=== PATIENT | male | born 1950 | race Caucasian/White ===

== ENCOUNTER 2017-06-18 15:59 | Emergency (ER) | payer OTHER ==
[~2017-06-18] VITALS: Ht 182.9 cm; Wt 80.0 kg
[2017-06-18 16:01] VITALS: BP 137/83; PULSE 81; RESP 16; TEMP 99.1; O2SAT 98
--- NOTE | 2017-06-18 18:09 | PD ---
HPI Chief Complaint: Edema Time Seen by Provider: 17:46 Travel History International Travel<30 days: No Contact w/Intl Traveler<30days: No Traveled to known affect area: No History of Present Illness HPI 66-year-old male presents to the emergency department for evaluation of right leg edema that started approximately one week ago. He saw a primary care physician approximately 3-4 days ago and had ultrasound completed. He was told the ultrasound was negative for DVT. He does state that he thinks he may have been told he a Vazquez cyst. However, since the ultrasound, swelling has worsened with pain with ambulation. The patient went to an urgent care Center was referred to the emergency department for another ultrasound to rule out DVT. Patient denies any fevers or chills. No chest pain or shortness of breath. Patient reports history of varicose veins. Severity moderate. Exacerbating factor is ambulation. Alleviating factor: rest. Pain is aching, sharp in calf. PFSH Social History Alcohol Use: No Tobacco Use: No Substance Use: No Allergies-Medications (Allergen,Severity, Reaction): Coded Allergies: No Known Allergies (Verified Allergy, Mild, 06/18/17) Reported Meds & Prescriptions Reported Meds & Active Scripts Active Reported Aspirin 81 Mg Chew 81 Mg CHEW DAILY Zantac (Ranitidine HCl) 150 Mg Tab 150 Mg PO BID Review of Systems Except as stated in HPI: all other systems reviewed are Neg Physical Exam Narrative GENERAL: Well-nourished, well-developed male patient, afebrile. SKIN: Focused skin assessment warm/dry. No erythema or warmth of her right leg. HEAD: Normocephalic. Atraumatic. EYES: No scleral icterus. No injection or drainage. NECK: Supple, trachea midline. No JVD or lymphadenopathy. CARDIOVASCULAR: Regular rate and rhythm without murmurs, gallops, or rubs. Right pedal pulses 1+, able to easily found with Doppler. RESPIRATORY: Breath sounds equal bilaterally. No accessory muscle use. Lungs sounds are clear to auscultation. GASTROINTESTINAL: Abdomen soft, non-tender, nondistended. MUSCULOSKELETAL: No cyanosis, or edema. Patient's tenderness and swelling over right calf. No erythema or warmth. Calf is soft, no evidence of compartment syndrome. BACK: Nontender without obvious deformity. No CVA tenderness. Data Data Last Documented VS Vital Signs Date Time Temp Pulse Resp B/P (MAP) Pulse Ox O2 Delivery O2 Flow Rate FiO2 06/18/17 18:22 70 17 141/86 (104) 100 Room Air 06/18/17 16:01 99.1 Orders Orders Us Leg Venous Doppler (06/18/17 ) MDM Medical Decision Making Medical Screen Exam Complete: Yes Emergency Medical Condition: Yes Medical Record Reviewed: Yes Interpretation(s) US leg venous doppler right - normal examination; Complex Vazquez's Cyst Differential Diagnosis DVT versus Vazquez cyst versus edema Narrative Course 66-year-old male presents to the emergency department for evaluation of right leg pain and swelling that started 1 week ago. Venous Doppler ultrasound of right lower extremity is ordered and pending. US shows normal examination, complex Vazquez cyst. Patient is instructed to elevate, warm compresses, follow up with his primary care physician. Patient return here for any acute worsening of symptoms. He verbalizes agreement and understanding. The patient was discharged in stable condition with instructions, including return instructions and follow up instructions. Diagnosis Primary Impression: Vazquez cyst Qualified Codes: M71.21 - Synovial cyst of popliteal space [Vazquez], right knee Referrals: Primary Care Physician call for appointment Patient Instructions: Bakers Cyst (ED), General Instructions Additional Instructions: Elevate your right leg. Wear knee immobilizer as needed for support. Ice/heat. [id number] Tylenol or ibuprofen as needed for pain. Follow-up with your primary care physician. Return to the emergency department for any acute worsening of symptoms. Med/Other Pt SpecificInfo: No Change to Meds Disposition: 01 DISCHARGE HOME Condition: Stable Adela Chadwick Jun 18, 2017 18:09
[2017-06-18] MEDS ORDERED: ZANT150T2 PO (18:13)
[2017-06-18] MEDS ORDERED: ASPI-516 CHEW (18:13)
[2017-06-18 18:22] VITALS: BP 141/86; PULSE 70; RESP 17; O2SAT 100
--- NOTE | 2017-06-18 19:17 | RADRPT ---
EXAM DATE/TIME: 06/18/2017 18:47 [place] COMPARISON: No previous studies available for comparison. INDICATIONS : Right leg swelling. MEDICAL HISTORY : Gastroesophageal reflux disease. Varicocele. SURGICAL HISTORY : None. ENCOUNTER: Subsequent ACUITY: 4 - 6 days PAIN SCORE: 9/10 LOCATION: Right leg. TECHNIQUE: Venous ultrasound of the leg was performed from the inguinal ligament to the proximal calf. Real-isael e, color Doppler and spectral tracing, compression and augmentation techniques were used. FINDINGS: There is normal compressibility of the deep venous system from the inguinal region to the proximal ca lf. No echogenic clot is seen in the lumen of the common femoral, femoral, popliteal, and posterior tibial veins. There is a normal response of the venous system to proximal and distal augmentation an d respiration. CONCLUSION: Normal examination. Complex Vazquez's cyst. Humberto Thomas MD on June 18, 2017 at 19:14 Board Certified Radiologist. This report was verified electronically.
[2017-06-18 19:19] VITALS: BP 134/75; PULSE 72; RESP 18; O2SAT 100
== END 2017-06-18 20:17 | disposition home or self-care (01) ==
LOC: NEPC 15:59
DX: M71.21 Synovial cyst of popliteal space [Baker], right knee (principal); Z79.82 Long term (current) use of aspirin; Z79.899 Other long term (current) drug therapy
CPT/HCPCS: 93971; 99284; L1830

== ENCOUNTER 2018-01-31 23:25 | Emergency (ER) | payer OTHER ==
[~2018-01-31] VITALS: Ht 182.9 cm; Wt 70.0 kg
[~2018-01-31 23:25] MED LIST: ASPI-516 CHEW; ZANT150T2 PO
[2018-01-31 23:28] VITALS: BP 151/79; PULSE 77; RESP 16; TEMP 97.5; O2SAT 98
[2018-02-01 00:10] VITALS: BP 151/75; PULSE 71; RESP 16; O2SAT 98
[2018-02-01] MEDS ORDERED: SODIUM CHLORID 0.9% 500 ML INJ 500 ML IV ONE (00:30)
[2018-02-01 01:00] LABS: BASOPHIL % 0.6 % (0.0-2.0); EOSINOPHIL # 0.1 TH/MM3 (0-0.4); EOSINOPHIL % 0.7 % (0.0-4.0); HEMATOCRIT 42.3 % (39.0-51.0); HEMOGLOBIN 14.8 GM/DL (13.0-17.0); LYMPH % 16.9 % (9.0-44.0); LYMPHOCYTE # 1.2 TH/MM3 (1.0-4.8); MEAN CELL VOLUME 94.8 FL (80.0-100.0); MEAN CORPUSCULAR HEMOGLOBIN 33.2 PG (27.0-34.0); MEAN PLATELET VOLUME 11.3 FL (7.0-11.0); MONO % 12.1 % (0.0-8.0); MONOCYTE # 0.9 TH/MM3 (0-0.9); NEUT % 69.7 % (16.0-70.0); PLATELET COUNT 194 TH/MM3 (150-450); RED BLOOD COUNT 4.46 MIL/MM3 (4.50-5.90); RED CELL DISTRIBUTION WIDTH 13.7 % (11.6-17.2); WHITE BLOOD COUNT 7.2 TH/MM3 (4.0-11.0)
[2018-02-01 01:12] LABS: PROTHROMBIN TIME - PATIENT 10.6 SEC (9.8-11.6)
[2018-02-01 01:23] LABS: ALBUMIN 4.1 GM/DL (3.4-5.0); ALT (GPT) 29 U/L (12-78); AST (GOT) 27 U/L (15-37); BICARBONATE 28.8 MEQ/L (21.0-32.0); BLOOD UREA NITROGEN 13 MG/DL (7-18); CALCIUM 8.5 MG/DL (8.5-10.1); CHLORIDE 102 MEQ/L (98-107); CREATININE 1.22 MG/DL (0.60-1.30); GLOMERULAR FILTRATION RATE 59 ML/MIN (>89); GLUCOSE,RANDOM 103 MG/DL (74-106); SODIUM (NA) 138 MEQ/L (136-145)
[2018-02-01 01:27] LABS: ALKALINE PHOSPHATASE 52 U/L (45-117); TOTAL BILIRUBIN ADULT 1.8 MG/DL (0.2-1.0); TOTAL PROTEIN 6.9 GM/DL (6.4-8.2); TROPONIN I LESS THAN 0.02 NG/ML (0.02-0.05)
[2018-02-01 02:09] LABS: BACTERIA, URINE RARE /hpf; BILIRUBIN, URINE NEG (NEG); BLOOD, URINE NEG (NEG); GLUCOSE,URINE NEG (NEG); HYALINE CAST, URINE 1 /lpf (RARE); KETONE, URINE NEG (NEG); MUCUS URINE FEW /lpf (OCC); NITRITE,URINE NEG (NEG); URINE COLOR YELLOW (YELLW/STRAW); URINE LEUKOCYTE ESTERASE NEG (NEG)
--- NOTE | 2018-02-01 04:30 | PD ---
HPI Chief Complaint: Medical Clearance Time Seen by Provider: 00:11 Travel History International Travel<30 days: No Contact w/Intl Traveler<30days: No Traveled to known affect area: No History of Present Illness HPI Patient is a 67 year old male who is brought in by his friends due to concerns he is not acting right. Per the women with him, he is a good friend of their mothers who suddenly today. They say he is not acting like himself. He says he has lost a considerable amount of weight over the past few months. He says he does not have much of an appetite. He also complains of ringing in his ears. He says this has all been going on for several months. He denies headache, chest pain, fever, chills. He has seen his primary doctor and was given medication for depression and told he had hypothyroidism. He has also seen ENT for the ringing in his ears, but did not want to have the testing done that was recommended. He says he does not really know why he was brought to the ED. [facility] Past Medical History GERD: Yes Social History Alcohol Use: No Tobacco Use: No Substance Use: No Allergies-Medications (Allergen,Severity, Reaction): Coded Allergies: No Known Allergies (Verified Allergy, Mild, 01/31/18) Reported Meds & Prescriptions Reported Meds & Active Scripts Active Reported Aspirin 81 Mg Chew 81 Mg CHEW DAILY Zantac (Ranitidine HCl) 150 Mg Tab 150 Mg PO BID Review of Systems Except as stated in HPI: all other systems reviewed are Neg General / Constitutional: No: Fever, Chills Eyes: No: Blurred Vision HENT: No: Headaches Cardiovascular: No: Chest Pain or Discomfort Respiratory: No: Shortness of Breath Gastrointestinal: No: Nausea, Vomiting Musculoskeletal: No: Myalgias Skin: No Rash, No Change in Pigmentation Neurologic: No: Weakness, Dizziness, Syncope Psychiatric: Positive: Depression Physical Exam Narrative GENERAL: Awake and alert, in no acute distress. SKIN: Focused skin assessment warm/dry. No wounds or signs of infection. HEAD: Atraumatic. Normocephalic. EYES: Pupils equal and round. No scleral icterus. EOMI. ENT: Mucous membranes pink and moist. NECK: Trachea midline. No JVD. CARDIOVASCULAR: Regular rate and rhythm. No murmur appreciated. RESPIRATORY: No accessory muscle use. Clear to auscultation. Breath sounds equal bilaterally. GASTROINTESTINAL: Abdomen soft, nondistended. Mild tenderness along the left side of the abdomen. MUSCULOSKELETAL: No obvious deformities. No clubbing. No cyanosis. No edema. NEUROLOGICAL: Awake and alert, oriented x 4. No obvious cranial nerve deficits. Motor grossly within normal limits. Normal speech. PSYCHIATRIC: Appropriate mood and affect; insight and judgment normal. Data Data Last Documented VS Vital Signs Date Time Temp Pulse Resp B/P (MAP) Pulse Ox O2 Delivery O2 Flow Rate FiO2 02/01/18 00:10 71 16 151/75 (100) 98 Room Air 01/31/18 23:28 97.5 Orders Orders Iv Access Insert/Monitor (02/01/18 00:30) Complete Blood Count With Diff (02/01/18 00:30) Comprehensive Metabolic Panel (02/01/18 00:30) Act Partial Throm Time (Ptt) (02/01/18 00:30) Prothrombin Time / Inr (Pt) (02/01/18 00:30) Troponin I (02/01/18 00:30) Creatine Kinase (Cpk) (02/01/18 00:30) Urinalysis - C+S If Indicated (02/01/18 00:30) Alcohol (Ethanol) (02/01/18 00:30) Thyroid Stimulating Hormone (02/01/18 00:30) Sodium Chlorid 0.9% 500 Ml Inj (Ns 500 M (02/01/18 00:30) Labs Laboratory Tests Test 02/01/18 00:35 02/01/18 01:55 White Blood Count 7.2 TH/MM3 Red Blood Count 4.46 MIL/MM3 Hemoglobin 14.8 GM/DL Hematocrit 42.3 % Mean Corpuscular Volume 94.8 FL Mean Corpuscular Hemoglobin 33.2 PG Mean Corpuscular Hemoglobin Concent 35.0 % Red Cell Distribution Width 13.7 % Platelet Count 194 TH/MM3 Mean Platelet Volume 11.3 FL Neutrophils (%) (Auto) 69.7 % Lymphocytes (%) (Auto) 16.9 % Monocytes (%) (Auto) 12.1 % Eosinophils (%) (Auto) 0.7 % Basophils (%) (Auto) 0.6 % Neutrophils # (Auto) 5.0 TH/MM3 Lymphocytes # (Auto) 1.2 TH/MM3 Monocytes # (Auto) 0.9 TH/MM3 Eosinophils # (Auto) 0.1 TH/MM3 Basophils # (Auto) 0.0 TH/MM3 CBC Comment DIFF FINAL Differential Comment Prothrombin Time 10.6 SEC Prothromb Time International Ratio 1.0 RATIO Activated Partial Thromboplast Time 22.8 SEC Blood Urea Nitrogen 13 MG/DL Creatinine 1.22 MG/DL Random Glucose 103 MG/DL Total Protein 6.9 GM/DL Albumin 4.1 GM/DL Calcium Level 8.5 MG/DL Alkaline Phosphatase 52 U/L Aspartate Amino Transf (AST/SGOT) 27 U/L Alanine Aminotransferase (ALT/SGPT) 29 U/L Total Bilirubin 1.8 MG/DL Sodium Level 138 MEQ/L Potassium Level 4.3 MEQ/L Chloride Level 102 MEQ/L Carbon Dioxide Level 28.8 MEQ/L Anion Gap 7 MEQ/L Estimat Glomerular Filtration Rate 59 ML/MIN Total Creatine Kinase 119 U/L Troponin I LESS THAN 0.02 NG/ML Thyroid Stimulating Hormone 3rd Gen 8.820 uIU/ML Ethyl Alcohol Level LESS THAN 3 MG/DL Urine Color YELLOW Urine Turbidity CLEAR Urine pH 6.0 Urine Specific [place] 1.010 Urine Protein NEG mg/dL Urine Glucose (UA) NEG mg/dL Urine Ketones NEG mg/dL Urine Occult Blood NEG Urine Nitrite NEG Urine Bilirubin NEG Urine Urobilinogen LESS THAN 2 mg/dL Urine Leukocyte Esterase NEG Urine RBC 1 /hpf Urine WBC LESS THAN 1 /hpf Urine Bacteria RARE /hpf Urine Hyaline Casts 1 /lpf Urine Mucus FEW /lpf Microscopic Urinalysis Comment CULT NOT INDICATED MDM Medical Decision Making Medical Screen Exam Complete: Yes Emergency Medical Condition: Yes Medical Record Reviewed: Yes Differential Diagnosis electrolyte abnormalities vs dehydration vs depression vs intraabdominal pathology Narrative Course Patient is a 67 year old male brought in by friends due to concerns he is not acting like himself. They do not see him on a regular basis, they live in [place]. History is vague as to why he is not acting like himself. Patient is alert, oriented x 4. Labs drawn show elevated TSH, no other abnormalities. Patient is refusing CT scans. We had a very long discussion as to why I believed he needed the scans. I explained that he has had pain and weight loss and we needed to check for masses or something else that could be causing his symptoms. He adamantly refuses the scans. He understands the consequences of not having further testing. Patient would like to go home. Patient is not altered and understands what is going on. I do not feel there is any reason to keep him here against his will. He is not a danger to himself or others. Patient advised that he needs to follow up with his doctor and start thyroid medicine. Advised he should go back to ENT to help with the ringing in his ears. Advised he may return at any time for any concerns. Diagnosis Primary Impression: Hypothyroid Qualified Codes: E03.9 - Hypothyroidism, unspecified Additional Impression: Tinnitus Qualified Codes: H93.13 - Tinnitus, bilateral Patient Instructions: General Instructions, Hypothyroidism (ED), Tinnitus (ED) Additional Instructions: You have hypothyroidism. Follow up with your doctor for treatment. Return to the ENT for help with the ringing in your ears. Return to the ED any time for any worsening symptoms. Disposition: 01 DISCHARGE HOME Condition: Stable Courtney Christianson MD Feb 01, 2018 04:30
[2018-02-01 09:00] VITALS: BP 138/72
== END 2018-02-01 09:03 | disposition home or self-care (01) ==
LOC: NEPC 23:25
DX: E03.9 Hypothyroidism, unspecified (principal); H93.13 Tinnitus, bilateral; R10.819 Abdominal tenderness, unspecified site; R63.4 Abnormal weight loss; K21.9 Gastro-esophageal reflux disease without esophagitis; Z79.899 Other long term (current) drug therapy
CPT/HCPCS: 80053; 80307; 81001; 82550; 84443; 84484; 85025; 85610; 85730; 99284; J7040

== ENCOUNTER 2018-02-15 07:17 | Observation (INO) ==
[2018-02-16 16:02] VITALS: BP 110/58; PULSE 78; RESP 18; TEMP 98.3; O2SAT 95
== END 2018-02-16 18:24 ==
LOC: NEDA 07:17 → NEPC 07:17 → NEPGCP 07:17
PROVIDERS: ADMIT Hospitalist; ATTEND Hospitalist

== ENCOUNTER 2018-02-16 18:03 | Inpatient (IN) ==
[2018-02-16] MEDS ORDERED: Acetaminophen 325 MG Tablet PO PRN (20:36)
[2018-02-17] MEDS ORDERED: Aluminum/Magnesium/Simethacone Susp 30 ML UDC PO PRN (07:53)
--- NOTE | 2018-02-17 16:41 | P.HPPSY ---
Provisional Diagnosis Admission Date: February 16, 2018 18:28 [place] I.: Major depressive disorder Competence Certification of Person's Competence To Provide Express and Informed Consent I have personally examined Lv High, a person being served at [facility] on, February 17, 2018 1632. Express and informed consent means consent voluntarily given in writing, by a competent person, after sufficient explanation and disclosure of the subject matter involved to enable the person to make a knowing and willful decision without any element of force, fraud, deceit, duress, or other form of constraint or coercion. This person is 18 years of age or older, is not now known to be incompetent to consent to treatment with a guardian advocate, and does not have a health care surrogate or proxy currently making medical treatment decisions. I have found this person to be one of the following: [] Competent to provide express and informed consent, as defined above, for voluntary admission to this facility and is competent to provide express and informed consent for treatment. He/she has the consistent capacity to make well reasoned, willful, and knowing decisions concerning his or her medical or mental health treatment. The person fully and consistently understands the purpose of the admission for examination/placement and is fully capable of personally exercising all rights assured under [place]xxx] Incompetent to provide express and informed consent to voluntary admission , and this is incompetent to provide express and informed consent to treatment. The person must be transferred to involuntary status and a petition for a guardian advocate filed with the Circuit Court. [] Refusing to provide express and informed consent to voluntary admission but is competent to provide express and informed consent for treatment. The person must be discharged or transferred to involuntary status. Form shall be completed within 24 hours of a person's arrival at the receiving facility and filed in the clinical record of each person: 1. Admitted on a voluntary basis 2. Permitted to provide express and informed consent to his/her own treatment 3. Allowed to transfer from involuntary to voluntary status 4. Prior to permitting a person to consent to his or her own treatment after having been previously found incompetent to consent to treatment. History of Present Illness Capacity: Has capacity History of Present Illness: Patient is a 67-year-old man, single, domiciled in [place], also security income, with a past psychiatric history of depression one previous psychiatric admission, no previous suicide attempts, no history of self- injurious behavior, with a past medical history significant for GERD, HTN, hypothyroidism, who was brought in by EMS after suicide attempt via overdose in the context of recently having loss a loved one as well as his pets which patient was transferred to the inpatient psychiatry unit after medical stabilization on the medical floor for further psychiatric evaluation and management. Patient was found sitting in hospital chair in day room of the unit noted with dysphoria, psychomotor retardation, neurovegetative symptoms of depression with limited cooperation due to current symptomatology. Patient states he is feeling "not so good" stating that he had taken Zoloft about 25 tablets as he was feeling depressed. He reports having had personal problems of a friend who recently , having been losing weight recently as well as having lost his pets as well. Patient states he has been feeling very lonely, isolated of which led to his overdose which after taking to have tablets of Zoloft expected to . Patient states that he had been previously on his medications but had stopped due to worsening of tinnitus. He reports having had decreased appetite, energy and concentration along with disturbance of sleep and having had suicide ideations for weeks. Patient this time continues report feeling depressed along with suicide ideations but denying any perceptual disturbances or delusions. Family psychiatric history: Unable to assess due to patient limited cooperation interview. Past psychiatric history: Previous psychiatric diagnoses depression, one previous psychiatric admission in 1995, no previous suicide attempts, denies self-injurious behavior. Patient reports previously on medication for depression, Zoloft but discontinued due to adverse drug reactions. Substance use history: Denies Past medical history: GERD, HTN, hypothyroidism Allergies: NKDA Social history: Single, domiciled in [place], also security benefits. - Inpatient Certification I certify that the inpatient services were ordered in accordance with Medicare regulations governing the order. This includes certification that hospital inpatient services are reasonable and necessary and in the case of services not specified as inpatient-only under 42 CFR 419.22(n), that they are appropriately provided as inpatient services in accordance to with the 2-midnight benchmark under 43 CFR 412.3(e) I certify that inpatient psychiatric hospital services are medically necessary. Evaluation and treatment and/or diagnostic testing are expected to improve the patient's condition. The patient needs on a daily basis, active treatment furnished directly by or requiring the supervision of inpatient psychiatric facility personnel. Estimated Total Length of Stay (Days): 5 Plans for Post Hospital Care: Not yet determined Review of Systems All other systems reviewed negative except as stated in HPI [facility] - History History Provided By: Patient - Family History Family History: Family History (Last Updated 02/15/18 @ 11:45 by John Vang MD) Other Anxiety and depression CAD (coronary artery disease) Heart disease - Tobacco History Second Hand Smoke Exposure: Yes Smoking Status: Refused to answer - Alcohol History How Often Do You Have a Drink Containing Alcohol: 2 to 4 times a month - Substance Use History Substance History: Unable to Obtain Quality Measures - Substance Abuse History Drug or alcohol use in the past 12 months: Denies - Patient Strengths Patient's strengths (minimum of 2): Verbal and communicative Medications and Allergies Active Medications: Active Medications Acetaminophen (Tylenol) 650 mg PO Q4H PRN PRN Reason: PAIN SCALE 1 TO 10 Al Hydrox/Mg Hydrox/Simethicone (Mag-Al Plus Susp Liq) 30 ml PO Q6H PRN PRN Reason: DYSPEPSIA Al Hydroxide/Mg Hydroxide (Milk Of Magnesia Liq) 30 ml PO Q12H PRN PRN Reason: Mild Constipation Diphenhydramine HCl (Benadryl) 50 mg PO HS DRAKE Hydroxyzine HCl (Atarax) 50 mg PO Q6H PRN PRN Reason: ANXIETY Venlafaxine HCl (Effexor Xr) 37.5 mg PO DAILY DRAKE Allergies Allergy/AdvReac Type Severity Reaction Status Date / Time No Known Allergies Allergy Verified 02/15/18 11:06 Home Medications Medication Instructions Recorded Confirmed Type sertraline [Zoloft] 50 mg PO DAILY 02/15/18 02/15/18 History Exam Vital signs: Vital Signs 02/16/18 22:27 Respiratory Rate 16 Intake & Output 02/16/18 02/17/18 02/17/18 18:59 06:59 18:59 Other: # Voids 1 Narrative: Patient not noted to be acute distress, no signs of gross motor abnormalities, no signs of tremor or EPS, is noted to have some psychomotor retardation. Mental Status Examination Appearance: Other (In [facility]) Consciousness: Alert Orientation: Person, Place, Date/Time Speech: Slow Fund of Knowledge: Inadequate Attention and Concentration: Inadequate Memory: Unremarkable Mood: Sad Affect: Sad Thought Process & Associations: Intact, Linear Thought Content: Appropriate Hallucination Type: None Delusion Type: None Suicidal Ideation: Yes Suicidal Plan: No Suicidal Intention: No Homicidal Ideation: No Homicidal Plan: No Homicidal Intention: No Insight: Poor Judgment: Poor Assessment and Plan - Assessment (1) Major depressive disorder Code(s): F32.9 - Major depressive disorder, single episode, unspecified Status : Acute - Plan Plan: Estimated LOS: [] days Patient is a 67-year-old man who carries a diagnosis of depression, one previous psychiatric admission, no previous suicide attempts who was admitted to the [place] psychiatry unit due to recent overdose in a suicide attempt in the context of worsening depressive symptoms and recent loss of a loved one which patient requires inpatient psychiatric stabilization and safety. Petition for involuntary hospitalization started, patient has capacity to consent for treatment We will start patient on Effexor XR 37.5 mg p.o. daily for depression, continue patient on rest of medications for chronic medical illnesses. Continue to monitor mood and behavior. Social work intervention for psychosocial assessment. Discharge planning a progress. Justification for Continued Inpatient Stay: At risk of further decompensation a lower level of care. Request Healthcare Surrogate/Guardian Advocate?: No (1) Major depressive disorder Qualifiers: Major depression recurrence: recurrent Active/Remission status: currently active Major depression episode severity: severe Psychotic features: without psychotic features Qualified Code(s): F33.2 - Major depressive disorder, recurrent severe without psychotic features
--- NOTE | 2018-02-17 17:52 | P.CON ---
History of Present Illness Service: Hospitalist Consult date: 02/17/18 Requesting Physician: John Zee Reason for Consult: Medical management Primary Care Provider: UNKNOWN Chief Complaint: "I do not feel well" History of Present Illness: Patient is a 67-year-old male with a past medical history of hypertension, GERD, hypothyroidism and tinnitus. Psychiatric history includes depression with no previous suicide attempt. He was admitted February 16, 2018 by Taylor pradhan due to suicide attempt. He told the officer responding to the call that he took "25 Zoloft". He has recently lost his girlfriend after an unexpected and has struggled with grief since then. He was previously seen in the emergency room January 2018 when family friends brought him saying that he was not acting like himself. They also report that he has lost a lot of weight over the past few months. At the time of that visit patient refused CT scan. He did have a complaint of ringing in the ears and was recommended to follow-up with ENT. He was found to be hypothyroid instructed to follow-up with his primary. Patient is seen in the rec room seated in a chair. He is unable to communicate much of his history or how he is currently feeling. He keeps referring to hearing voices in his room. He also becomes very teary when discussing his current life. He says he is very sad and still grieving his girlfriend. He has not followed up with primary concerning his hypothyroidism nor the ENT regarding the tinnitus. Reports that he still has the tinnitus however now it is sometimes "singsong". He denies any chest pain or shortness of breath. Denies fever, nausea or vomiting. Says that his appetite has improved some but he is unable to tell me how much he eats each day. He would like to know why he is so tired and feels so bad. Review of Systems unobtainable due to mental condition PMFSH - History History Provided By: Patient, Medical Record - Medical / Surgical Hx Neg / Unobtainable Surgical History: Unable to Obtain (Patient is unreliable historian) - Medical History Medical History: Medical History (Last Updated 02/17/18 @ 17:33 by CORWIN Clay) Grief (Acute) Hypothyroid (Acute) HTN (hypertension) (Acute) GERD (gastroesophageal reflux disease) (Acute) - Family History Family History: Family History (Last Reviewed 02/17/18 @ 17:33 by CORWIN Clay) Other Anxiety and depression CAD (coronary artery disease) Heart disease - Tobacco History Second Hand Smoke Exposure: Yes Smoking Status: Refused to answer - Alcohol History How Often Do You Have a Drink Containing Alcohol: Unable to Obtain - Substance Use History Substance History: Unable to Obtain Medications and Allergies Active Medications: Active Medications Acetaminophen (Tylenol) 650 mg PO Q4H PRN PRN Reason: PAIN SCALE 1 TO 10 Al Hydrox/Mg Hydrox/Simethicone (Mag-Al Plus Susp Liq) 30 ml PO Q6H PRN PRN Reason: DYSPEPSIA Al Hydroxide/Mg Hydroxide (Milk Of Magnesia Liq) 30 ml PO Q12H PRN PRN Reason: Mild Constipation Diphenhydramine HCl (Benadryl) 50 mg PO HS [facility] Hydroxyzine HCl (Atarax) 50 mg PO Q6H PRN PRN Reason: ANXIETY Venlafaxine HCl (Effexor Xr) 37.5 mg PO DAILY [facility] Allergies Allergy/AdvReac Type Severity Reaction Status Date / Time No Known Allergies Allergy Verified 02/15/18 11:06 Home Medications Medication Instructions Recorded Confirmed Type sertraline [Zoloft] 50 mg PO DAILY 02/15/18 02/15/18 History Physical Exam Vital signs: Vital Signs 02/16/18 22:27 Respiratory Rate 16 Intake & Output 02/16/18 02/17/18 02/17/18 18:59 06:59 18:59 Other: # Voids 1 Narrative: GENERAL: Thin appearing well-developed male. SKIN: Warm and dry. HEAD: Atraumatic. Normocephalic. EYES: Pupils equal and round. No scleral icterus. No injection or drainage. ENT: No nasal bleeding or discharge. Mucous membranes pink and moist. NECK: Trachea midline. No JVD. CARDIOVASCULAR: Regular rate and rhythm. RESPIRATORY: No accessory muscle use. Clear to auscultation. Breath sounds equal bilaterally. GASTROINTESTINAL: Abdomen soft, non-tender, nondistended. Hepatic and splenic margins not palpable. MUSCULOSKELETAL: Extremities without clubbing, cyanosis, or edema. No obvious deformities. NEUROLOGICAL: Awake and alert. No obvious cranial nerve deficits. Motor grossly within normal limits. Normal speech. PSYCHIATRIC: Easily upset; hallucinating ; insight and judgment poor. Assessment and Plan - Plan Summary of illness: Patient is a 67-year-old male with a past medical history of hypertension, GERD, hypothyroidism and tinnitus. Psychiatric history includes depression with no previous suicide attempt. He was admitted February 16, 2018 by Taylor pradhan due to suicide attempt. He told the officer responding to the call that he took "25 Zoloft". He has recently lost his girlfriend after an unexpected and has struggled with grief since then. He was previously seen in the emergency room January 2018 when family friends brought him saying that he was not acting like himself. They also report that he has lost a lot of weight over the past few months. At the time of that visit patient refused CT scan. He was found to be hypothyroid instructed to follow-up with his primary which he did not do. A&P: Grief and depression: -Being managed by psychiatry Hypothyroidism -Not currently taking any medication -TSH 8.8 on 01/31. Will repeat thyroid panel and consider starting levothyroxine if indicated. Will order labs and vital signs; no current results available. DVT prophylaxis; patient is currently ambulatory Discussed with: Patient and nurse. Thank you for this consult.
[2018-02-17 19:09] LABS: Baso # (Auto) 0.1 th/mm3 (0.0-0.2); Baso % (Auto) 0.5 % (0.0-2.0); Eos # (Auto) 0.1 th/mm3 (0.0-0.4); Eos % (Auto) 0.5 % (0.0-4.0); Hemoglobin 13.3 gm/dL (13.0-17.0); Lymph # (Auto) 1.5 th/mm3 (1.0-4.8); Lymph % (Auto) 11.8 % (9.0-44.0); Mean Corpuscular HGB Conc 34.2 % (32.0-36.0); Mean Corpuscular Hemoglobin 32.2 pg (27.0-34.0); Mean Corpuscular Volume 94.1 fL (80.0-100.0); Mean Platelet Volume 11.4 fL (7.0-11.0); Mono # (Auto) 1.3 th/mm3 (0.0-0.9); Mono % (Auto) 10.7 % (0.0-8.0); Neut # (Auto) 9.6 th/mm3 (1.8-7.7); Neut % (Auto) 76.5 % (16.0-70.0); Platelet Count 191 th/mm3 (150-450); Red Blood Count 4.14 mil/mm3 (4.50-5.90); Red Cell Distribution Width 14.2 % (11.6-17.2); White Blood Count 12.5 th/mm3 (4.0-11.0)
[2018-02-17 19:34] LABS: Albumin 3.5 g/dL (3.4-5.0); Anion Gap 9 meq/L (5-15); Aspartate Aminotransferase 20 U/L (15-37); Blood Urea Nitrogen 21 mg/dL (7-18); Calcium 8.6 mg/dL (8.5-10.1); Carbon Dioxide 29.8 meq/L (21.0-32.0); Chloride 103 meq/L (98-107); Glomerular Filtration Rate 55 mL/min (>89); Glucose,Random 124 mg/dL (74-106); Potassium 3.8 meq/L (3.5-5.1); Sodium 142 meq/L (136-145)
[2018-02-17 19:35] LABS: Alanine Aminotransferase 29 U/L (12-78)
[2018-02-17 19:45] LABS: Alkaline Phosphatase 48 U/L (45-117); Free T4 (Free Thyroxine) 0.83 ng/dL (0.76-1.46); Total Protein 6.6 g/dL (6.4-8.2)
--- NOTE | 2018-02-18 07:43 | ECG ---
Date Performed: 02/18/2018 Time Performed: 07:02:20 PTAGE: 67 years EKG: Sinus rhythm NORMAL ECG NO PREVIOUS TRACING DOCTOR: Ishmael Han Interpretating Date/Time 02/18/2018 07:42:45
[2018-02-18] MEDS: Venlafaxine XR 37.5 MG Capsule PO SCH (09:34)
--- NOTE | 2018-02-18 12:45 | P.PN ---
Subjective Interval history: Patient seen sitting up in bed. Reports that he is still hearing voices and seeing things in the pattern on the bathroom door. Asks "why is this happening to me". Does not appear to be in distress but does get teary. Denies any chest pain or shortness of breath. Denies any nausea or vomiting. Reports chills. Patient refuses HIV testing and CT despite encouragement and education. Nursing tells me that he has not been eating or drinking. Physical Exam Vital signs: Vital Signs 02/17/18 19:12 02/18/18 06:16 Temperature 97.1 F L 98.2 F Pulse Rate 67 80 Respiratory Rate 16 16 Blood Pressure 144/81 H 130/70 Pulse Oximetry 97 95 Intake & Output 02/17/18 02/18/18 02/18/18 18:59 06:59 18:59 Intake Total 820 / 820 0 / 0 0 / 0 Balance 820 / 820 0 / 0 0 / 0 Intake: Oral 820 / 820 0 / 0 0 / 0 Other: # Voids 2 1 Narrative: GENERAL: Thin appearing well-developed male. SKIN: Warm and dry. HEAD: Atraumatic. Normocephalic. EYES: Pupils equal and round. No scleral icterus. No injection or drainage. ENT: No nasal bleeding or discharge. Mucous membranes pink and moist. NECK: Trachea midline. No JVD. CARDIOVASCULAR: Regular rate and rhythm. RESPIRATORY: No accessory muscle use. Clear to auscultation. Breath sounds equal bilaterally. GASTROINTESTINAL: Abdomen soft, non-tender, nondistended. MUSCULOSKELETAL: Extremities without clubbing, cyanosis, or edema. No obvious deformities. NEUROLOGICAL: Awake and alert. No obvious cranial nerve deficits. Motor grossly within normal limits. Normal speech. PSYCHIATRIC: Easily upset; hallucinating ; insight and judgment poor. Results - Labs CBC & Chem 7: 02/17/18 18:38 02/17/18 18:38 Laboratory Results - last 24 hr 02/17/18 02/17/18 02/17/18 18:38 18:38 18:38 WBC 12.5 H RBC 4.14 L Hgb 13.3 Hct 39.0 MCV 94.1 MCH 32.2 MCHC 34.2 RDW 14.2 Plt Count 191 MPV 11.4 H Neut % (Auto) 76.5 H Lymph % (Auto) 11.8 [place] % (Auto) 10.7 H Eos % (Auto) 0.5 Baso % (Auto) 0.5 Neut # (Auto) 9.6 H Lymph # (Auto) 1.5 [place] # (Auto) 1.3 H Eos # (Auto) 0.1 Baso # (Auto) 0.1 WBC Differential . Differential Comment Auto diff final Sodium 142 Potassium 3.8 Chloride 103 Carbon Dioxide 29.8 Anion Gap 9 BUN 21 H Creatinine 1.29 Estimated GFR 55 L Random Glucose 124 H Calcium 8.6 Total Bilirubin 1.3 H AST 20 ALT 29 Alkaline Phosphatase 48 Total Protein 6.6 D Albumin 3.5 TSH 3.760 H Free T4 0.83 Total T3 71 Assessment and Plan - Plan Summary of illness: Patient is a 67-year-old male with a past medical history of hypertension, GERD, hypothyroidism and tinnitus. Psychiatric history includes depression with no previous suicide attempt. He was admitted February 16, 2018 by Taylor pradhan due to suicide attempt. He told the officer responding to the call that he took "25 Zoloft". He has recently lost his girlfriend after an unexpected and has struggled with grief since then. He was previously seen in the emergency room January 2018 when family friends brought him saying that he was not acting like himself. They also report that he has lost a lot of weight over the past few months. At the time of that visit patient refused CT scan. He was found to be hypothyroid instructed to follow-up with his primary which he did not do. A&P: Grief and depression: -Being managed by psychiatry Hypothyroidism -Not currently taking any medication -TSH 8.8 on 01/31. Repeat panel 02/17/18: TSH -3.76L ; T4 & T3 normal. Very mild. Levothyroxine not indicated at this time. Recheck in 4-6 weeks. Weight loss -Poor intake/appetite -Depression versus? -Patient refusing additional evaluation. -Consult dietary to start Calorie count. Neutrophilia -Mild WBCs 12.5 on 02/17/18 -Afebrile -Likely reactive due to stress; monitor DVT prophylaxis; patient is currently ambulatory Discussed with: Patient and nurse.
--- NOTE | 2018-02-18 14:59 | P.CONPSY ---
Provisional Diagnosis Admission Date: February 16, 2018 18:28 [place] I.: Major depressive disorder History of Present Illness Primary Care Provider: UNKNOWN Chief Complaint: "I do not feel well" History of Present Illness: The patient is a 67-year-old man, single, domiciled alone in [place], supported by Social Security, with psychiatric history of depression, 1 previous psychiatric hospitalization in 1995, no previous suicide attempts, he denies the use of illegal drugs or alcohol, with a past medical history of GERD , hypothyroidism, hypertension, was brought to the ED by EMS after a suicidal attempt patient states, he wanted to end his life as he was coming to the end of the rope, he ingested 25 pills of Zoloft 50 mg each. He reported that his girlfriend of many years recently and in the near distant past he has lost his beloved pets. On admission, patient has acetaminophen level of less than 2 and a salicylate level of less than 1.7. His vitals remained stable. He denied during my exam of chest pain, shortness of breath or heart palpitation. He is currently [place] act. EMR was reviewed. The case was discussed with ER team. Patient was consulted to me for psychiatric second opinion. Patient is calm, cooperative, he says that he feels better. Committed to continue psychiatric recommendations and medications. He denies SI , HI, visual and auditory hallucinations at the moment. [facility] - History History Provided By: Patient, Medical Record - Medical History Medical History: Medical History (Last Updated 02/17/18 @ 17:33 by CORWIN Clay) Grief (Acute) Hypothyroid (Acute) HTN (hypertension) (Acute) GERD (gastroesophageal reflux disease) (Acute) - Family History Family History: Family History (Last Reviewed 02/17/18 @ 17:33 by CORWIN Clay) Other Anxiety and depression CAD (coronary artery disease) Heart disease - Tobacco History Second Hand Smoke Exposure: Yes Smoking Status: Refused to answer - Alcohol History How Often Do You Have a Drink Containing Alcohol: Unable to Obtain - Substance Use History Substance History: Unable to Obtain Medications and Allergies Active Medications: Active Medications Acetaminophen (Tylenol) 650 mg PO Q4H PRN PRN Reason: PAIN SCALE 1 TO 10 Al Hydrox/Mg Hydrox/Simethicone (Mag-Al Plus Susp Liq) 30 ml PO Q6H PRN PRN Reason: DYSPEPSIA Al Hydroxide/Mg Hydroxide (Milk Of Mónica Bone) 30 ml PO Q12H PRN PRN Reason: Mild Constipation Diphenhydramine HCl (Benadryl) 50 mg PO HS [facility] Last Admin: 02/18/18 06:04 Dose: Not Given Hydroxyzine HCl (Atarax) 50 mg PO Q6H PRN PRN Reason: ANXIETY Venlafaxine HCl (Effexor Xr) 37.5 mg PO DAILY [facility] Last Admin: 02/18/18 09:34 Dose: 37.5 mg Allergies Allergy/AdvReac Type Severity Reaction Status Date / Time No Known Allergies Allergy Verified 02/15/18 11:06 Home Medications Medication Instructions Recorded Confirmed Type sertraline [Zoloft] 50 mg PO DAILY 02/15/18 02/15/18 History Exam Vital signs: Vital Signs 02/17/18 19:12 02/18/18 06:16 Temperature 97.1 F L 98.2 F Pulse Rate 67 80 Respiratory Rate 16 16 Blood Pressure 144/81 H 130/70 Pulse Oximetry 97 95 Intake & Output 02/17/18 02/18/18 02/18/18 18:59 06:59 18:59 Intake Total 820 / 820 0 / 0 240 / 240 Balance 820 / 820 0 / 0 240 / 240 Intake: Oral 820 / 820 0 / 0 240 / 240 Other: # Voids 2 1 Mental Status Examination Appearance: Other (In [facility]) Consciousness: Alert Orientation: Person, Place, Date/Time Speech: Slow Fund of Knowledge: Inadequate Attention and Concentration: Inadequate Memory: Unremarkable Mood: Sad Affect: Sad Thought Process & Associations: Intact, Linear Thought Content: Appropriate Hallucination Type: None Delusion Type: None Suicidal Ideation: Yes Suicidal Plan: No Suicidal Intention: No Homicidal Ideation: No Homicidal Plan: No Homicidal Intention: No Insight: Poor Judgment: Poor Assessment and Plan - Assessment (1) Major depressive disorder Code(s): F32.9 - Major depressive disorder, single episode, unspecified Status : Acute - Plan Plan: Estimated LOS: [] days Patient is a 67-year-old man who carries a diagnosis of depression, one previous psychiatric admission, no previous suicide attempts who was admitted to the [place] unit due to recent overdose in a suicide attempt in the context of worsening depressive symptoms and recent loss of a loved one which patient requires inpatient psychiatric stabilization and safety. Petition for involuntary hospitalization started, patient has capacity to consent for treatment We will start patient on Effexor XR 37.5 mg p.o. daily for depression, continue patient on rest of medications for chronic medical illnesses. Continue to monitor mood and behavior. Social work intervention for psychosocial assessment. Discharge planning a progress. I have Seen and examined this patient, reviewed documentation, I agree and concur with Dr. Zee assessment and plan. Consult appreciated. Justification for Continued Inpatient Stay: Continue psychiatric admission for stabilization Request Healthcare Surrogate/Guardian Advocate?: No (1) Major depressive disorder Qualifiers: Major depression recurrence: recurrent Active/Remission status: currently active Major depression episode severity: severe Psychotic features: without psychotic features Qualified Code(s): F33.2 - Major depressive disorder, recurrent severe without psychotic features
--- NOTE | 2018-02-18 17:01 | P.PNPSY ---
Subjective Remarks: Patient seen for follow-up, chart reviewed. Discussion with nursing staff reported that the patient noted to be somewhat paranoid, refusing to eat or drink, mostly laying in bed. Patient was found lying hospital bed noted be superficially cooperative with poor eye contact noted with continued psychomotor retardation, with dysphoria. Patient states that he is feeling " not good" continues to report poor motivation, continues with depressed mood continues with thoughts of not wanting to be alive. Patient encouraged to maintain adequate nutritional intake. Patient complaining of not having had a bowel movement for some time. Patient agrees to start antidepressant therapy. Review of Systems All other systems reviewed negative except as stated in HPI Mental Status Examination Appearance: Other (In [facility]) Consciousness: Alert Orientation: Person, Place, Date/Time Speech: Slow Fund of Knowledge: Inadequate Attention and Concentration: Inadequate Memory: Unremarkable Mood: Sad Affect: Sad Thought Process & Associations: Intact, Linear Thought Content: Appropriate Hallucination Type: None Delusion Type: None Suicidal Ideation: Yes Suicidal Plan: No Suicidal Intention: No Homicidal Ideation: No Homicidal Plan: No Homicidal Intention: No Insight: Poor Judgment: Poor Assessment and Plan - Assessment (1) Major depressive disorder Code(s): F32.9 - Major depressive disorder, single episode, unspecified Status : Acute - Plan Plan: Patient this time continues with depressed mood, continue with thoughts of not wanting to be alive. Patient agreed to start medications today and has signed consent for starting treatment. We will continue current treatment. We will continue recommendations as per prior medical team. Consult dietitian ordered due to poor p.o. intake. Abdominal x-ray ordered to assess for constipation. We will continue to monitor mood and behavior. We will continue the patient encouraged to be displayed groups and activities and to increase adequate nutritional intake. Discharge planning in progress. Justification for Continued Inpatient Stay: At risk for further decompensation if at lower level of care Request Healthcare Surrogate/Guardian Advocate?: No (1) Major depressive disorder Qualifiers: Major depression recurrence: recurrent Active/Remission status: currently active Major depression episode severity: severe Psychotic features: without psychotic features Qualified Code(s): F33.2 - Major depressive disorder, recurrent severe without psychotic features
--- NOTE | 2018-02-18 17:20 | XR ---
EXAM DATE: 02/18/2018 5:13 PM EDT AGE/SEX: 67 years / Male INDICATIONS: Constipation. CLINICAL DATA: This is the patient's initial encounter. Patient reports that signs and symptoms have been present for 3 days and indicates a pain score of 7/10. MEDICAL/SURGICAL HISTORY: Gastroesophageal reflux disease. None. COMPARISON: No prior exams available for comparison. FINDINGS: Examination of the abdomen demonstrates a normal bowel gas pattern. There is some stool seen in the c olon. However, there is no abnormal dilatation of the large or small bowel. No definite calcification s are seen overlying the kidneys. No free air is identified. No organomegaly is evident. Mild degene rative changes of the lumbar spine. CONCLUSION: Benign abdomen. Electronically signed by: Richie Mustafa MD 02/18/2018 5:19 PM EDT
--- NOTE | 2018-02-18 17:31 | P.DIET ---
Nutritional Evaluation Type of nutrition evaluation: initial Nutrition consult regarding: Diet Evaluation Nutrition screening: Weight Loss > 10 lbs, MDC Screening comments: Poor PO Intake; Calorie Counting Subjective Barriers to Nutrition: Refuses to eat at times Subjective Comments: Pt says "it doesnt matter" when asked about his food preferences and whether he would like to have an oral nutritional supplement. Pt reported to Nursing that he has lost 45-lb recently. Pt's Ht estimated as 71-inches(180.34cm). Bedscale wt during this visit 67.5kg-used for the assessment here.Calorie Count started and Nursing informed. Objective - Diagnosis Major Depressive DO, Recurrent - Indications of Malnutrition Characteristics: Weight loss - Objective % IBW: 86 Energy Needs - Lower Range (kCal/kg): 30 Energy Needs - Upper Range (kCal/kg): 35 Lower Limit kCal/kg (kCals): 2,025 Upper Limit kCal/kg (kCals): 2,363 Lower Limit Protein Factor (Grams per Kg): 1.1 Upper Limit Protein Factor (Grams per Kg): 1.4 Lower Protein Needs (Protein): 74 Upper Protein Needs (Protein): 95 Fluid Factor (ml/kg): 30 Estimated Fluid Needs (ml): 2,025 Dietitian Reviewed in Medical Record: Current diet, Curent medications, Intake & Output, Labs, Medical history Oral Diet Intake Amount: Poor <50% Objective Comments: PMH: GERD, Grief, HTN, Hypothyroidism, Depression Assessment Assessment: Pt is at nutritional risk r/t recent unintentional wt loss. Variable po intake here 0-50% for meals. MDC for Calorie Count starting today 02/18 through 02/20 w /Nutrition Recs to follow 02/21. Send Ensure w/meals(= 250 kcal and 9g Protein per serving). Pt is "dry" per nursing and "pulled" his IV. Send Gatorade w/ meals. Recommendations: 1.MDC for Calorie Count starting today 02/18 through 02/20 w/Nutrition Recs to follow 02/21 2.Send Ensure w/meals 3.Send Gatorade w/meals Dietitian to Monitor: Lab values, Electrolytes, Supplement acceptance, Intake & Output, Weight change, PO Intake
[2018-02-19] MEDS: Venlafaxine XR 37.5 MG Capsule PO SCH (07:59)
--- NOTE | 2018-02-19 09:59 | P.PN ---
Subjective Interval history: Patient is seen lying in bed sleeping. He awakens easily. Does not appear to be in any distress. Remains very despondent. Nurse reports an uneventful night but says that he is still hearing voices and has little to no appetite. He tells me that his stomach is somewhat uncomfortable and that he has not had a bowel movement. Physical Exam Vital signs: Vital Signs 02/18/18 17:20 02/19/18 06:33 Temperature 98.2 F Pulse Rate 69 76 Respiratory Rate 17 16 Blood Pressure 137/65 133/76 Pulse Oximetry 94 L 96 Intake & Output 02/18/18 02/19/18 02/19/18 18:59 06:59 18:59 Intake Total 480 / 480 0 / 0 Balance 480 / 480 0 / 0 Weight 0 g Intake: Oral 480 / 480 0 / 0 Other: # Voids 1 Weight On Admission 0 g Narrative: GENERAL: Thin appearing well-developed male. SKIN: Warm and dry. HEAD: Atraumatic. Normocephalic. EYES: Pupils equal and round. No scleral icterus. No injection or drainage. ENT: No nasal bleeding or discharge. Mucous membranes pink and moist. NECK: Trachea midline. No JVD. CARDIOVASCULAR: Regular rate and rhythm. RESPIRATORY: No accessory muscle use. Clear to auscultation. Breath sounds equal bilaterally. GASTROINTESTINAL: Abdomen soft, non-tender, nondistended. MUSCULOSKELETAL: Extremities without clubbing, cyanosis, or edema. No obvious deformities. NEUROLOGICAL: Awake and alert. No obvious cranial nerve deficits. Motor grossly within normal limits. Normal speech. PSYCHIATRIC: Easily upset; despondent; hallucinating ; insight and judgment poor. Results - Labs CBC & Chem 7: 02/17/18 18:38 02/17/18 18:38 - Imaging Impressions Abdomen X-Ray 02/18/18 00:00 CONCLUSION: Benign abdomen. Assessment and Plan - Plan Summary of illness: Patient is a 67-year-old male with a past medical history of hypertension, GERD, hypothyroidism and tinnitus. Psychiatric history includes depression with no previous suicide attempt. He was admitted February 16, 2018 by Taylor pradhan due to suicide attempt. He told the officer responding to the call that he took "25 Zoloft". He has recently lost his girlfriend after an unexpected and has struggled with grief since then. He was previously seen in the emergency room January 2018 when family friends brought him saying that he was not acting like himself. They also report that he has lost a lot of weight over the past few months. At the time of that visit patient refused CT scan. He was found to be hypothyroid instructed to follow-up with his primary which he did not do. A&P: Grief and depression: -Being managed by psychiatry Hypothyroidism -Not currently taking any medication -TSH 8.8 on 01/31. Repeat panel 02/17/18: TSH -3.76L ; T4 & T3 normal. Very mild. Levothyroxine not indicated at this time. Recheck in 4-6 weeks. Weight loss -Poor intake/appetite -Depression versus? -Patient refusing additional evaluation. -Consult dietary to start Calorie count. Neutrophilia -Mild WBCs 12.5 on 02/17/18 - Pending repeat labs -Afebrile -Likely reactive due to stress; monitor Constipation -Patient encouraged to drink fluids. -Discussed with nurse; she will offer medications as per MAR DVT prophylaxis; patient is currently ambulatory Discussed with: Patient and nurse.
--- NOTE | 2018-02-19 13:16 | P.PNPSY ---
Subjective Remarks: Reviewed electronic medical record and discussed case with staff. Follow-up was conducted in the patient's room with nurse present. Patient found lying in the bed awake. He reports that he "isn't doing well". He reports that he "sometimes eats a little bit". He advises that he can't sleep because "somebody keeps yelling, 'Lv, get up'". Patient is extremely hard of hearing and seems to read lips during the interview. His mood is still depressed as is his affect. Mental Status Examination Appearance: Other (In [facility]) Consciousness: Alert Orientation: Person, Place, Date/Time Speech: Slow Fund of Knowledge: Inadequate Attention and Concentration: Inadequate Memory: Unremarkable Mood: Sad Affect: Sad Thought Process & Associations: Intact, Linear Thought Content: Appropriate Hallucination Type: None Delusion Type: None Suicidal Ideation: Yes Suicidal Plan: No Suicidal Intention: No Homicidal Ideation: No Homicidal Plan: No Homicidal Intention: No Insight: Poor Judgment: Poor Assessment and Plan - Plan Plan: Patient this time continues with depressed mood, continue with thoughts of not wanting to be alive. Patient agreed to start medications today and has signed consent for starting treatment. We will continue current treatment. We will continue recommendations as per prior medical team. Consult dietitian ordered due to poor p.o. intake. Abdominal x-ray ordered to assess for constipation. We will continue to monitor mood and behavior. We will continue the patient encouraged to be displayed groups and activities and to increase adequate nutritional intake. Discharge planning in progress. Justification for Continued Inpatient Stay: Moving this patient to a less restrictive environment would likely result in decompensation. Request Healthcare Surrogate/Guardian Advocate?: No
[2018-02-20] MEDS: Venlafaxine XR 37.5 MG Capsule PO SCH (10:21)
[2018-02-20] MEDS: Megestrol Acetate Liq 400 MG/10 ML UDC PO SCH (10:23)
[2018-02-20] MEDS: Sod Chloride 0.9% Inj 1,000 ML IV.CONT SCH ×2 (10:48→23:13)
--- NOTE | 2018-02-20 10:52 | P.PNPSY ---
Subjective Remarks: Patient seen for follow-up, chart reviewed. Discussion nursing staff reported the patient continues report feeling depressed, poor nutritional intake and noted to be paranoid. Patient was found lying hospital bed noted to be calm, cooperative, guarded. Patient states that someone had told him he was having a heart attack and noted to be hypervigilant during interview. Patient states that he had difficulty sleeping last evening and has had "somebody is broadcasting to me" which she describes as telling him to "get up". Discussion about starting antipsychotic, specifically olanzapine was reviewed with patient which she acknowledged. Patient continues with depressed mood continues to have thoughts of not wanting to be alive but denying any visual hallucinations or homicidal ideations. Review of Systems All other systems reviewed negative except as stated in HPI Mental Status Examination Appearance: Other (In hospital [facility]) Consciousness: Alert Orientation: Person, Place, Date/Time Speech: Slow Fund of Knowledge: Inadequate Attention and Concentration: Inadequate Memory: Unremarkable Mood: Sad Affect: Sad Thought Process & Associations: Intact, Linear Thought Content: Appropriate, Delusional Hallucination Type: Auditory Delusion Type: Paranoid Suicidal Ideation: Yes Suicidal Plan: No Suicidal Intention: No Homicidal Ideation: No Homicidal Plan: No Homicidal Intention: No Insight: Poor Judgment: Poor Assessment and Plan - Assessment (1) Major depressive disorder Code(s): F32.9 - Major depressive disorder, single episode, unspecified Status : Acute - Plan Plan: Patient this time continues with depressed mood, also noted to be paranoid and experiencing auditory hallucinations. We will start olanzapine 2.5 mg p.o. at bedtime for psychosis, continue rest of medications. Continue to monitor mood and behavior. Discharge planning in progress. Justification for Continued Inpatient Stay: At risk for further decompensation if at lower level of care Request Healthcare Surrogate/Guardian Advocate?: No (1) Major depressive disorder Qualifiers: Major depression recurrence: recurrent Active/Remission status: currently active Major depression episode severity: severe Psychotic features: without psychotic features Qualified Code(s): F33.2 - Major depressive disorder, recurrent severe without psychotic features
--- NOTE | 2018-02-20 12:49 | P.PN ---
Subjective Interval history: Patient is seen lying in bed. Continues to be confused and somewhat delusional. He does not appear to have eaten much of his breakfast and only drank about half of a protein shake. Complains of some nausea but no vomiting. Continues to refuse additional evaluation. Discussed with nursing and they report that he is very labile. Physical Exam Vital signs: Vital Signs 02/19/18 18:21 02/20/18 05:30 Temperature 97.8 F 97.4 F L Pulse Rate 76 83 Respiratory Rate 17 16 Blood Pressure 115/62 120/65 Pulse Oximetry 97 96 Intake & Output 02/19/18 02/20/18 02/20/18 18:59 06:59 18:59 Intake Total 30 / 30 240 / 240 240 / 240 Balance 30 / 30 240 / 240 240 / 240 Weight 67.5 kg Intake: Oral 30 / 30 240 / 240 240 / 240 Other: # Voids 1 Narrative: GENERAL: Thin appearing well-developed male. SKIN: Warm and dry. HEAD: Atraumatic. Normocephalic. EYES: Pupils equal and round. No scleral icterus. No injection or drainage. ENT: No nasal bleeding or discharge. Mucous membranes pink and moist. NECK: Trachea midline. No JVD. CARDIOVASCULAR: Regular rate and rhythm. RESPIRATORY: No accessory muscle use. Clear to auscultation. Breath sounds equal bilaterally. GASTROINTESTINAL: Abdomen soft, non-tender, nondistended. MUSCULOSKELETAL: Extremities without clubbing, cyanosis, or edema. No obvious deformities. NEUROLOGICAL: Awake and alert. No obvious cranial nerve deficits. Motor grossly within normal limits. Normal speech. PSYCHIATRIC: Labile; despondent; hallucinating ; insight and judgment poor. Results - Labs CBC & Chem 7: 02/17/18 18:38 02/17/18 18:38 Assessment and Plan - Plan Summary of illness: Patient is a 67-year-old male with a past medical history of hypertension, GERD, hypothyroidism and tinnitus. Psychiatric history includes depression with no previous suicide attempt. He was admitted February 16, 2018 by Taylor pradhan due to suicide attempt. He told the officer responding to the call that he took "25 Zoloft". He has recently lost his girlfriend after an unexpected and has struggled with grief since then. He was previously seen in the emergency room January 2018 when family friends brought him saying that he was not acting like himself. They also report that he has lost a lot of weight over the past few months. At the time of that visit patient refused CT scan. He was found to be hypothyroid instructed to follow-up with his primary which he did not do. A&P: Grief and depression: -Being managed by psychiatry Hypothyroidism -Not currently taking any medication -TSH 8.8 on 01/31. Repeat panel 02/17/18: TSH -3.76L ; T4 & T3 normal. Very mild. Levothyroxine not indicated at this time. Recheck in 4-6 weeks. Weight loss -Poor intake/appetite -Depression versus? -Patient refusing additional evaluation. -Consult dietary to start Calorie count. -Start IV fluids due to poor intake. Okay to stop patient is drinking on his. -Add Megace and Zofran Neutrophilia -Mild WBCs 12.5 on 02/17/18 - Pending repeat labs -Afebrile -Likely reactive due to stress; monitor Constipation -Patient encouraged to drink fluids. -Discussed with nurse; she will offer medications as per [facility] DVT prophylaxis; patient is currently ambulatory Discussed with: Patient and nurse.
[2018-02-20 20:28] LABS: Baso % (Auto) 0.4 % (0.0-2.0); Eos # (Auto) 0.1 th/mm3 (0.0-0.4); Hematocrit 37.9 % (39.0-51.0); Hemoglobin 13.2 gm/dL (13.0-17.0); Lymph # (Auto) 1.7 th/mm3 (1.0-4.8); Lymph % (Auto) 19.7 % (9.0-44.0); Mean Corpuscular HGB Conc 34.8 % (32.0-36.0); Mean Corpuscular Hemoglobin 32.6 pg (27.0-34.0); Mean Corpuscular Volume 93.5 fL (80.0-100.0); Mean Platelet Volume 10.2 fL (7.0-11.0); Mono % (Auto) 11.2 % (0.0-8.0); Neut # (Auto) 5.8 th/mm3 (1.8-7.7); Neut % (Auto) 67.7 % (16.0-70.0); Platelet Count 229 th/mm3 (150-450); Red Blood Count 4.05 mil/mm3 (4.50-5.90); Red Cell Distribution Width 13.5 % (11.6-17.2); White Blood Count 8.6 th/mm3 (4.0-11.0)
[2018-02-20 20:44] LABS: Calcium 8.5 mg/dL (8.5-10.1); Carbon Dioxide 29.1 meq/L (21.0-32.0); Potassium 3.6 meq/L (3.5-5.1)
[2018-02-20] MEDS ORDERED: OLANZapine 2.5 MG Tablet PO SCH (21:00)
[2018-02-21] MEDS: Venlafaxine XR 37.5 MG Capsule PO SCH (08:34)
[2018-02-21] MEDS ORDERED: Polyethylene Glycol 3350 17 GM Packet PO PRN (10:35)
--- NOTE | 2018-02-21 10:40 | P.PN ---
Subjective Interval history: Follow-up on patient with poor oral intake, hypothyroidism. Patient seen and examined. Patient remains delusional. Denies any acute medical complaints. He is asking why "people keep saying heart attack and get up". He denies any complaints of chest pain or shortness of breath. Denies any nausea, vomiting or abdominal pain. He does not know when his last bowel movement was. Discussed with nursing staff, continues to have poor oral intake, remains paranoid. Calorie count in progress. Physical Exam Vital signs: Vital Signs 02/20/18 17:27 02/21/18 05:00 Temperature 98.7 F 98.3 F Pulse Rate 79 79 Respiratory Rate 16 15 Blood Pressure 125/66 176/62 H Pulse Oximetry 96 97 Intake & Output 02/20/18 02/21/18 02/21/18 18:59 06:59 18:59 Intake Total 1920 / 1920 360 / 360 240 / 240 Output Total Balance 1920 / 1920 359 / 359 240 / 240 Weight 67.5 kg 68.2 kg Intake: Oral 1920 / 1920 360 / 360 240 / 240 Output: Urine Narrative: GENERAL: Thin appearing well-developed male, INAD. Awake and alert. Witnessed ambulating in the unit without any difficulties. SKIN: Warm and dry. HEENT: Atraumatic. Normocephalic. EOMI. No scleral icterus. No injection or drainage. No nasal bleeding or discharge. Airway patent. Mucous membranes pink and moist. NECK: Trachea midline. No JVD. CARDIOVASCULAR: Regular rate and rhythm. RESPIRATORY: No accessory muscle use. Clear to auscultation. Breath sounds equal bilaterally. GASTROINTESTINAL: Abdomen soft, non-tender, nondistended. MUSCULOSKELETAL: Extremities without clubbing, cyanosis, or edema. No obvious deformities. NEUROLOGICAL: Awake and alert. No obvious cranial nerve deficits. Motor grossly within normal limits. Normal speech. PSYCHIATRIC: Calm and cooperative with exam but appears guarded. Paranoid. Judgment and insight poor. Results - Labs CBC & Chem 7: 02/20/18 20:00 02/20/18 20:00 Laboratory Results - last 24 hr 02/20/18 02/20/18 20:00 20:00 WBC 8.6 RBC 4.05 L Hgb 13.2 Hct 37.9 L MCV 93.5 MCH 32.6 MCHC 34.8 RDW 13.5 Plt Count 229 MPV 10.2 Neut % (Auto) 67.7 Lymph % (Auto) 19.7 [place] % (Auto) 11.2 H Eos % (Auto) 1.0 Baso % (Auto) 0.4 Neut # (Auto) 5.8 Lymph # (Auto) 1.7 [place] # (Auto) 1.0 H Eos # (Auto) 0.1 Baso # (Auto) 0.0 WBC Differential . Differential Comment Auto diff final Sodium 142 Potassium 3.6 Chloride 104 Carbon Dioxide 29.1 Anion Gap 9 BUN 21 H Creatinine 1.01 Estimated GFR 73 L Random Glucose 112 H Calcium 8.5 Assessment and Plan - Assessment (1) Psychosis Code(s): F29 - Unspecified psychosis not due to a substance or known physiological condition Status: Acute (2) Protein calorie malnutrition Code(s): E46 - Unspecified protein-calorie malnutrition Status: Acute (3) Major depressive disorder Code(s): F32.9 - Major depressive disorder, single episode, unspecified Status : Acute (4) Hypothyroid Code(s): E03.9 - Hypothyroidism, unspecified Status: Acute - Plan 67-year-old male with a past medical history of hypertension, GERD, hypothyroidism and tinnitus. Psychiatric history includes depression with no previous suicide attempt. He was admitted February 16, 2018 by Taylor pradhan due to suicide attempt. He told the officer responding to the call that he took "25 Zoloft". He has recently lost his girlfriend after an unexpected and has struggled with grief since then. He was previously seen in the emergency room January 2018 when family friends brought him saying that he was not acting like himself. They also report that he has lost a lot of weight over the past few months. At the time of that visit patient refused CT scan. He was found to be hypothyroid instructed to follow-up with his primary which he did not do. Major depressive disorder Psychosis with paranoia and hallucinations Grief s/p unexpected of his girlfriend -Management per psychiatric team Hypothyroidism, not currently taking any medication TSH 8.8 on 01/31. Repeat panel 02/17/18: TSH 3.76, T4 & T3 normal. -Levothyroxine not indicated at this time. Recheck thyroid studies in 4-6 weeks. Weight loss, poor po intake Protein calorie malnutrition -Dietitian following, calorie count in progress. Await recommendations. Add Ensure and Gatorade with meals. -Started on Megace 02/20 -encourage fluid intake Leukocytosis, suspect reactive, resolved Patient is afebrile. Does not appear septic. -monitor as indicated Hypertensive, elevated BP measurement 176/62 -Patient usually normotensive. Suspect elevated BP secondary to agitation/ stress. Will add clonidine as needed with parameters. -Continue to monitor BP and adjust treatment accordingly Constipation -Patient encouraged to drink fluids -Begin scheduled stool softener twice daily. Miralax prn. -monitor for BM DVT prophylaxis; patient is currently ambulatory Discussed Condition With: patient, nursing staff, Dr. Huertas (3) Major depressive disorder Qualifiers: Major depression recurrence: recurrent Active/Remission status: currently active Major depression episode severity: severe Psychotic features: without psychotic features Qualified Code(s): F33.2 - Major depressive disorder, recurrent severe without psychotic features
[2018-02-21] MEDS: Megestrol Acetate Liq 400 MG/10 ML UDC PO SCH (11:25)
--- NOTE | 2018-02-21 12:46 | P.DIET ---
Nutritional Evaluation Type of nutrition evaluation: follow-up Nutrition consult regarding: Diet Evaluation Nutrition screening: Weight Loss > 10 lbs, MDC Screening comments: Poor PO Intake; Calorie Counting Subjective Barriers to Nutrition: Refuses to eat at times Subjective Comments: Pt receiving Nursing care when Calorie Count Envelope collected. Brought forth from previous note: Pt reported to Nursing that he has lost 45-lb recently. Pt's Ht estimated as 71-inches(180.34cm)-used for assessment here Objective - Diagnosis Major Depressive DO, Recurrent - Indications of Malnutrition Characteristics: Weight loss - Objective % IBW: 86 Energy Needs - Lower Range (kCal/kg): 30 Energy Needs - Upper Range (kCal/kg): 35 Lower Limit kCal/kg (kCals): 2,025 Upper Limit kCal/kg (kCals): 2,363 Lower Limit Protein Factor (Grams per Kg): 1.1 Upper Limit Protein Factor (Grams per Kg): 1.4 Lower Protein Needs (Protein): 74 Upper Protein Needs (Protein): 95 Fluid Factor (ml/kg): 30 Estimated Fluid Needs (ml): 2,025 Dietitian Reviewed in Medical Record: Current diet, Curent medications, Intake & Output, Labs, Medical history Oral Diet Intake Amount: Poor <50% Objective Comments: PMH: GERD, Grief, HTN, Hypothyroidism, Depression Meds Include: Megace started 02/20, Zyprexa, Effexor XR Feeding - Current PO Supplement Current Supplement: Ensure Original Current Supplement Flavor: Vanilla Current Frequency of Supplement: Three times a day Current kCals Provided by Supplement: 250 Current Protein Provided by Supplement: 9 - kCal Count Day 1 kCal Intake: 375 Day 1 Protein Intake: 27 Day 2 kCal Intake: 465 Day 2 Protein Intake: 20 Day 3 kCal Intake: 813 Day 3 Protein Intake: 28 Assessment Assessment: Pt is at nutritional risk r/t recent unintentional wt loss and poor po intake. MDC for Calorie Count 02/18 through 02/20 w/INADEQUATE PO intake, less than 50% of assessed needs. Noted pt started on Megace 02/20; however, pt refused the Megace today. Rec initiating TF'ing, if po intake does not improve in the next 48-hours. For TF'ing, Rec Jevity 1.5 @ 30ml/hr, increase 10ml Q 4-hr, as tolerated, to goal rate 60ml/hr to offer 2160 kcal, 91.9g Protein and 1094ml free water. Free Water per MD. Replace Ensure w/Ensure Enlive tid(= 350 kcal and 20g Protein per serving). Continue Gatorade w/meals to assist w/fluid needs. Dietitian following. Recommendations: 1.MDC for Calorie Count 02/18 through 02/20 w/INADEQUATE PO intake 2.Noted pt started on Megace 02/20; however, pt refused the Megace today 3.Rec initiating TF'ing, if po intake does not improve in the next 48-hours 4.For TF'ing, Rec Jevity 1.5 @ 30ml/hr, increase 10ml Q 4-hr, as tolerated, to goal rate 60ml/hr 5.Free Water per MD 6.Replace Ensure w/Ensure Enlive tid 7.Continue Gatorade w/meals to assist w/fluid needs 8.Dietitian following Dietitian to Monitor: Lab values, Electrolytes, Supplement acceptance, Intake & Output, Weight change, PO Intake
--- NOTE | 2018-02-21 17:44 | P.PNPSY ---
Subjective Remarks: Patient seen for follow-up, chart reviewed. Discussion with nursing staff reported that the patient noted with continued paranoia, but less disorganization. Patient was found to be calm and cooperative with interview, patient noted with continued paranoia, describing auditory hallucinations which keep him up at night. Patient continues with helplessness and hopelessness, depressed mood and noted to be somewhat disorganized during interview. Review of Systems All other systems reviewed negative except as stated in HPI Mental Status Examination Appearance: Other (In [facility]) Consciousness: Alert Orientation: Person, Place, Date/Time Speech: Slow Fund of Knowledge: Inadequate Attention and Concentration: Inadequate Memory: Unremarkable Mood: Sad Affect: Anxious Thought Process & Associations: Disorganized (At times) Thought Content: Appropriate, Delusional Hallucination Type: Auditory Delusion Type: Paranoid Suicidal Ideation: Yes Suicidal Plan: No Suicidal Intention: No Homicidal Ideation: No Homicidal Plan: No Homicidal Intention: No Insight: Poor Judgment: Poor Assessment and Plan - Assessment (1) Major depressive disorder Code(s): F32.9 - Major depressive disorder, single episode, unspecified Status : Acute - Plan Plan: Patient this time continues with paranoia, endorsing auditory hallucinations, disorganized at times. Patient continues with poor nutritional intake. Continue to encourage patient to maintain adequate nutritional intake. We will increase olanzapine to 5 mg p.o. at bedtime for psychosis, continue rest of medications. Continue to monitor mood and behavior. Discharge planning in progress. Justification for Continued Inpatient Stay: At risk for further decompensation if at lower level of care Request Healthcare Surrogate/Guardian Advocate?: No (1) Major depressive disorder Qualifiers: Major depression recurrence: recurrent Active/Remission status: currently active Major depression episode severity: severe Psychotic features: without psychotic features Qualified Code(s): F33.2 - Major depressive disorder, recurrent severe without psychotic features
[2018-02-21] MEDS: Senna/Docusate Sodium 8.6/50 MG Tablet PO SCH (21:17)
[2018-02-22] MEDS ORDERED: Haloperidol Inj 5 MG/ML Ampul ONE ×2 (09:07→09:14)
[2018-02-22] MEDS: Megestrol Acetate Liq 400 MG/10 ML UDC PO SCH (09:27)
[2018-02-22] MEDS: Venlafaxine XR 37.5 MG Capsule PO SCH (09:27)
[2018-02-22] MEDS: Senna/Docusate Sodium 8.6/50 MG Tablet PO SCH ×3 (09:27→22:05)
--- NOTE | 2018-02-22 09:53 | P.PN ---
Subjective Interval history: Follow-up on patient with poor oral intake, hypothyroidism. Patient is seen this morning being his head on bathroom door, immediately stopped by nurse. Patient is aggressive code agustin called able to get patient safely back in bed. Nurse tried to comfort patient and tell him that he is safe however patient repeatedly states "I am not, I am not". Patient continues to have poor p.o. intake. Physical Exam Vital signs: Vital Signs 02/21/18 18:27 02/22/18 06:00 Temperature 37.1 C 36.8 C Pulse Rate 70 76 Respiratory Rate 15 17 Blood Pressure 113/67 133/69 Pulse Oximetry 98 Intake & Output 02/21/18 02/22/18 02/22/18 18:59 06:59 18:59 Intake Total 960 / 960 240 / 240 Balance 960 / 960 240 / 240 Intake: Oral 960 / 960 240 / 240 Other: # Voids 1 Narrative: GENERAL: Thin appearing well-developed male, aggressive this morning. SKIN: Warm and dry. HEENT: Atraumatic. Normocephalic. EOMI. No scleral icterus. No injection or drainage. No nasal bleeding or discharge. Airway patent. Mucous membranes pink and moist. NECK: Trachea midline. No JVD. CARDIOVASCULAR: Deferred RESPIRATORY: No accessory muscle use. GASTROINTESTINAL: Deferred MUSCULOSKELETAL: Extremities without clubbing, cyanosis, or edema. No obvious deformities. NEUROLOGICAL: Awake and alert. Motor grossly within normal limits. Normal speech. PSYCHIATRIC: Physically aggressive, uncooperative. Judgment and insight poor. Results - Labs CBC & Chem 7: 02/20/18 20:00 02/20/18 20:00 Assessment and Plan - Assessment (1) Psychosis Code(s): F29 - Unspecified psychosis not due to a substance or known physiological condition Status: Acute (2) Protein calorie malnutrition Code(s): E46 - Unspecified protein-calorie malnutrition Status: Acute (3) Major depressive disorder Code(s): F32.9 - Major depressive disorder, single episode, unspecified Status : Acute (4) Hypothyroid Code(s): E03.9 - Hypothyroidism, unspecified Status: Acute - Plan 67-year-old male with a past medical history of hypertension, GERD, hypothyroidism and tinnitus. Psychiatric history includes depression with no previous suicide attempt. He was admitted February 16, 2018 by [facility] due to suicide attempt. He told the officer responding to the call that he took "25 Zoloft". He has recently lost his girlfriend after an unexpected and has struggled with grief since then. He was previously seen in the emergency room January 2018 when family friends brought him saying that he was not acting like himself. They also report that he has lost a lot of weight over the past few months. At the time of that visit patient refused CT scan. He was found to be hypothyroid instructed to follow-up with his primary which he did not do. Major depressive disorder Psychosis with paranoia and hallucinations Grief s/p unexpected of his girlfriend -Management per psychiatric team -Aggressive behavior requiring ETO's, CT of head with chronic mild deep white matter changes bilaterally, no acute findings or fracture. Hypothyroidism, not currently taking any medication TSH 8.8 on 01/31. Repeat panel 02/17/18: TSH 3.76, T4 & T3 normal. -Levothyroxine not indicated at this time. Recheck thyroid studies in 4-6 weeks. Weight loss, poor po intake Protein calorie malnutrition -Dietitian following, patient with inadequate calorie intake from 02/18-02/20. Recommendations for tube feedings, Jevity 1.5 at 30 mL's per hour increase by 10 mL's every 4 hours as tolerated to reach a goal rate of 60 mL's per hour -Started on Megace 02/20 however refusing -encourage fluid intake, will need to discuss with psychiatry for TF placement Leukocytosis, suspect reactive, resolved Patient is afebrile. Does not appear septic. -monitor as indicated Hypertensive, elevated BP measurement 176/62 -Patient usually normotensive. Suspect elevated BP secondary to agitation/ stress. Will add clonidine as needed with parameters. -BP has been stable. Constipation -Patient encouraged to drink fluids -Begin scheduled stool softener twice daily. Miralax prn. -monitor for BM DVT prophylaxis; patient is currently ambulatory Discussed Condition With: Nursing staff (3) Major depressive disorder Qualifiers: Major depression recurrence: recurrent Active/Remission status: currently active Major depression episode severity: severe Psychotic features: without psychotic features Qualified Code(s): F33.2 - Major depressive disorder, recurrent severe without psychotic features
--- NOTE | 2018-02-22 15:38 | P.PNPSY ---
Subjective Remarks: Patient seen for follow-up, chart reviewed. Discussion nursing staff reported the patient this morning had become agitated, and began to bang his head against the wall with no apparent, no injury and had to be redirected back to his bed and was provided with ETO of Haldol 5 mg IM/Lorazepam 2 mg IM. Patient later was found lying hospital bed asleep and unable to engage in interview due to sedation. Review of Systems All other systems reviewed negative except as stated in HPI Mental Status Examination Appearance: Other (In [facility]) Consciousness: Alert Orientation: Person, Place, Date/Time Speech: Slow Fund of Knowledge: Inadequate Attention and Concentration: Inadequate Memory: Unremarkable Mood: Sad Affect: Anxious Thought Process & Associations: Disorganized (At times) Thought Content: Appropriate, Delusional Hallucination Type: Auditory Delusion Type: Paranoid Suicidal Ideation: Yes Suicidal Plan: No Suicidal Intention: No Homicidal Ideation: No Homicidal Plan: No Homicidal Intention: No Insight: Poor Judgment: Poor Assessment and Plan - Assessment (1) Major depressive disorder Code(s): F32.9 - Major depressive disorder, single episode, unspecified Status : Acute - Plan Plan: Patient this time continues with paranoia, disorganized at times and with auditory hallucinations. Olanzapine recently increased to 5 mg p.o. at bedtime we will continue this dose for now. Patient receive ETO this morning due to agitation and attempted to bang his head against a wall. We will order head CT to rule out any injury as well as any organic cause to his current symptomatology. We will continue rest of medications. We will continue to monitor mood and behavior. Patient continues with poor nutritional intake, dietitian consult appreciated, hospitalist input appreciated. Discharge planning in progress. Justification for Continued Inpatient Stay: At risk for further decompensation if at lower level of care Request Healthcare Surrogate/Guardian Advocate?: No (1) Major depressive disorder Qualifiers: Major depression recurrence: recurrent Active/Remission status: currently active Major depression episode severity: severe Psychotic features: without psychotic features Qualified Code(s): F33.2 - Major depressive disorder, recurrent severe without psychotic features
--- NOTE | 2018-02-22 17:53 | CT ---
EXAM DATE: 02/22/2018 5:48 PM EDT AGE/SEX: 67 years / Male INDICATIONS: Trauma; patient was banging his head against the wall. Psychosis CLINICAL DATA: This is the patient's initial encounter. Patient reports that signs and symptoms have been present for 1 day and indicates a pain score of Nonresponsive. MEDICAL/SURGICAL HISTORY: Hypertension. Gastroesophageal reflux disease. None. RADIATION DOSE: 56.35 CTDI (mGy) COMPARISON: No prior exams available for comparison. TECHNIQUE: CT of the head without contrast. Using automated exposure control and adjustment of the mA and/or kV according to patient size, radiation dose was kept as low as reasonably achievable to ob tain optimal diagnostic quality images. DICOM format image data is available electronically for revi ew and comparison. FINDINGS: Cerebrum: The ventricles are normal for age. Mild white matter changes in the deep white matter tra cts bilaterally. No evidence of midline shift, mass lesion, hemorrhage or acute infarction. No extra axial fluid collections are seen. Posterior Fossa: The cerebellum and brainstem are intact. The 4th ventricle is midline. The cerebe llopontine angle is unremarkable. Extracranial: The visualized portion of the orbits is intact. Skull: The calvaria is intact. No evidence of skull fracture. CONCLUSION: 1. Chronic changes mild deep white matter changes bilaterally. 2. Nothing acute. No fracture. Electronically signed by: Javon Corea MD 02/22/2018 5:52 PM EDT
[2018-02-22] MEDS: OLANZapine 2.5 MG Tablet PO SCH ×2 (22:04→22:05)
--- NOTE | 2018-02-23 08:29 | P.PN ---
Subjective Interval history: Follow-up visit for poor p.o. intake and HTN. Patient is seen and examined resting comfortably in bed. Looks as if patient had cereal and about 50% of his breakfast this morning. Patient makes eye contact, and is able to follow simple commands, however is nonverbal with me. When I ask if I can examine him patient shakes his head "no". Nurse reports patient slept all night, no acute medical concerns. Physical Exam Vital signs: Vital Signs 02/23/18 05:45 Temperature 36.4 C L Pulse Rate 74 Respiratory Rate 16 Blood Pressure 90/53 L Pulse Oximetry 97 Intake & Output 02/22/18 02/23/18 02/23/18 18:59 06:59 18:59 Intake Total 0 / 0 Output Total Balance 25 - Intake: Oral 25 25 0 / 0 Output: Urine Narrative: GENERAL: Thin appearing well-developed male, aggressive this morning. SKIN: Warm and dry. HEENT: Atraumatic. Normocephalic. EOMI. No scleral icterus. No injection or drainage. No nasal bleeding or discharge. Airway patent. Mucous membranes pink and moist. NECK: Trachea midline. No JVD. CARDIOVASCULAR: Regular rate and rhythm. RESPIRATORY: No accessory muscle use. Clear, no rhonchi or crackles. GASTROINTESTINAL: Flat, nontender, normoactive bowel sounds. MUSCULOSKELETAL: Extremities without clubbing, cyanosis, or edema. No obvious deformities. NEUROLOGICAL: Awake and alert. Motor grossly within normal limits, follow simple commands. Nonverbal with me. PSYCHIATRIC: Appears calm and cooperative this morning. Results - Labs CBC & Chem 7: 02/20/18 20:00 02/20/18 20:00 - Imaging Impressions Head CT 02/22/18 00:00 CONCLUSION: 1. Chronic changes mild deep white matter changes bilaterally. 2. Nothing acute. No fracture. Assessment and Plan - Assessment (1) Psychosis Code(s): F29 - Unspecified psychosis not due to a substance or known physiological condition Status: Acute (2) Protein calorie malnutrition Code(s): E46 - Unspecified protein-calorie malnutrition Status: Acute (3) Major depressive disorder Code(s): F32.9 - Major depressive disorder, single episode, unspecified Status : Acute (4) Hypothyroid Code(s): E03.9 - Hypothyroidism, unspecified Status: Acute - Plan 67-year-old male with a past medical history of hypertension, GERD, hypothyroidism and tinnitus. Psychiatric history includes depression with no previous suicide attempt. He was admitted February 16, 2018 by Taylor pradhan due to suicide attempt. He told the officer responding to the call that he took "25 Zoloft". He has recently lost his girlfriend after an unexpected and has struggled with grief since then. He was previously seen in the emergency room January 2018 when family friends brought him saying that he was not acting like himself. They also report that he has lost a lot of weight over the past few months. At the time of that visit patient refused CT scan. He was found to be hypothyroid instructed to follow-up with his primary which he did not do. Major depressive disorder Psychosis with paranoia and hallucinations Grief s/p unexpected of his girlfriend -Management per psychiatric team - 02/22 Aggressive behavior requiring ETO's, CT of head with chronic mild deep white matter changes bilaterally, no acute findings or fracture. - 02/23, more calm and cooperative today. Hypothyroidism, not currently taking any medication TSH 8.8 on 01/31. Repeat panel 02/17/18: TSH 3.76, T4 & T3 normal. -Levothyroxine not indicated at this time. Recheck thyroid studies in 4-6 weeks. Weight loss, poor po intake Protein calorie malnutrition -Dietitian following, patient with inadequate calorie intake from 02/18-02/20. Recommendations for tube feedings, Jevity 1.5 at 30 mL's per hour increase by 10 mL's every 4 hours as tolerated to reach a goal rate of 60 mL's per hour -Started on Megace 02/20 however refusing -encourage p.o. intake, patient did have breakfast this morning. Leukocytosis, suspect reactive, resolved Patient is afebrile. Does not appear septic. -monitor as indicated Hypertensive, elevated BP measurement 176/62 -Patient usually normotensive. Suspect elevated BP secondary to agitation/ stress. Will add clonidine as needed with parameters. -BP has been stable, slightly low this a.m, continue to monitor. Constipation -Patient encouraged to drink fluids -Begin scheduled stool softener twice daily. Miralax prn. -monitor for BM DVT prophylaxis; patient is currently ambulatory Discussed Condition With: Nursing staff. (3) Major depressive disorder Qualifiers: Major depression recurrence: recurrent Active/Remission status: currently active Major depression episode severity: severe Psychotic features: without psychotic features Qualified Code(s): F33.2 - Major depressive disorder, recurrent severe without psychotic features
[2018-02-23] MEDS: Venlafaxine XR 37.5 MG Capsule PO SCH (10:49)
[2018-02-23] MEDS: Megestrol Acetate Liq 400 MG/10 ML UDC PO SCH (10:49)
[2018-02-23] MEDS: Senna/Docusate Sodium 8.6/50 MG Tablet PO SCH (10:50)
[2018-02-23] MEDS ORDERED: Sod Chloride 0.9% Inj 1,000 ML IV.SIG ONE (13:07)
[2018-02-23] MEDS ORDERED: Sod Chloride 0.9% Inj 1,000 ML IV.CONT SCH (16:15)
--- NOTE | 2018-02-23 16:33 | P.PNPSY ---
Subjective Remarks: Patient seen for follow-up, chart reviewed. Discussion nursing staff reported the patient seemed more calm this morning, continues to be perseverative on voices telling him that he has a heart attack. Patient was found lying hospital bed stating that he is feeling confused and that voices telling him he has a heart attack. Patient does not recall events yesterday which he had required ETO. Patient continues report feeling depressed, continues with feelings of helplessness and hopelessness, and continues with paranoid ideations. Patient this time has had continue paranoid delusions as well as auditory hallucinations and does not have capacity at this time to consent for treatment. We will request healthcare surrogate and guardian advocate to [employer] tomorrow. Review of Systems All other systems reviewed negative except as stated in HPI Mental Status Examination Appearance: Other (In [facility]) Consciousness: Alert Orientation: Person, Place, Date/Time Speech: Slow Language: Adequate Fund of Knowledge: Inadequate Attention and Concentration: Inadequate Memory: Unremarkable Mood: Sad Affect: Anxious Thought Process & Associations: Disorganized (At times) Thought Content: Appropriate, Hallucinations, Preoccupations, Delusional Hallucination Type: Auditory Delusion Type: Paranoid Suicidal Ideation: Yes Suicidal Plan: No Suicidal Intention: No Homicidal Ideation: No Homicidal Plan: No Homicidal Intention: No Insight: Poor Judgment: Poor Assessment and Plan - Assessment (1) Major depressive disorder Code(s): F32.9 - Major depressive disorder, single episode, unspecified Status : Acute - Plan Plan: Patient this time continues with depressed mood, continue with helplessness and hopelessness and with paranoid ideations and auditory hallucinations. Patient will require antipsychotic to help stabilize his mood as well as stress perceptual disturbances but at this time does not have capacity to consent for treatment. We will request healthcare surrogate and guardian advocate through [employer] tomorrow to begin olanzapine. We will continue current treatment. Recent head CT with no acute pathological findings. Continue to monitor mood and behavior. Patient to continue recommendations as per prior medical team. Continue to encourage patient to maintain adequate nutritional intake. Discharge planning a progress. Justification for Continued Inpatient Stay: At risk of further decompensation a lower level of care. Request Healthcare Surrogate/Guardian Advocate?: No (1) Major depressive disorder Qualifiers: Major depression recurrence: recurrent Active/Remission status: currently active Major depression episode severity: severe Psychotic features: without psychotic features Qualified Code(s): F33.2 - Major depressive disorder, recurrent severe without psychotic features
[2018-02-24] MEDS: Senna/Docusate Sodium 8.6/50 MG Tablet PO SCH ×2 (01:08→21:15)
[2018-02-24] MEDS: OLANZapine 2.5 MG Tablet PO SCH (01:08)
--- NOTE | 2018-02-24 08:14 | P.PN ---
Subjective Interval history: Follow-up visit for poor p.o. intake and hypotension. Patient is seen awake and alert ambulating in the [place], appears calm. He is oriented to self and place. He does complain of dizziness, does not report this is exacerbated with standing or sitting. He reports he ate breakfast and is drinking water, nurse reports this to be true. Patient denies any nausea, vomiting, shortness of breath, cough or chest pain. Physical Exam Vital signs: Vital Signs 02/23/18 12:50 02/23/18 12:55 02/23/18 15:02 Temperature 36.7 C Pulse Rate 83 68 Respiratory Rate 14 16 Blood Pressure 82/43 L 82/40 L 99/58 L Pulse Oximetry 93 L 95 02/23/18 18:09 02/24/18 05:48 Temperature 36.8 C 36.8 C Pulse Rate 75 64 Respiratory Rate 16 17 Blood Pressure 104/58 L 108/65 Pulse Oximetry 96 96 Intake & Output 02/23/18 02/24/18 02/24/18 18:59 06:59 18:59 Intake Total 1080 / 1080 240 / 240 Balance 1080 / 1080 240 / 240 Intake: Oral 1080 / 1080 240 / 240 Other: # Voids 2 # Bowel Movements 0 Narrative: GENERAL: Thin appearing well-developed male, awake, alert, ambulating. SKIN: Warm and dry. HEENT: Atraumatic. Normocephalic. EOMI. No scleral icterus. No injection or drainage. No nasal bleeding or discharge. Airway patent. Mucous membranes pink and moist. NECK: Trachea midline. No JVD. CARDIOVASCULAR: Regular rate and rhythm. RESPIRATORY: No accessory muscle use. Clear, no rhonchi or crackles. GASTROINTESTINAL: Flat, nontender, normoactive bowel sounds. MUSCULOSKELETAL: Extremities without clubbing, cyanosis, or edema. No obvious deformities. NEUROLOGICAL: Awake and alert, oriented to self and place. Motor grossly within normal limits, follow simple commands. Speech is clear, no facial droop. PSYCHIATRIC: Appears calm and cooperative this morning. Results - Labs CBC & Chem 7: 02/20/18 20:00 02/20/18 20:00 Assessment and Plan - Assessment (1) Psychosis Code(s): F29 - Unspecified psychosis not due to a substance or known physiological condition Status: Acute (2) Protein calorie malnutrition Code(s): E46 - Unspecified protein-calorie malnutrition Status: Acute (3) Major depressive disorder Code(s): F32.9 - Major depressive disorder, single episode, unspecified Status : Acute (4) Hypothyroid Code(s): E03.9 - Hypothyroidism, unspecified Status: Acute - Plan 67-year-old male with a past medical history of hypertension, GERD, hypothyroidism and tinnitus. Psychiatric history includes depression with no previous suicide attempt. He was admitted February 16, 2018 by Taylor pradhan due to suicide attempt. He told the officer responding to the call that he took "25 Zoloft". He has recently lost his girlfriend after an unexpected and has struggled with grief since then. He was previously seen in the emergency room January 2018 when family friends brought him saying that he was not acting like himself. They also report that he has lost a lot of weight over the past few months. At the time of that visit patient refused CT scan. He was found to be hypothyroid instructed to follow-up with his primary which he did not do. Major depressive disorder Psychosis with paranoia and hallucinations Grief s/p unexpected of his girlfriend -Management per psychiatric team -Patient has been calm and cooperative Hypothyroidism, not currently taking any medication TSH 8.8 on 01/31. Repeat panel 02/17/18: TSH 3.76, T4 & T3 normal. -Levothyroxine not indicated at this time. Recheck thyroid studies in 4-6 weeks. Weight loss, poor po intake Protein calorie malnutrition -Dietitian following, patient with inadequate calorie intake from 02/18-02/20. Recommendations for tube feedings, Jevity 1.5 at 30 mL's per hour increase by 10 mL's every 4 hours as tolerated to reach a goal rate of 60 mL's per hour -Started on Megace 02/20, cooperative with medication today -encourage p.o. intake Leukocytosis, suspect reactive, resolved Patient is afebrile. Does not appear septic. -monitor as indicated Hypertensive, elevated BP measurement 176/62 Hypotensive episode 02/23 with BP 82/43, symptomatic -Patient usually normotensive. Suspect elevated BP secondary to agitation/ stress. Will add clonidine as needed with parameters. -s/p 1L NS IV bolus, BP improved, continue IV fluids. Hypotension most likely secondary to poor p.o. intake -Continues to complain of dizziness, check orthostatic BPs Constipation -Patient encouraged to drink fluids -Begin scheduled stool softener twice daily. Miralax prn. -monitor for BM DVT prophylaxis; patient is currently ambulatory Discussed Condition With: Patient and nursing staff. (3) Major depressive disorder Qualifiers: Major depression recurrence: recurrent Active/Remission status: currently active Major depression episode severity: severe Psychotic features: without psychotic features Qualified Code(s): F33.2 - Major depressive disorder, recurrent severe without psychotic features
[2018-02-24 14:13] LABS: Carbon Dioxide 25.4 meq/L (21.0-32.0); Potassium 3.8 meq/L (3.5-5.1)
--- NOTE | 2018-02-24 16:19 | P.PNPSY ---
Subjective Remarks: Patient seen for follow, chart reviewed. Discussion nursing staff reported the patient continued to be paranoid, refused medications of lab work this morning, continue with IV fluids. Patient was found lying hospital bed noted to be, cooperative. Patient noted to be paranoid, noted psychomotor retardation stating "I do not know how I can get home. Patient continues with auditory hallucinations of voices telling him "heart attack" and continues report feeling depressed and hopeless along with thoughts of not wanting to be alive. Review of Systems All other systems reviewed negative except as stated in HPI Mental Status Examination Appearance: Other (In [facility]) Consciousness: Alert Orientation: Person, Place, Date/Time Speech: Slow Language: Adequate Fund of Knowledge: Inadequate Attention and Concentration: Inadequate Memory: Unremarkable Mood: Sad Affect: Anxious Thought Process & Associations: Disorganized (At times) Thought Content: Appropriate, Hallucinations, Preoccupations, Delusional Hallucination Type: Auditory Delusion Type: Paranoid Suicidal Ideation: Yes Suicidal Plan: No Suicidal Intention: No Homicidal Ideation: No Homicidal Plan: No Homicidal Intention: No Insight: Poor Judgment: Poor Assessment and Plan - Assessment (1) Major depressive disorder Code(s): F32.9 - Major depressive disorder, single episode, unspecified Status : Acute - Plan Plan: Patient this time continues feeling depressed, helpless and hopeless along with continued suicidal ideations and continues with paranoia and auditory. Patient retained to mental health court and an [facility] was assigned as patient's healthcare surrogate and guardian advocate which olanzapine 2.5 mg p.o. twice daily with upper titration as needed for psychosis was reviewed with healthcare surrogate and provided consent for the same. We will discontinue Effexor as patient had increase the blood pressure when he took this medication. Will defer from restarting antidepressant for now will continue with olanzapine to treat psychosis. Continue to monitor with behavior. This was planning a progress. Justification for Continued Inpatient Stay: At risk of further composition at lower level of care. Request Healthcare Surrogate/Guardian Advocate?: No (1) Major depressive disorder Qualifiers: Major depression recurrence: recurrent Active/Remission status: currently active Major depression episode severity: severe Psychotic features: without psychotic features Qualified Code(s): F33.2 - Major depressive disorder, recurrent severe without psychotic features
--- NOTE | 2018-02-25 09:00 | P.PN ---
Subjective Interval history: Follow-up for poor p.o intake and hypotension. Patient is seen ambulating in the [facility], asking for Dr. Zee. He is examined in his room resting in bed comfortably and in no acute distress. He does continue to complain of some dizziness, orthostatic BP's are + as well. Patient's I&O has also been on the low side. He denies any nausea, vomiting, diarrhea, fevers, chills, SOB or cough. Nurse reports patient has been more clear mentally with no other acute medical complaints. Physical Exam Vital signs: Vital Signs 02/24/18 18:39 02/24/18 18:42 02/25/18 05:43 Temperature 36.7 C Pulse Rate 66 67 Respiratory Rate 16 17 Blood Pressure 123/58 L 106/57 L 107/55 L Pulse Oximetry 96 98 Intake & Output 02/24/18 02/25/18 02/25/18 18:59 06:59 18:59 Intake Total 1080 / 1080 Balance 1080 / 1080 Intake: Oral 1080 / 1080 Narrative: GENERAL: Thin appearing well-developed male, awake, alert, ambulating. SKIN: Warm and dry. HEENT: Atraumatic. Normocephalic. EOMI. No scleral icterus. No injection or drainage. No nasal bleeding or discharge. Airway patent. Mucous membranes pink and moist. NECK: Trachea midline. No JVD. CARDIOVASCULAR: Regular rate and rhythm. RESPIRATORY: No accessory muscle use. Clear, no rhonchi or crackles. GASTROINTESTINAL: Flat, nontender, normoactive bowel sounds. MUSCULOSKELETAL: Extremities without clubbing, cyanosis, or edema. No obvious deformities. NEUROLOGICAL: Awake and alert, oriented to self and place. Motor grossly within normal limits, follow simple commands. Speech is clear, no facial droop. PSYCHIATRIC: Appears calm and cooperative this morning. Results - Labs CBC & Chem 7: 02/20/18 20:00 02/24/18 13:26 Laboratory Results - last 24 hr 02/24/18 13:26 Sodium 144 Potassium 3.8 Chloride 109 H Carbon Dioxide 25.4 Anion Gap 10 BUN 19 H Creatinine 0.95 Estimated GFR 79 L Random Glucose 105 Calcium 8.0 L Assessment and Plan - Assessment (1) Psychosis Code(s): F29 - Unspecified psychosis not due to a substance or known physiological condition Status: Acute (2) Protein calorie malnutrition Code(s): E46 - Unspecified protein-calorie malnutrition Status: Acute (3) Major depressive disorder Code(s): F32.9 - Major depressive disorder, single episode, unspecified Status : Acute (4) Hypothyroid Code(s): E03.9 - Hypothyroidism, unspecified Status: Acute - Plan 67-year-old male with a past medical history of hypertension, GERD, hypothyroidism and tinnitus. Psychiatric history includes depression with no previous suicide attempt. He was admitted February 16, 2018 by Taylor pradhan due to suicide attempt. He told the officer responding to the call that he took "25 Zoloft". He has recently lost his girlfriend after an unexpected and has struggled with grief since then. He was previously seen in the emergency room January 2018 when family friends brought him saying that he was not acting like himself. They also report that he has lost a lot of weight over the past few months. At the time of that visit patient refused CT scan. He was found to be hypothyroid instructed to follow-up with his primary which he did not do. Major depressive disorder Psychosis with paranoia and hallucinations Grief s/p unexpected of his girlfriend -Management per psychiatric team -Patient has been calm and cooperative Hypothyroidism, not currently taking any medication TSH 8.8 on 01/31. Repeat panel 02/17/18: TSH 3.76, T4 & T3 normal. -Levothyroxine not indicated at this time. Recheck thyroid studies in 4-6 weeks. Weight loss, poor po intake Protein calorie malnutrition -Dietitian following, patient with inadequate calorie intake from 02/18-02/20. Recommendations for tube feedings, Jevity 1.5 at 30 mL's per hour increase by 10 mL's every 4 hours as tolerated to reach a goal rate of 60 mL's per hour -Started on Megace 02/20, not cooperative with medication today -encourage p.o. intake, poor intake noted yesterday, will restart IVF Leukocytosis, suspect reactive, resolved Patient is afebrile. Does not appear septic. -monitor as indicated Hypertensive, elevated BP measurement 176/62 Hypotensive episode 02/23 with BP 82/43, symptomatic +orthostatic BP's likely secondary to poor p.o intake -Patient usually normotensive. Suspect elevated BP secondary to agitation/ stress. Will add clonidine as needed with parameters. -s/p 1L NS IV bolus, BP improved, continue IV fluids. Hypotension most likely secondary to poor p.o. intake -Continues to complain of dizziness, + orthostatic, poor intake charted yesterday - Restart IVF Constipation -Patient encouraged to drink fluids -Begin scheduled stool softener twice daily. Miralax prn. -+BM reported by patient, but reports straining, discussed with patient and nurse regarding stool softener, he has been refusing this. DVT prophylaxis; patient is currently ambulatory Discharge Planning: Patient and nurse. (3) Major depressive disorder Qualifiers: Major depression recurrence: recurrent Active/Remission status: currently active Major depression episode severity: severe Psychotic features: without psychotic features Qualified Code(s): F33.2 - Major depressive disorder, recurrent severe without psychotic features
[2018-02-25] MEDS: Megestrol Acetate Liq 400 MG/10 ML UDC PO SCH ×2 (09:03→12:39)
[2018-02-25] MEDS: Senna/Docusate Sodium 8.6/50 MG Tablet PO SCH ×2 (09:04→20:49)
--- NOTE | 2018-02-25 09:31 | P.PNPSY ---
Subjective Remarks: Patient seen for follow, chart reviewed. Discussion nursing staff reported the patient refused medications last evening, with no physical complaints. Patient was found sitting in hospital eating breakfast noted B, cooperative. Patient states that he slept well last evening stated his mood is "not sure" continues endorse auditory hallucinations of voices telling him "heart attack" as well as telling him to "just ". Patient states that he "might as well just ". Patient continues feeling depressed, along feeling helpless and hopeless but noted with brighter affect today and noted to be eating more today. Patient also mentions that he is trying to drink more fluids. Review of Systems All other systems reviewed negative except as stated in HPI Mental Status Examination Appearance: Other (In [facility]) Consciousness: Alert Orientation: Person, Place, Date/Time Speech: Slow Language: Adequate Fund of Knowledge: Inadequate Attention and Concentration: Inadequate Memory: Unremarkable Mood: Sad Affect: Anxious Thought Process & Associations: Disorganized (At times) Thought Content: Appropriate, Hallucinations, Preoccupations, Delusional Hallucination Type: Auditory Delusion Type: Paranoid Suicidal Ideation: Yes Suicidal Plan: No Suicidal Intention: No Homicidal Ideation: No Homicidal Plan: No Homicidal Intention: No Insight: Poor Judgment: Poor Assessment and Plan - Assessment (1) Major depressive disorder Code(s): F32.9 - Major depressive disorder, single episode, unspecified Status : Acute - Plan Plan: Patient continues with depressed mood along with paranoia and auditory hallucinations. Patient was encouraged to comply with medications which she reluctantly agreed. Patient to continue current treatment. We will continue to monitor mood and behavior. Continue to encourage patient to increase nutritional intake. Discharge planning in progress. Justification for Continued Inpatient Stay: At risk of further composition at lower level of care. Request Healthcare Surrogate/Guardian Advocate?: No (1) Major depressive disorder Qualifiers: Major depression recurrence: recurrent Active/Remission status: currently active Major depression episode severity: severe Psychotic features: without psychotic features Qualified Code(s): F33.2 - Major depressive disorder, recurrent severe without psychotic features
[2018-02-25] MEDS ORDERED: Sod Chloride 0.9% Inj 1,000 ML IV.CONT SCH (16:16)
[2018-02-26] MEDS: Senna/Docusate Sodium 8.6/50 MG Tablet PO SCH ×2 (09:28→20:29)
[2018-02-26] MEDS: Megestrol Acetate Liq 400 MG/10 ML UDC PO SCH (09:29)
--- NOTE | 2018-02-26 09:40 | P.PN ---
Subjective Interval history: Follow-up visit for poor p.o. intake and hypotension. Nursing staff with no acute concerns or complaints, patient has been drinking fluids with encouragement. He is seen and examined resting in bed, appears to be in no acute distress. Reports he is very worried because "I was brought here without any ID, cellphone or social security card, I am going to be homeless". Reports BM yesterday. He denies any fevers, chills, nausea, vomiting, diarrhea, cough, shortness of breath, chest pain or dizziness. Physical Exam Vital signs: Vital Signs 02/25/18 18:38 02/26/18 05:39 Temperature 36.4 C L Pulse Rate 69 67 Respiratory Rate 15 16 Blood Pressure 112/57 L 117/63 Pulse Oximetry 100 97 Intake & Output 02/25/18 02/26/18 02/26/18 18:59 06:59 18:59 Intake Total 1500 / 1500 0 / 0 480 / 480 Balance 1500 / 1500 0 / 0 480 / 480 Intake: Oral 1500 / 1500 0 / 0 480 / 480 Other: # Voids 1 Narrative: GENERAL: Thin appearing well-developed male, awake, alert, ambulating. SKIN: Warm and dry. HEENT: Atraumatic. Normocephalic. EOMI. No scleral icterus. No injection or drainage. No nasal bleeding or discharge. Airway patent. Mucous membranes pink and moist. NECK: Trachea midline. No JVD. CARDIOVASCULAR: Regular rate and rhythm. RESPIRATORY: No accessory muscle use. Clear, no rhonchi or crackles. GASTROINTESTINAL: Flat, nontender, normoactive bowel sounds. MUSCULOSKELETAL: Extremities without clubbing, cyanosis, or edema. No obvious deformities. NEUROLOGICAL: Awake and alert, oriented to self and place. Motor grossly within normal limits, follow simple commands. Speech is clear, no facial droop. PSYCHIATRIC: Appears calm and cooperative this morning. Results - Labs CBC & Chem 7: 02/20/18 20:00 02/24/18 13:26 Assessment and Plan - Assessment (1) Psychosis Code(s): F29 - Unspecified psychosis not due to a substance or known physiological condition Status: Acute (2) Protein calorie malnutrition Code(s): E46 - Unspecified protein-calorie malnutrition Status: Acute (3) Major depressive disorder Code(s): F32.9 - Major depressive disorder, single episode, unspecified Status : Acute (4) Hypothyroid Code(s): E03.9 - Hypothyroidism, unspecified Status: Acute - Plan 67-year-old male with a past medical history of hypertension, GERD, hypothyroidism and tinnitus. Psychiatric history includes depression with no previous suicide attempt. He was admitted February 16, 2018 by Taylor pradhan due to suicide attempt. He told the officer responding to the call that he took "25 Zoloft". He has recently lost his girlfriend after an unexpected and has struggled with grief since then. He was previously seen in the emergency room January 2018 when family friends brought him saying that he was not acting like himself. They also report that he has lost a lot of weight over the past few months. At the time of that visit patient refused CT scan. He was found to be hypothyroid instructed to follow-up with his primary which he did not do. Major depressive disorder Psychosis with paranoia and hallucinations Grief s/p unexpected of his girlfriend -Management per psychiatric team -Patient has been calm and cooperative Hypothyroidism, not currently taking any medication TSH 8.8 on 01/31. Repeat panel 02/17/18: TSH 3.76, T4 & T3 normal. -Levothyroxine not indicated at this time. Recheck thyroid studies in 4-6 weeks. Weight loss, poor po intake Protein calorie malnutrition -Dietitian following, patient with inadequate calorie intake from 02/18-02/20. Recommendations for tube feedings, Jevity 1.5 at 30 mL's per hour increase by 10 mL's every 4 hours as tolerated to reach a goal rate of 60 mL's per hour -Started on Megace 02/20, intermittently cooperative with medication. -encourage p.o. intake, better intake with encouragement. Leukocytosis, suspect reactive, resolved Patient is afebrile. Does not appear septic. -monitor as indicated Hypertensive, elevated BP measurement 176/62 Hypotensive episode 02/23 with BP 82/43, symptomatic +orthostatic BP's likely secondary to poor p.o intake -Patient usually normotensive. Suspect elevated BP secondary to agitation/ stress. Will add clonidine as needed with parameters. -s/p 1L NS IV bolus, BP improved, continue IV fluids. Hypotension most likely secondary to poor p.o. intake -Denies any dizziness Constipation -Patient encouraged to drink fluids -Begin scheduled stool softener twice daily. Miralax prn. -+BM reported by patient, continue stool softeners with as needed laxatives as needed. DVT prophylaxis; patient is currently ambulatory Discharge Planning: Patient and nurse. (3) Major depressive disorder Qualifiers: Major depression recurrence: recurrent Active/Remission status: currently active Major depression episode severity: severe Psychotic features: without psychotic features Qualified Code(s): F33.2 - Major depressive disorder, recurrent severe without psychotic features
--- NOTE | 2018-02-26 16:09 | P.PNPSY ---
Subjective Remarks: Patient was seen and case discussed with nursing. Patient remains perseverative on his health. He has auditory hallucinations telling him he is going to have a heart attack. We discussed his medications and he became concerned that Zyprexa is an antipsychotic. Per nursing is eating and sleeping well. Affect is anxious. He denies suicidal or homicidal ideation intent or plan Mental Status Examination Appearance: Other (In [facility]) Consciousness: Alert Orientation: Person, Place, Date/Time Speech: Slow Language: Adequate Fund of Knowledge: Inadequate Attention and Concentration: Inadequate Memory: Unremarkable Mood: Sad Affect: Anxious Thought Process & Associations: Disorganized (At times) Thought Content: Appropriate, Hallucinations, Preoccupations, Delusional Hallucination Type: Auditory Delusion Type: Paranoid Suicidal Ideation: No Suicidal Plan: No Suicidal Intention: No Homicidal Ideation: No Homicidal Plan: No Homicidal Intention: No Insight: Poor Judgment: Poor Assessment and Plan - Assessment (1) Major depressive disorder Code(s): F32.9 - Major depressive disorder, single episode, unspecified Status : Acute - Plan Plan: Continue current treatment plan Justification for Continued Inpatient Stay: Patient would decompensate in a less restrictive setting Request Healthcare Surrogate/Guardian Advocate?: No (1) Major depressive disorder Qualifiers: Major depression recurrence: recurrent Active/Remission status: currently active Major depression episode severity: severe Psychotic features: without psychotic features Qualified Code(s): F33.2 - Major depressive disorder, recurrent severe without psychotic features
--- NOTE | 2018-02-27 08:36 | P.PN ---
Subjective Interval history: Follow-up visit for poor p.o. intake and hypotension. Patient seen and examined resting in bed in no acute distress. He denies any fevers, chills, nausea, vomiting, diarrhea, cough or shortness of breath. Voiding and moving his bowels without any issues today. Nurse with no acute complaints or concerns. Patient continues to express concerns over will happen to him, and where he will go. Physical Exam Vital signs: Vital Signs 02/26/18 18:53 02/27/18 05:35 Temperature 36.2 C L 36.6 C Pulse Rate 71 74 Respiratory Rate 17 18 Blood Pressure 105/51 L 117/65 Pulse Oximetry 98 97 Intake & Output 02/26/18 02/27/18 02/27/18 18:59 06:59 18:59 Intake Total 2670 / 2670 600 / 600 Balance 2670 / 2670 600 / 600 Intake: Oral 2670 / 2670 600 / 600 Other: # Voids 1 Narrative: GENERAL: Thin appearing well-developed male, awake, alert, ambulating. SKIN: Warm and dry. HEENT: Atraumatic. Normocephalic. EOMI. No scleral icterus. No injection or drainage. No nasal bleeding or discharge. Airway patent. Mucous membranes pink and moist. NECK: Trachea midline. CARDIOVASCULAR: Regular rate and rhythm. RESPIRATORY: No accessory muscle use. Clear, no rhonchi or crackles. GASTROINTESTINAL: Flat, nontender, normoactive bowel sounds. MUSCULOSKELETAL: Extremities without clubbing, cyanosis, or edema. No obvious deformities. NEUROLOGICAL: Awake and alert, oriented to self and place. Motor grossly within normal limits, follow simple commands. Speech is clear, no facial droop. PSYCHIATRIC: Appears calm and cooperative this morning. Results - Labs CBC & Chem 7: 02/20/18 20:00 02/24/18 13:26 Assessment and Plan - Assessment (1) Psychosis Code(s): F29 - Unspecified psychosis not due to a substance or known physiological condition Status: Acute (2) Protein calorie malnutrition Code(s): E46 - Unspecified protein-calorie malnutrition Status: Acute (3) Major depressive disorder Code(s): F32.9 - Major depressive disorder, single episode, unspecified Status : Acute (4) Hypothyroid Code(s): E03.9 - Hypothyroidism, unspecified Status: Acute - Plan 67-year-old male with a past medical history of hypertension, GERD, hypothyroidism and tinnitus. Psychiatric history includes depression with no previous suicide attempt. He was admitted February 16, 2018 by Taylor pradhan due to suicide attempt. He told the officer responding to the call that he took "25 Zoloft". He has recently lost his girlfriend after an unexpected and has struggled with grief since then. He was previously seen in the emergency room January 2018 when family friends brought him saying that he was not acting like himself. They also report that he has lost a lot of weight over the past few months. At the time of that visit patient refused CT scan. He was found to be hypothyroid instructed to follow-up with his primary which he did not do. Major depressive disorder Psychosis with paranoia and hallucinations Grief s/p unexpected of his girlfriend -Management per psychiatric team -Patient has been calm and cooperative Hypothyroidism, not currently taking any medication TSH 8.8 on 01/31. Repeat panel 02/17/18: TSH 3.76, T4 & T3 normal. -Levothyroxine not indicated at this time. Recheck thyroid studies in 4-6 weeks. Weight loss, poor po intake Protein calorie malnutrition -Dietitian following, patient with inadequate calorie intake from 02/18-02/20. Recommendations for tube feedings, Jevity 1.5 at 30 mL's per hour increase by 10 mL's every 4 hours as tolerated to reach a goal rate of 60 mL's per hour -Started on Megace 02/20, intermittently cooperative with medication. -encourage p.o. intake, better intake with encouragement. Leukocytosis, suspect reactive, resolved Patient is afebrile. Does not appear septic. -monitor as indicated Hypertensive, elevated BP measurement 176/62 Hypotensive episode 02/23 with BP 82/43, symptomatic +orthostatic BP's likely secondary to poor p.o intake - Received fluid boluses, now BP has been stable Constipation -Patient encouraged to drink fluids -Begin scheduled stool softener twice daily. Miralax prn. -+BM DVT prophylaxis; patient is currently ambulatory Discharge Planning: Patient and nurse. (3) Major depressive disorder Qualifiers: Major depression recurrence: recurrent Active/Remission status: currently active Major depression episode severity: severe Psychotic features: without psychotic features Qualified Code(s): F33.2 - Major depressive disorder, recurrent severe without psychotic features
[2018-02-27] MEDS: Senna/Docusate Sodium 8.6/50 MG Tablet PO SCH ×2 (09:38→20:10)
[2018-02-27] MEDS: Megestrol Acetate Liq 400 MG/10 ML UDC PO SCH (09:39)
--- NOTE | 2018-02-27 14:59 | P.PNPSY ---
Subjective Remarks: Patient was seen and case discussed with nursing. Patient is pleasant and cooperative with exam. Continues to complain of bothersome auditory hallucinations telling him he is having a heart attack. Affect is quite anxious. He continues to feel hopeless towards the future and is passive suicidal ideation without intent or plan Mental Status Examination Appearance: Other (In [facility]) Consciousness: Alert Orientation: Person, Place, Date/Time Speech: Slow Language: Adequate Fund of Knowledge: Inadequate Attention and Concentration: Inadequate Memory: Unremarkable Mood: Sad, Anxious Affect: Anxious Thought Process & Associations: Disorganized (At times) Thought Content: Appropriate, Hallucinations, Preoccupations, Delusional Hallucination Type: Auditory Delusion Type: Paranoid Suicidal Ideation: No Suicidal Plan: No Suicidal Intention: No Homicidal Ideation: No Homicidal Plan: No Homicidal Intention: No Insight: Poor Judgment: Poor Assessment and Plan - Assessment (1) Major depressive disorder Code(s): F32.9 - Major depressive disorder, single episode, unspecified Status : Acute - Plan Plan: Consider increasing or changing antipsychotic Justification for Continued Inpatient Stay: Patient would decompensate in a less restrictive setting Request Healthcare Surrogate/Guardian Advocate?: No (1) Major depressive disorder Qualifiers: Major depression recurrence: recurrent Active/Remission status: currently active Major depression episode severity: severe Psychotic features: without psychotic features Qualified Code(s): F33.2 - Major depressive disorder, recurrent severe without psychotic features
--- NOTE | 2018-02-28 08:40 | P.PN ---
Subjective Interval history: Follow-up visit for poor p.o. intake and hypotension. Patient is seen and examined resting in bed with covers over his head. He denies any fevers, chills , nausea, vomiting, diarrhea, chest pain, cough or shortness of breath. Patient reports that he continues to worry about his "situation". He voices no other acute concerns or complaint at the moment. Physical Exam Vital signs: Vital Signs 02/27/18 18:08 02/28/18 06:00 Temperature 36.5 C 36.4 C Pulse Rate 66 55 L Respiratory Rate 17 17 Blood Pressure 109/61 112/61 Pulse Oximetry 96 97 Intake & Output 02/27/18 02/28/18 02/28/18 18:59 06:59 18:59 Intake Total 960 / 960 340 / 340 240 / 240 Balance 960 / 960 340 / 340 240 / 240 Weight 68 kg Intake: Oral 960 / 960 240 / 240 240 / 240 Oral Supplement 100 / 100 Other: # Voids 3 0 Narrative: GENERAL: Thin appearing well-developed male, awake, alert. SKIN: Warm and dry. HEENT: Atraumatic. Normocephalic. No scleral icterus. No injection or drainage. No nasal bleeding or discharge. Airway patent. Mucous membranes pink and moist. NECK: Trachea midline. CARDIOVASCULAR: Regular rate and rhythm. RESPIRATORY: No accessory muscle use. Clear, no rhonchi or crackles. GASTROINTESTINAL: Flat, nontender, normoactive bowel sounds. MUSCULOSKELETAL: Extremities without clubbing, cyanosis, or edema. No obvious deformities. NEUROLOGICAL: Awake and alert, oriented to self and place. Motor grossly within normal limits, follow simple commands. Speech is clear, no facial droop. PSYCHIATRIC: Appears calm and cooperative this morning. Results - Labs CBC & Chem 7: 02/20/18 20:00 02/24/18 13:26 Assessment and Plan - Assessment (1) Psychosis Code(s): F29 - Unspecified psychosis not due to a substance or known physiological condition Status: Acute (2) Protein calorie malnutrition Code(s): E46 - Unspecified protein-calorie malnutrition Status: Acute (3) Major depressive disorder Code(s): F32.9 - Major depressive disorder, single episode, unspecified Status : Acute (4) Hypothyroid Code(s): E03.9 - Hypothyroidism, unspecified Status: Acute - Plan 67-year-old male with a past medical history of hypertension, GERD, hypothyroidism and tinnitus. Psychiatric history includes depression with no previous suicide attempt. He was admitted February 16, 2018 by Taylor pradhan due to suicide attempt. He told the officer responding to the call that he took "25 Zoloft". He has recently lost his girlfriend after an unexpected and has struggled with grief since then. He was previously seen in the emergency room January 2018 when family friends brought him saying that he was not acting like himself. They also report that he has lost a lot of weight over the past few months. At the time of that visit patient refused CT scan. He was found to be hypothyroid instructed to follow-up with his primary which he did not do. Major depressive disorder Psychosis with paranoia and hallucinations Grief s/p unexpected of his girlfriend -Management per psychiatric team -Patient has been calm and cooperative Hypothyroidism, not currently taking any medication TSH 8.8 on 01/31. Repeat panel 02/17/18: TSH 3.76, T4 & T3 normal. -Levothyroxine not indicated at this time. Recheck thyroid studies in 4-6 weeks. Weight loss, poor po intake Protein calorie malnutrition -Dietitian following, patient with inadequate calorie intake from 02/18-02/20. Recommendations for tube feedings, Jevity 1.5 at 30 mL's per hour increase by 10 mL's every 4 hours as tolerated to reach a goal rate of 60 mL's per hour -Started on Megace 02/20, intermittently cooperative with medication. -Patient with better p.o. intake as well as better fluid intake. Leukocytosis, suspect reactive, resolved Patient is afebrile. Does not appear septic. -monitor as indicated Hypertensive, elevated BP measurement 176/62 Hypotensive episode 02/23 with BP 82/43, symptomatic +orthostatic BP's likely secondary to poor p.o intake - Received fluid boluses, now BP has been stable Constipation -Patient encouraged to drink fluids -Begin scheduled stool softener twice daily. Miralax prn. -+BM DVT prophylaxis; patient is currently ambulatory Patient medically clear to transfer out of medical psych unit. [facility] will sign off, please reconsult if needed. Discharge Planning: Patient and nurse. (3) Major depressive disorder Qualifiers: Major depression recurrence: recurrent Active/Remission status: currently active Major depression episode severity: severe Psychotic features: without psychotic features Qualified Code(s): F33.2 - Major depressive disorder, recurrent severe without psychotic features
[2018-02-28] MEDS: Megestrol Acetate Liq 400 MG/10 ML UDC PO SCH (09:40)
[2018-02-28] MEDS: Senna/Docusate Sodium 8.6/50 MG Tablet PO SCH ×2 (09:40→22:10)
--- NOTE | 2018-02-28 17:22 | P.PNPSY ---
Subjective Remarks: Patient seen for follow-up, chart reviewed. Discussion with nursing staff reported the patient continues to endorse auditory hallucinations, compliant with medication. Patient was found lying hospital bed eating breakfast, cooperative with interview. Patient states that he continues not to know what to do, stating that he has nowhere to go and continue to be perseverative on "I do not know why I was brought here, I have nothing". Patient also continues to endorse wanting to stating "I cannot stop myself that will take too long". Patient continued to be encouraged to maintain adequate nutrition. Patient continues to endorse auditory hallucinations of voices telling him "heart attack " which have been distressing. Review of Systems All other systems reviewed negative except as stated in HPI Mental Status Examination Appearance: Other (In hospital [facility]) Consciousness: Alert Orientation: Person, Place, Date/Time Speech: Slow Language: Adequate Fund of Knowledge: Inadequate Attention and Concentration: Inadequate Memory: Unremarkable Mood: Sad, Anxious Affect: Anxious Thought Process & Associations: Disorganized (At times) Thought Content: Appropriate, Hallucinations, Preoccupations, Delusional Hallucination Type: Auditory Delusion Type: Paranoid Suicidal Ideation: Yes Suicidal Plan: No Suicidal Intention: No Homicidal Ideation: No Homicidal Plan: No Homicidal Intention: No Insight: Poor Judgment: Poor Assessment and Plan - Assessment (1) Major depressive disorder Code(s): F32.9 - Major depressive disorder, single episode, unspecified Status : Acute - Plan Plan: Patient this time continues to have perceptional disturbances which have been distressing, continues to have depressed mood along with suicidal ideations noted be less paranoid today. We will increase olanzapine 2.5 mg p.o. a.m./5 mg p.o. at bedtime for psychosis and mood stabilization. Continue rest of medications continue to encourage patient to maintain adequate nutritional intake. Hospitalist input appreciated. Continue to monitor mood and behavior. Discharge planning a progress. Justification for Continued Inpatient Stay: At risk of further decompensation a lower level of care. Request Healthcare Surrogate/Guardian Advocate?: No (1) Major depressive disorder Qualifiers: Major depression recurrence: recurrent Active/Remission status: currently active Major depression episode severity: severe Psychotic features: without psychotic features Qualified Code(s): F33.2 - Major depressive disorder, recurrent severe without psychotic features
--- NOTE | 2018-02-28 17:34 | P.DIET ---
Nutritional Evaluation Type of nutrition evaluation: follow-up Nutrition consult regarding: Diet Evaluation (Poor PO Intake) Nutrition screening: Weight Loss > 10 lbs Objective - Diagnosis Major Depressive DO, Recurrent - Objective % IBW: 87 (VVY=808#) Body Weight Used for Calculations: Actual (67.5kg) Energy Needs - Lower Range (kCal/kg): 30 Energy Needs - Upper Range (kCal/kg): 35 Lower Limit kCal/kg (kCals): 2,025 Upper Limit kCal/kg (kCals): 2,363 Lower Limit Protein Factor (Grams per Kg): 1.1 Upper Limit Protein Factor (Grams per Kg): 1.4 Lower Protein Needs (Protein): 74 Upper Protein Needs (Protein): 95 Fluid Factor (ml/kg): 30 Estimated Fluid Needs (ml): 2,025 Dietitian Reviewed in Medical Record: Current diet, Curent medications, Intake & Output, Labs, Medical history Diet Order: Regular, Gatorade w/ meals Oral Diet Intake Amount: Good 75-90% Objective Comments: Meds: Megace 400mg QD No BM recorded Feeding - Current PO Supplement Current Supplement: Ensure Enlive Current Supplement Flavor: Vanilla Current Frequency of Supplement: Three times a day Current kCals Provided by Supplement: 350 Current Protein Provided by Supplement: 20 Assessment Assessment: Pt remains on a Regular diet. He is receiving Enlive TID for added nutrition. His PO intake has significantly improved since last week. Pt is now eating 75- 100% of his meals. He is on Megace 400mg daily for appetite stimulation. Recommend to continue this per MD discretion. Pt remains at nutritional risk r/ t wt loss and current wt status. He is at 87% of his IBW. Continue current POC. Will continue to follow. Recommendations: 1. Continue Regular diet. 2. Continue Enlive TID. 3. Continue Megace per MD discretion. Dietitian to Monitor: Lab values, Supplement acceptance, Intake & Output, Diet tolerance, Weight change, PO Intake, Medical course
[2018-03-01] MEDS ORDERED: OLANZapine 2.5 MG Tablet PO SCH (09:00)
[2018-03-01] MEDS: Senna/Docusate Sodium 8.6/50 MG Tablet PO SCH ×2 (10:20→22:32)
[2018-03-01] MEDS: Megestrol Acetate Liq 400 MG/10 ML UDC PO SCH (10:20)
--- NOTE | 2018-03-01 16:43 | P.PNPSY ---
Subjective Remarks: Patient seen for follow, chart reviewed. Discussion nursing staff reported the patient continues report feeling depressed, noted to be somewhat paranoid with his medications, patient did not receive his medications last evening. Patient was found lying hospital bed noted to be, cooperative and noted to be perseverative on having had an increase in dose last evening and be reluctant to take this medication. Patient states that he continues to have auditory hallucinations last evening as well as this morning. Patient reports having had some difficulty with sleep last evening. Patient during interview also began to be upset stating that he has nowhere to go, has no money to pay for his medications and began make statements of catastrophic thinking which patient had a be redirected and provided with brief supportive therapy. Patient was encouraged to maintain compliance with treatment as well as participating groups and activities. Review of Systems All other systems reviewed negative except as stated in HPI Mental Status Examination Appearance: Appropriate, Other (In [facility]) Consciousness: Alert Orientation: Person, Place, Date/Time Speech: Slow Language: Adequate Fund of Knowledge: Inadequate Attention and Concentration: Inadequate Memory: Unremarkable Mood: Sad, Anxious Affect: Anxious Thought Process & Associations: Disorganized (At times) Thought Content: Appropriate, Hallucinations, Preoccupations, Delusional Hallucination Type: Auditory Delusion Type: Paranoid Suicidal Ideation: Yes Suicidal Plan: No Suicidal Intention: No Homicidal Ideation: No Homicidal Plan: No Homicidal Intention: No Insight: Poor Judgment: Poor Assessment and Plan - Assessment (1) Major depressive disorder Code(s): F32.9 - Major depressive disorder, single episode, unspecified Status : Acute - Plan Plan: Patient this time continues with depressed mood, auditory hallucinations as well as nihilistic thinking, feeling helpless and hopeless still. Patient also noted to have continued paranoid ideations with medications. We will increase olanzapine to 5 mg p.o. twice daily for mood stabilization and psychosis. We will continue to monitor with behavior. Continue to encourage patient to maintain personal hygiene as well as participating groups and activities on the unit. Discharge planning a progress. Justification for Continued Inpatient Stay: At risk for decompensation at lower level of care. Request Healthcare Surrogate/Guardian Advocate?: No (1) Major depressive disorder Qualifiers: Major depression recurrence: recurrent Active/Remission status: currently active Major depression episode severity: severe Psychotic features: without psychotic features Qualified Code(s): F33.2 - Major depressive disorder, recurrent severe without psychotic features
[2018-03-02] MEDS: Megestrol Acetate Liq 400 MG/10 ML UDC PO SCH (10:08)
[2018-03-02] MEDS: Senna/Docusate Sodium 8.6/50 MG Tablet PO SCH (10:08)
--- NOTE | 2018-03-02 10:54 | P.PNPSY ---
Subjective Remarks: Patient seen for follow, chart reviewed. Discussion nursing staff reported the patient took medication lessening refuse Benadryl last night. Patient was found lying hospital bed noted B, cooperative. Patient reports that she had difficulty time with rest sleep last evening, patient continues to endorse auditory hallucination but was able to specify when the last time he had experienced this. Patient states that he thinks that last evening was a colostomy had auditory hallucinations. Patient regard to his appetite stay is trying to eat more. Patient was encouraged to participate in groups and activities and states "I will think, at that point he had to go to groups". Patient noted to be slightly less anxious today and less perseverative on catastrophic thinking. Review of Systems All other systems reviewed negative except as stated in HPI Mental Status Examination Appearance: Appropriate, Other (In [facility]) Consciousness: Alert Orientation: Person, Place, Date/Time Speech: Slow Language: Adequate Fund of Knowledge: Inadequate Attention and Concentration: Inadequate Memory: Unremarkable Mood: Sad Affect: Sad Thought Process & Associations: Disorganized (At times) Thought Content: Hallucinations (Lessening), Preoccupations, Delusional Hallucination Type: Auditory Delusion Type: Paranoid Suicidal Ideation: Yes Suicidal Plan: No Suicidal Intention: No Homicidal Ideation: No Homicidal Plan: No Homicidal Intention: No Insight: Poor Judgment: Poor Assessment and Plan - Assessment (1) Major depressive disorder Code(s): F32.9 - Major depressive disorder, single episode, unspecified Status : Acute - Plan Plan: Patient this time continues with depressed mood along with suicidal ideation which are now more vague, noted decrease in auditory hallucinations and they are now less frequent and less intense. Patient continues to struggle with poor motivation and requires encouragement for participation in groups and activities as well as to improve nutritional intake although noted to have improved p.o. intake. We will continue current treatment. We will consider adding an antidepressant to her regimen if patient continued with partial response although noted to his less psychotic symptoms at this time. Discharge planning a progress. Justification for Continued Inpatient Stay: At risk for further decompensation if at lower level of care Request Healthcare Surrogate/Guardian Advocate?: No (1) Major depressive disorder Qualifiers: Major depression recurrence: recurrent Active/Remission status: currently active Major depression episode severity: severe Psychotic features: without psychotic features Qualified Code(s): F33.2 - Major depressive disorder, recurrent severe without psychotic features
[2018-03-03] MEDS: Senna/Docusate Sodium 8.6/50 MG Tablet PO SCH ×3 (05:38→21:39)
[2018-03-03] MEDS: Megestrol Acetate Liq 400 MG/10 ML UDC PO SCH (08:49)
--- NOTE | 2018-03-03 15:07 | P.PNPSY ---
Subjective Remarks: Patient seen for follow, chart reviewed. Discussion nursing staff reported the patient continued to be compliant medications slept well last night but resistant to participating groups and activities and has not kept with his hygiene. Patient was found lying hospital bed noted B, cooperative. Patient states that he slept okay but then later stated that he had disturbed sleep. Patient state he is trying to eat better, continues with auditory hallucinations telling him "heart attack" but was unable to recall whether hallucinations are decreasing or has been the same. Patient when talking about his discharge plan begins to become overwhelmed and unable to maintain focus on topic. Patient was encouraged to shower maintaining hygiene today which he agreed but continues to be reluctant to participate in groups and activities. Review of Systems All other systems reviewed negative except as stated in HPI Mental Status Examination Appearance: Appropriate, Other (In [facility]) Consciousness: Alert Orientation: Person, Place, Date/Time Speech: Slow Language: Adequate Fund of Knowledge: Inadequate Attention and Concentration: Inadequate Memory: Unremarkable Mood: Sad Affect: Sad Thought Process & Associations: Disorganized (At times) Thought Content: Hallucinations (Lessening), Preoccupations, Delusional Hallucination Type: Auditory Delusion Type: Paranoid Suicidal Ideation: Yes Suicidal Plan: No Suicidal Intention: No Homicidal Ideation: No Homicidal Plan: No Homicidal Intention: No Insight: Poor Judgment: Poor Assessment and Plan - Assessment (1) Major depressive disorder Code(s): F32.9 - Major depressive disorder, single episode, unspecified Status : Acute - Plan Plan: Patient this time continues to have difficulty with organization of thought regarding his psychosocial circumstances although patient has his own apartment becomes overwhelmed at times. Patient noted to be less paranoid although continues to be suspicious of his medications. Patient continues to endorse auditory hallucinations. We will continue to titrate olanzapine to 5 mg a.m./ 7.5 mg at bedtime for psychosis and mood stabilization. We will continue to monitor mood and behavior. Continue to encourage patient maintain personal hygiene as well as participate in groups and activities. Patient nutrition appears to be improving. Discharge planning in progress. Justification for Continued Inpatient Stay: At risk of further decompensation a lower level of care. Request Healthcare Surrogate/Guardian Advocate?: No (1) Major depressive disorder Qualifiers: Major depression recurrence: recurrent Active/Remission status: currently active Major depression episode severity: severe Psychotic features: without psychotic features Qualified Code(s): F33.2 - Major depressive disorder, recurrent severe without psychotic features
[2018-03-03] MEDS: OLANZapine 2.5 MG Tablet PO SCH (21:39)
[2018-03-04] MEDS: Senna/Docusate Sodium 8.6/50 MG Tablet PO SCH ×2 (08:47→21:49)
[2018-03-04] MEDS: Megestrol Acetate Liq 400 MG/10 ML UDC PO SCH (08:47)
--- NOTE | 2018-03-04 14:32 | P.PNPSY ---
Subjective Remarks: Patient seen for follow, chart reviewed. Discussion nursing staff reported the patient mentioned that gas was being pumped into the air, compliant medications and continued to be suspicious about his medications. Patient was found lying hospital bed noted B, cooperative. Patient states he did go out for breakfast and ate about 75% of his meal and that his appetite is getting better. He states having slept well last evening, states that his mood has been "the same up and down". Patient was not able to recall the last time he had voices telling him heart attack s but states that now he hears "singsong, like music". Patient began to feel distressed stating that he has no place to go but was reminded that he has an apartment but was unable to maintain conversation over this and noted to be starting to get overwhelmed and needed redirection. Patient was encouraged to participate in groups and activities which she acknowledged. Review of Systems All other systems reviewed negative except as stated in HPI Mental Status Examination Appearance: Appropriate, Other (In [facility]) Consciousness: Alert Orientation: Person, Place, Date/Time Speech: Slow Language: Adequate Fund of Knowledge: Inadequate Attention and Concentration: Inadequate Memory: Unremarkable Mood: Sad Affect: Sad Thought Process & Associations: Disorganized (At times) Thought Content: Hallucinations ("sing song"), Preoccupations, Delusional Hallucination Type: Auditory Delusion Type: Paranoid Suicidal Ideation: Yes Suicidal Plan: No Suicidal Intention: No Homicidal Ideation: No Homicidal Plan: No Homicidal Intention: No Insight: Poor Judgment: Poor Assessment and Plan - Assessment (1) Major depressive disorder Code(s): F32.9 - Major depressive disorder, single episode, unspecified Status : Acute - Plan Plan: Patient this time noted to have less moments of disorganization but continues to feel overwhelmed at times. Patient having decrease in auditory hallucinations, has been having improved appetite continues to be seclusive and requiring much redirection and encouragement to participate in groups and activities. We will continue to monitor mood and behavior. Consider titrating olanzapine over the weekend. Discharge planning in progress. Justification for Continued Inpatient Stay: At risk for further decompensation if at lower level of care. Request Healthcare Surrogate/Guardian Advocate?: No (1) Major depressive disorder Qualifiers: Major depression recurrence: recurrent Active/Remission status: currently active Major depression episode severity: severe Psychotic features: without psychotic features Qualified Code(s): F33.2 - Major depressive disorder, recurrent severe without psychotic features
--- NOTE | 2018-03-04 16:07 | P.DIET ---
Nutritional Evaluation Type of nutrition evaluation: follow-up Nutrition consult regarding: Diet Evaluation (Poor PO Intake) Nutrition screening: Weight Loss > 10 lbs Screening comments: Poor PO Intake; Calorie Counting Subjective Barriers to Nutrition: Refuses to eat at times Subjective Comments: Pt in his room after lunch and reports he doesnt feel well-relayed this to his RN Macy. Pt says he continues to try to "eat something at meals" Brought forth from previous note: Pt reported to Nursing that he has lost 45-lb recently. Pt's Ht estimated as 71-inches(180.34cm)-used for assessment here Objective - Diagnosis Major Depressive DO, Recurrent - Indications of Malnutrition Characteristics: Weight loss - Objective % IBW: 87 (DEP=083#) Body Weight Used for Calculations: Actual (67.5kg) Energy Needs - Lower Range (kCal/kg): 30 Energy Needs - Upper Range (kCal/kg): 35 Lower Limit kCal/kg (kCals): 2,025 Upper Limit kCal/kg (kCals): 2,363 Lower Limit Protein Factor (Grams per Kg): 1.1 Upper Limit Protein Factor (Grams per Kg): 1.4 Lower Protein Needs (Protein): 74 Upper Protein Needs (Protein): 95 Fluid Factor (ml/kg): 30 Estimated Fluid Needs (ml): 2,025 Dietitian Reviewed in Medical Record: Current diet, Curent medications, Intake & Output, Labs, Medical history Diet Order: Regular, Gatorade w/ meals Oral Diet Intake Amount: Good 75-90% Objective Comments: Meds: Megace 400mg QD Feeding - Current PO Supplement Current Supplement: Ensure Enlive Current Supplement Flavor: Vanilla Current Frequency of Supplement: Three times a day Current kCals Provided by Supplement: 350 Current Protein Provided by Supplement: 20 Assessment Assessment: Pt remains on a Regular diet. He is receiving Enlive TID for added nutrition. PO intake Adequate 50% or greater for most meals taken. Noted pt receiving Megace 400mg daily for appetite stimulation. Labs reviewed. Wt Stable. Dietitian Following. Recommendations: 1.Enlive TID for added nutrition 2.Noted pt receiving Megace 400mg daily for appetite stimulation 3.Dietitian Following Dietitian to Monitor: Lab values, Supplement acceptance, Intake & Output, Diet tolerance, Weight change, PO Intake, Medical course
[2018-03-04] MEDS: OLANZapine 2.5 MG Tablet PO SCH (21:48)
[2018-03-05] MEDS: Senna/Docusate Sodium 8.6/50 MG Tablet PO SCH ×2 (08:23→20:45)
[2018-03-05] MEDS: Megestrol Acetate Liq 400 MG/10 ML UDC PO SCH (08:30)
--- NOTE | 2018-03-05 10:29 | P.PNPSY ---
Subjective Chief Complaint: Major Depressive Disorder Remarks: Chart reviewed and discussed with nursing staff. Rounded on patient with Chilo RUST. Patient was found lying in his bed in room 2612. He appears somewhat paranoid. He is suspicious of all medications. He endorses that he has been taking his Zyprexa. He states that the medication is making his jaw stiff and his arms experience tremors. He shares a list of somatic complaints including ringing in his ears, dizziness, and lightheaded. He questions every medication and feels that he is too old to take medications at this time in his life. He is asking for something to address his bowels as he is constipated. He presents sad with flat and blunted affect. When questioned about his mood he does endorse that he is sad. Will encourage patient to participate in unit activities and spend more time out of his bed. Review of Systems All other systems reviewed negative except as stated in HPI Mental Status Examination Appearance: Appropriate, Other (In [facility]) Consciousness: Alert Orientation: Person, Place, Date/Time Speech: Slow Language: Adequate Fund of Knowledge: Inadequate Attention and Concentration: Inadequate Memory: Unremarkable Mood: Sad Affect: Sad Thought Process & Associations: Disorganized (At times) Thought Content: Preoccupations (with medications ) Hallucination Type: Auditory (internally stimulated ) Delusion Type: Paranoid Suicidal Ideation: Yes Suicidal Plan: No Suicidal Intention: No Homicidal Ideation: No Homicidal Plan: No Homicidal Intention: No Insight: Poor Judgment: Poor Assessment and Plan - Assessment (1) Major depressive disorder Code(s): F32.9 - Major depressive disorder, single episode, unspecified Status : Acute - Plan Plan: Patient this time noted to have less moments of disorganization but continues to feel overwhelmed at times. Patient having decrease in auditory hallucinations, has been having improved appetite continues to be seclusive and requiring much redirection and encouragement to participate in groups and activities. We will continue to monitor mood and behavior. Consider titrating olanzapine over the weekend. Discharge planning in progress. Will add cogentin to his medications. Justification for Continued Inpatient Stay: High risk for decompensation if less restrictive environment. Discharge Planning: Discharge planning in progress. Request Healthcare Surrogate/Guardian Advocate?: No (1) Major depressive disorder Qualifiers: Major depression recurrence: recurrent Active/Remission status: currently active Major depression episode severity: severe Psychotic features: without psychotic features Qualified Code(s): F33.2 - Major depressive disorder, recurrent severe without psychotic features
[2018-03-05] MEDS: OLANZapine 2.5 MG Tablet PO SCH (20:34)
[2018-03-06] MEDS: Senna/Docusate Sodium 8.6/50 MG Tablet PO SCH (08:53)
[2018-03-06] MEDS: Megestrol Acetate Liq 400 MG/10 ML UDC PO SCH (11:39)
--- NOTE | 2018-03-06 12:43 | P.PNPSY ---
Subjective Chief Complaint: Major Depressive Disorder Remarks: Reviewed electronic medical records and discussed case with staff. Follow-up was conducted in patient's room. His nurse reports that he stated he is experiencing auditory hallucinations. However, at this time they just "call his name". Patient reports that he slept well has good appetite. No complaints today. No indication of internal stimulation or thought blocking. Patient's mood is good his affect is euthymic. His nurse did advise that he had politely declined his Cogentin this morning stating that his tremors were improved. Upon my examination he did have a bit of a tremor to his left hand. I advised him that should this worsen and he feel the need that he could ask the nurse for his Cogentin. He expressed understanding. Mental Status Examination Appearance: Appropriate, Other (In [facility]) Consciousness: Alert Orientation: Person, Place, Date/Time Speech: Slow Language: Adequate Fund of Knowledge: Inadequate Attention and Concentration: Inadequate Memory: Unremarkable Mood: Sad Affect: Sad Thought Process & Associations: Disorganized (At times) Thought Content: Preoccupations (with medications ) Hallucination Type: Auditory (internally stimulated ) Delusion Type: Paranoid Suicidal Ideation: Yes Suicidal Plan: No Suicidal Intention: No Homicidal Ideation: No Homicidal Plan: No Homicidal Intention: No Insight: Poor Judgment: Poor Assessment and Plan - Assessment (1) Major depressive disorder Code(s): F32.9 - Major depressive disorder, single episode, unspecified Status : Acute - Plan Plan: Patient will be reevaluated tomorrow by his attending psychiatrist. Continue with current treatment plan. Justification for Continued Inpatient Stay: Moving this patient to a less restrictive environment would likely result in decompensation. Request Healthcare Surrogate/Guardian Advocate?: No (1) Major depressive disorder Qualifiers: Major depression recurrence: recurrent Active/Remission status: currently active Major depression episode severity: severe Psychotic features: without psychotic features Qualified Code(s): F33.2 - Major depressive disorder, recurrent severe without psychotic features
[2018-03-06] MEDS: OLANZapine 2.5 MG Tablet PO SCH (20:04)
[2018-03-07] MEDS: Senna/Docusate Sodium 8.6/50 MG Tablet PO SCH ×3 (00:28→20:52)
[2018-03-07] MEDS: Megestrol Acetate Liq 400 MG/10 ML UDC PO SCH (09:11)
--- NOTE | 2018-03-07 17:44 | P.PNPSY ---
Subjective Chief Complaint: Major Depressive Disorder Remarks: Patient seen for follow-up, chart reviewed. Discussion with nursing staff reported that the patient continues with paranoia, stating that it is the end of the world, refusing all her medications aside from Zyprexa continues report feeling depressed and hopeless. Patient was found in blade on unit noted B, cooperative. Patient states that he has been feeling "the same" and states that over the weekend he did try to walk around the unit and participate more in activities. Patient stated his mood has been "up and down" stating more down than up but that he is feeling less depressed. Patient continues report of hallucinations of voices telling him "heart attack" and they are still present "quite a bit" last time being less night as well as this morning. Patient states that he feels that he is in a "horrible situation". Patient continues with perseveration that he has no place to go and no home. Patient also reports that he was shown a picture of his home as well as his van and that had been changed color and believing that someone else was living in his home and acquired his belongings. Review of Systems All other systems reviewed negative except as stated in HPI Mental Status Examination Appearance: Appropriate, Other (In [facility]) Consciousness: Alert Orientation: Person, Place, Date/Time Speech: Slow Language: Adequate Fund of Knowledge: Inadequate Attention and Concentration: Inadequate Memory: Unremarkable Mood: Sad Affect: Sad Thought Process & Associations: Disorganized (At times) Thought Content: Hallucinations, Preoccupations (with medications ), Delusional Hallucination Type: Auditory Delusion Type: Paranoid Suicidal Ideation: Yes Suicidal Plan: No Suicidal Intention: No Homicidal Ideation: No Homicidal Plan: No Homicidal Intention: No Insight: Poor Judgment: Poor Assessment and Plan - Assessment (1) Major depressive disorder Code(s): F32.9 - Major depressive disorder, single episode, unspecified Status : Acute - Plan Plan: Patient this time continues with paranoid bizarre delusions, continues to have paranoia as well as depressed mood although noted to have more interaction with staff and noted to have more affect during interview. We will continue to titrate olanzapine to 7.5 mg p.o. twice daily with upper titration for psychosis we will continue to monitor mood and behavior. Patient appears having to need redirection and encouragement for ADLs. We will order neuro psychological consult for evaluation and determine whether patient has capability of caring for self at this time. Discussion of possibility of referral to an assisted living setting was reviewed with the patient cannot tolerate discussion at this time. Discharge planning in progress. Justification for Continued Inpatient Stay: At risk for further decompensation if at lower level of care. Request Healthcare Surrogate/Guardian Advocate?: No (1) Major depressive disorder Qualifiers: Major depression recurrence: recurrent Active/Remission status: currently active Major depression episode severity: severe Psychotic features: without psychotic features Qualified Code(s): F33.2 - Major depressive disorder, recurrent severe without psychotic features
[2018-03-08] MEDS: Megestrol Acetate Liq 400 MG/10 ML UDC PO SCH (09:23)
[2018-03-08] MEDS: Senna/Docusate Sodium 8.6/50 MG Tablet PO SCH ×2 (09:23→21:35)
--- NOTE | 2018-03-08 15:26 | P.NPEVAL ---
Patient History - Record/History Review Medical Information Review: History of present illness, Surgical history, Prior medical history Reason for Referral: The patient is a 67 year old right handed male who was admitted to the Psychiatry Unit of [facility] on 02/17/2018 under [facility] for suicide attempt with overdose. He had a prior psychiatric admission in 1995. The patient experienced numerous losses contributing to his depression. He has a prior history of GERD, HTN, hypothyroidism, and he recently developed organic hallucinations/delusions with paranoid features. Recent head CT showed chronic white matter changes. The concern is whether he has the neurocognitive capacity to care for himself. He is a high school graduate with some college. He is referred for baseline neurobehavioral status examination to assess cognitive, behavioral and emotional aspects of the injury and to provide treatment recommendations. Please note that this patient's thought processes precluded a more comprehensive evaluation of his neurocognitive status, although sufficient data was gathered to address the specific referral question. [facility] - History History Provided By: Patient, Medical Record - Medical History Medical History: Medical History (Last Reviewed 03/03/18 @ 13:25 by Concepcion Philip) Grief (Acute) Hypothyroid (Acute) HTN (hypertension) (Acute) GERD (gastroesophageal reflux disease) (Acute) - Family History Family History: Family History (Last Reviewed 02/17/18 @ 17:33 by CORWIN Clay) Other Anxiety and depression CAD (coronary artery disease) Heart disease - Tobacco History Second Hand Smoke Exposure: Yes Smoking Status: Refused to answer - Alcohol History How Often Do You Have a Drink Containing Alcohol: Unable to Obtain - Substance Use History Substance History: Unable to Obtain Medications Active Medications Acetaminophen (Tylenol) 650 mg PO Q4H PRN PRN Reason: PAIN SCALE 1 TO 10 Al Hydrox/Mg Hydrox/Simethicone (Mag-Al Plus Susp Liq) 30 ml PO Q6H PRN PRN Reason: DYSPEPSIA Al Hydroxide/Mg Hydroxide (Milk Of Magnesia Liq) 30 ml PO Q12H PRN PRN Reason: Mild Constipation Last Admin: 02/25/18 09:04 Dose: 30 ml Benztropine Mesylate (Cogentin) 1 mg PO BID [facility] Last Admin: 03/08/18 09:23 Dose: Not Given Clonidine HCl (Catapres) 0.1 mg PO Q6H PRN PRN Reason: SBP>180, DBP>95 Diphenhydramine HCl (Benadryl) 50 mg PO HS [facility] Last Admin: 03/07/18 20:52 Dose: 50 mg Hydroxyzine HCl (Atarax) 50 mg PO Q6H PRN PRN Reason: ANXIETY Megestrol Acetate (Megace Liq) 400 mg PO DAILY [facility] Last Admin: 03/08/18 09:23 Dose: Not Given Olanzapine (Zyprexa) 7.5 mg PO DAILY [facility] Last Admin: 03/08/18 09:23 Dose: Not Given Olanzapine (Zyprexa) 7.5 mg PO HS [facility] Last Admin: 03/06/18 20:04 Dose: 7.5 mg Olanzapine (Zyprexa Inj) 5 mg IM Q12H PRN PRN Reason: SEE LABEL COMMENTS Last Admin: 03/07/18 20:51 Dose: 5 mg Polyethylene Glycol (Miralax) 17 gm PO DAILY PRN PRN Reason: CONSTIPATION Senna/Docusate Sodium (Mahogany-Colace) 1 tab PO BID [facility] Last Admin: 03/08/18 09:23 Dose: Not Given Mental Status Assessment - Mental Status Orientation: oriented to: Self, Place, Situation, disoriented to: Time Mental Status: Variable: Learning/memory, Impaired: Thought processing, Language /interactions, Attention Present: Hallucinations, Delusions Adjustment/Coping Assessment - Adjustment/Coping Adjustment/Coping: Moderate: Anxiety, Severe: Depression, Awareness, Insight - Observation In terms of emotional functioning, the patient demonstrated challenges. This patient demonstrated no signs of agitation, impulsivity or disinhibition, although there was remarkable evidence of a formal thought disorder and psychosis. More specifically, this patient was delusional, perseverative and bradyphrenic, and was unable to be redirected for very long from his perseverative concerns regarding his home and van, both of which he is convinced are being used by unknown others. There was some evidence of depression and/or anxiety, as it related to his recent loss of significant other. Thought content was free from suicidal or homicidal, although was significant for paranoid ideation, and thought processes were bradyphrenic and concrete. The patients mood was dysthymic, and his affect was flat. The patient appears to possess no insight or awareness into their situation and within the limits of this brief evaluation, impaired judgment. Behavior - Behavior Agitation: None Treatment Engagement: Minimal - Observation Behaviorally, the patient demonstrated no signs of agitation, impulsivity or disinhibition. Rather, he was somewhat catatonic, barely moving from a supine position on his bed. where he was evaluated. - Goals LTG Status: Deferred STG Status: Deferred - Team Members Team Members: Neuropsychologist Feedback/Education - Barriers to Treatment Capacity to Self-Determine, Cognition, Insight Diagnosis/Discharge Plan - Diagnosis (1) Major neurocognitive disorder due to another medical condition with behavioral disturbance Status: Acute Impression: The overall constellation of neurobehavioral findings during this brief evaluation reveals an individual of average intelligence, with neurocognitive impairments of attention, memory, abstract reasoning and complex problem solving , all of which are inconsistent with the normal aging process. His thought processes are characterized as bradyphrenic, perseverative, tangential and delusional. Diagnostically, the findings of impairment of neurocognition and deficits of activities of daily living meet criteria for major neurocognitive disorder, etiology unclear but certainly related to and exacerbated by his psychiatric state. His delusional percepts are likely organic, given their characteristic within the context of cerebrovascular compromise. Concerning decision making capacity, it is my clinical opinion that this patient does not have decision making capacity, for reasons listed below. Regarding his capacity for caring for himself, it is my clinical opinion that this patient does not have such capacity, and he will require placement in a facility with significant structure to prevent further psychiatric and neurocognitive decompensation. Maximizing Acute Care Outcome: At this point in the recovery process, the patient does not have cognitive capacity as the patient is unable to understand a situation and its likely consequences, nor is the patient able to manipulate information rationally. In other words, this patient lacks decision making capacity. - Discharge Planning Anticipated Problems: Ongoing areas of concern will include behavioral impulsivity, lack of insight and judgment, which will not necessarily improve with time or treatment. Treatment Plan: This clinician will continue to follow with you throughout the course of this patients psychiatric treatment, and I will be available to meet with the patients family/support system to facilitate their understanding and the ongoing care of their family member. The goals of neuropsychological intervention shall be both educational and supportive to the family/support system as is deemed clinically appropriate. Thank you for the opportunity to assist in this patients care. El Tinsley, Ph.D., ABPP Board Certified in Clinical Neuropsychology [place] [employer] [place] Licensed Psychologist #[id number]
[2018-03-08] MEDS: FLUoxetine 10 MG Capsule PO SCH (16:21)
--- NOTE | 2018-03-08 18:02 | P.PNPSY ---
Subjective Chief Complaint: Major Depressive Disorder Remarks: Patient seen for follow, chart reviewed. Discussion nursing staff reported the patient had refused medications this morning. Patient was found lying hospital bed noted B, cooperative stating that he is feeling "worried" continues with poor motivation stating "I have nothing" and when asked about auditory hallucinations patient states "I do not know". Patient states he has been trying to go to groups and be more visible on the unit and was discussed about recommendations and antidepressant to his regimen such as fluoxetine patient began to be preservative on the list of side effects of his current medication and stated that he will not tolerated combination of medications despite psychoeducation provided to the patient as well as benefits versus risks and monitoring of any adverse drug reactions on the unit patient continued to be paranoid and preservative on not wanting to be on combination of any medication. Patient does not have capacity to consent for treatment and addition of fluoxetine was reviewed with [employer] admissions representative (Joanna Montejo ) that was assigned as health care surrogate and guardian advocate to this patient by the court and agreed with recommendation. Review of Systems All other systems reviewed negative except as stated in HPI Mental Status Examination Appearance: Appropriate, Other (In [facility]) Consciousness: Alert Orientation: Person, Place, Date/Time Speech: Slow Language: Adequate Fund of Knowledge: Inadequate Attention and Concentration: Inadequate Memory: Unremarkable Mood: Sad Affect: Sad Thought Process & Associations: Disorganized (At times) Thought Content: Hallucinations (Lessening), Preoccupations (with medications ) , Delusional Hallucination Type: Auditory Delusion Type: Paranoid Suicidal Ideation: Yes Suicidal Plan: No Suicidal Intention: No Homicidal Ideation: No Homicidal Plan: No Homicidal Intention: No Insight: Poor Judgment: Poor Assessment and Plan - Assessment (1) Major depressive disorder Code(s): F32.9 - Major depressive disorder, single episode, unspecified Status : Acute - Plan Plan: Patient this time continues with paranoia regarding his medications, continues with disorganization and difficulty with attempting to participate in discharge planning stating that he has nothing despite being reassured that he continues to have his home. Patient underwent neuropsychological testing which determined the patient this time does not have capacity to participate in medical decision making as well as requiring structured environment post discharge, consult input appreciated. We will add fluoxetine 10 mg p.o. daily with upper titration for depression, continue olanzapine at 7.5 mg p.o. twice daily for psychosis. We will continue to monitor mood and behavior. Continue rest of medications. Discharge planning in progress. Justification for Continued Inpatient Stay: At risk for further decompensation if at lower level of care Request Healthcare Surrogate/Guardian Advocate?: No (1) Major depressive disorder Qualifiers: Major depression recurrence: recurrent Active/Remission status: currently active Major depression episode severity: severe Psychotic features: without psychotic features Qualified Code(s): F33.2 - Major depressive disorder, recurrent severe without psychotic features
[2018-03-08] MEDS: OLANZapine 2.5 MG Tablet PO SCH (21:29)
[2018-03-09] MEDS: Senna/Docusate Sodium 8.6/50 MG Tablet PO SCH ×2 (09:07→21:15)
[2018-03-09] MEDS: Megestrol Acetate Liq 400 MG/10 ML UDC PO SCH (09:10)
[2018-03-09] MEDS: FLUoxetine 10 MG Capsule PO SCH ×3 (09:11→15:59)
--- NOTE | 2018-03-09 13:26 | P.PNPSY ---
Subjective Chief Complaint: Major Depressive Disorder Remarks: Patient seen for follow-up, chart reviewed. Discussion with nursing staff reported that the patient continued to be worried about where he will be going upon discharge, eating 25-50% of his trays. Patient was found lying hospital bed noted B, cooperative. Patient states that he is feeling "okay" and that he is trying to exercise and be more active denying any auditory hallucinations at this time. When asked about when the last time he had perceptual disturbances he states "I do not remember, I think yesterday". When asked about suicide ideation patient becomes to perseverate on not knowing what he is going to do that he has no place to go and begins to being overwhelmed with these thoughts. Review of Systems All other systems reviewed negative except as stated in HPI Mental Status Examination Appearance: Appropriate, Other (In [facility]) Consciousness: Alert Orientation: Person, Place, Date/Time Speech: Slow Language: Adequate Fund of Knowledge: Inadequate Attention and Concentration: Inadequate Memory: Unremarkable Mood: Other ("ok") Affect: Sad Thought Process & Associations: Disorganized (At times) Thought Content: Hallucinations (denies), Preoccupations (with medications ), Delusional Hallucination Type: Auditory Delusion Type: Paranoid Suicidal Ideation: Yes (vague) Suicidal Plan: No Suicidal Intention: No Homicidal Ideation: No Homicidal Plan: No Homicidal Intention: No Insight: Poor Judgment: Poor Assessment and Plan - Assessment (1) Major depressive disorder Code(s): F32.9 - Major depressive disorder, single episode, unspecified Status : Acute - Plan Plan: Patient continues to be paranoid and suspicious with his medications, continues to refuse fluoxetine but adherent with olanzapine. Patient mentions attempting to be more participatory but continues require a lot of prompting and encouragement and continues with marginal improvement of nutritional intake. We will continue to encourage patient to comply with taking all of his medications continues to be very selective. We will continue to monitor mood and behavior. Discharge planning a progress. Justification for Continued Inpatient Stay: At risk for further decompensation if at lower level of care Request Healthcare Surrogate/Guardian Advocate?: No (1) Major depressive disorder Qualifiers: Major depression recurrence: recurrent Active/Remission status: currently active Major depression episode severity: severe Psychotic features: without psychotic features Qualified Code(s): F33.2 - Major depressive disorder, recurrent severe without psychotic features
[2018-03-09] MEDS: OLANZapine 2.5 MG Tablet PO SCH (21:13)
[2018-03-10] MEDS: Megestrol Acetate Liq 400 MG/10 ML UDC PO SCH (09:14)
[2018-03-10] MEDS: Senna/Docusate Sodium 8.6/50 MG Tablet PO SCH ×2 (09:20→21:06)
--- NOTE | 2018-03-10 13:30 | P.DIET ---
Nutritional Evaluation Type of nutrition evaluation: follow-up Nutrition consult regarding: Diet Evaluation (Poor PO Intake) Nutrition screening: Weight Loss > 10 lbs Screening comments: 02/18 MDC Poor PO Intake, Calorie Count Subjective Subjective Comments: Brought forth from previous note: Pt reported to Nursing that he has lost 45-lb recently. Pt's Ht estimated as 71-inches(180.34cm)-used for assessment here Objective - Diagnosis Major Depressive DO, Recurrent - Indications of Malnutrition Characteristics: Weight loss - Objective % IBW: 87 (GPH=389#) Body Weight Used for Calculations: Actual (67.5kg) Energy Needs - Lower Range (kCal/kg): 30 Energy Needs - Upper Range (kCal/kg): 35 Lower Limit kCal/kg (kCals): 2,025 Upper Limit kCal/kg (kCals): 2,363 Lower Limit Protein Factor (Grams per Kg): 1.1 Upper Limit Protein Factor (Grams per Kg): 1.4 Lower Protein Needs (Protein): 74 Upper Protein Needs (Protein): 95 Fluid Factor (ml/kg): 30 Estimated Fluid Needs (ml): 2,025 Dietitian Reviewed in Medical Record: Current diet, Curent medications, Intake & Output, Labs, Medical history Diet Order: Regular, Gatorade w/ meals Oral Diet Intake Amount: Good 75-90% Objective Comments: Meds: Megace 400mg QD (not given today) Feeding - Current PO Supplement Current Supplement: Ensure Enlive Current Supplement Flavor: Vanilla Current Frequency of Supplement: Three times a day Current kCals Provided by Supplement: 350 Current Protein Provided by Supplement: 20 Assessment Assessment: Pt remains on a Regular diet. He is receiving Enlive TID for added nutrition. Per nursing records, pt's PO intake adequate 50% or greater for most meals taken. Noted pt receiving Megace 400mg daily for appetite stimulation, not given today. Labs reviewed. No recent weight recorded. Dietitian Following. Recommendations: 1.Enlive TID for added nutrition 2.Noted pt receiving Megace 400mg daily for appetite stimulation 3.Dietitian Following 4.Please weigh patient and record in [facility] Dietitian to Monitor: Lab values, Supplement acceptance, Intake & Output, Diet tolerance, Weight change, PO Intake, Medical course
--- NOTE | 2018-03-10 15:10 | P.PNPSY ---
Subjective Chief Complaint: Major Depressive Disorder Remarks: Patient seen for follow-up, chart reviewed. Discussion with nursing staff reported that the patient shower yesterday continues report feeling hopeless. Patient was found lying hospital bed noted B, cooperative. Patient mentions having to groups more, compliant with medications continue to be somewhat paranoid and suspicious with taking combination medications. Patient continues with disorganization and feeling overwhelmed when referring to discharge planning specifically patient mentioning that having a place to live and that he will be homeless and requires redirection patient becomes overwhelmed with these thoughts. When asked about his current mood patient reverts back to not knowing what to do worrying of being homeless. Patient denying any auditory hallucinations recently. Review of Systems All other systems reviewed negative except as stated in HPI Mental Status Examination Appearance: Appropriate, Other (In [facility]) Consciousness: Alert Orientation: Person, Place, Date/Time Speech: Slow Language: Adequate Fund of Knowledge: Inadequate Attention and Concentration: Inadequate Memory: Unremarkable Mood: Other ("ok") Affect: Sad Thought Process & Associations: Disorganized (At times) Thought Content: Hallucinations (denies today), Preoccupations (with medications ), Delusional Hallucination Type: Auditory Delusion Type: Paranoid Suicidal Ideation: Yes (vague) Suicidal Plan: No Suicidal Intention: No Homicidal Ideation: No Homicidal Plan: No Homicidal Intention: No Insight: Poor Judgment: Poor Assessment and Plan - Assessment (1) Major depressive disorder Code(s): F32.9 - Major depressive disorder, single episode, unspecified Status : Acute - Plan Plan: Patient continues to endorse some paranoia regarding medications, although noted to be more participatory and less seclusive patient reports improvement in mood and cessation of auditory hallucinations. We will continue current treatment. We will continue to monitor mood and behavior. Discharge planning in progress. Justification for Continued Inpatient Stay: At risk for further decompensation if at lower level of care. Request Healthcare Surrogate/Guardian Advocate?: No (1) Major depressive disorder Qualifiers: Major depression recurrence: recurrent Active/Remission status: currently active Major depression episode severity: severe Psychotic features: without psychotic features Qualified Code(s): F33.2 - Major depressive disorder, recurrent severe without psychotic features
[2018-03-10] MEDS: OLANZapine 2.5 MG Tablet PO SCH (21:05)
[2018-03-11] MEDS: FLUoxetine 10 MG Capsule PO SCH (10:35)
[2018-03-11] MEDS: Senna/Docusate Sodium 8.6/50 MG Tablet PO SCH ×2 (10:36→21:04)
[2018-03-11] MEDS: Megestrol Acetate Liq 400 MG/10 ML UDC PO SCH (10:37)
--- NOTE | 2018-03-11 14:58 | P.PNPSY ---
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 Patient continues markedly depressed and melancholic and anhedonic continues to focus on his feelings that he has lost his house that he is homeless and nothing will ever help him. He is compliant medications for now continue treatment Review of Systems All other systems reviewed negative except as stated in HPI Mental Status Examination Appearance: Appropriate, Other (In [facility]) Consciousness: Alert Orientation: Person, Place, Date/Time Speech: Slow Language: Adequate Fund of Knowledge: Inadequate Attention and Concentration: Inadequate Memory: Unremarkable Mood: Other ("ok") Affect: Sad Thought Process & Associations: Disorganized (At times) Thought Content: Hallucinations (denies today), Preoccupations (with medications ), Delusional Hallucination Type: Auditory Delusion Type: Paranoid Suicidal Ideation: Yes (vague) Suicidal Plan: No Suicidal Intention: No Homicidal Ideation: No Homicidal Plan: No Homicidal Intention: No Insight: Poor Judgment: Poor Assessment and Plan - Assessment (1) Major depressive disorder Code(s): F32.9 - Major depressive disorder, single episode, unspecified Status : Acute - Plan Plan: Patient continues severely depressed and melancholic and anhedonic. He is compliant with medications. The continues to isolate with little interaction Justification for Continued Inpatient Stay: At this time patient would decompensate a place to a lower level of care Discharge Planning: To be determined Request Healthcare Surrogate/Guardian Advocate?: No (1) Major depressive disorder Qualifiers: Major depression recurrence: recurrent Active/Remission status: currently active Major depression episode severity: severe Psychotic features: without psychotic features Qualified Code(s): F33.2 - Major depressive disorder, recurrent severe without psychotic features
[2018-03-11] MEDS: OLANZapine 2.5 MG Tablet PO SCH (21:01)
[2018-03-12] MEDS: Senna/Docusate Sodium 8.6/50 MG Tablet PO SCH ×2 (10:10→20:31)
[2018-03-12] MEDS: Megestrol Acetate Liq 400 MG/10 ML UDC PO SCH (10:11)
[2018-03-12] MEDS: FLUoxetine 10 MG Capsule PO SCH (10:11)
--- NOTE | 2018-03-12 14:28 | P.PNPSY ---
Subjective Chief Complaint: Major Depressive Disorder Remarks: Patient was seen and case discussed with nursing. Patient is complaining of depressed mood. He has fleeting suicidal ideation without intent or plan. Patient feels hopeless and helpless and major stressor is his financial situation. He is largely keeping to himself and laying in his bed. Continues to have intermittent hallucinations telling him the word heart attack Mental Status Examination Appearance: Appropriate, Other (In hospital [facility]) Consciousness: Alert Orientation: Person, Place, Date/Time Speech: Slow Language: Adequate Fund of Knowledge: Inadequate Attention and Concentration: Inadequate Memory: Unremarkable Mood: Other ("ok") Affect: Sad Thought Process & Associations: Disorganized (At times) Thought Content: Hallucinations (denies today), Preoccupations (with medications ), Delusional Hallucination Type: Auditory Delusion Type: Paranoid Suicidal Ideation: Yes (vague) Suicidal Plan: No Suicidal Intention: No Homicidal Ideation: No Homicidal Plan: No Homicidal Intention: No Insight: Poor Judgment: Poor Assessment and Plan - Assessment (1) Major depressive disorder Code(s): F32.9 - Major depressive disorder, single episode, unspecified Status : Acute - Plan Plan: Continue current treatment plan Justification for Continued Inpatient Stay: Patient would decompensate in a less restrictive setting Request Healthcare Surrogate/Guardian Advocate?: No (1) Major depressive disorder Qualifiers: Major depression recurrence: recurrent Active/Remission status: currently active Major depression episode severity: severe Psychotic features: without psychotic features Qualified Code(s): F33.2 - Major depressive disorder, recurrent severe without psychotic features
[2018-03-12] MEDS: OLANZapine 2.5 MG Tablet PO SCH (20:31)
[2018-03-13] MEDS: Megestrol Acetate Liq 400 MG/10 ML UDC PO SCH (08:31)
[2018-03-13] MEDS: Senna/Docusate Sodium 8.6/50 MG Tablet PO SCH ×2 (08:31→22:26)
[2018-03-13] MEDS: FLUoxetine 10 MG Capsule PO SCH (13:04)
--- NOTE | 2018-03-13 14:28 | P.PNPSY ---
Subjective Chief Complaint: Major Depressive Disorder Remarks: Patient was seen and case discussed with nursing. Patient has been refusing Prozac believing it gives him panic attacks. Psychoeducation was done about the biochemistry of Prozac and its half-life. Patient then went on a tirade about Zyprexa. Supportive therapy was attempted. Patient is anxious and spending his time in bed. Continues to have vague suicidal ideation without plan or intent Mental Status Examination Appearance: Appropriate, Other (In [facility]) Consciousness: Alert Orientation: Person, Place, Date/Time Speech: Slow Language: Adequate Fund of Knowledge: Inadequate Attention and Concentration: Inadequate Memory: Unremarkable Mood: Other ("ok") Affect: Sad Thought Process & Associations: Disorganized (At times) Thought Content: Hallucinations (denies today), Preoccupations (with medications ), Delusional Hallucination Type: Auditory (Vague) Delusion Type: Paranoid Suicidal Ideation: Yes (vague) Suicidal Plan: No Suicidal Intention: No Homicidal Ideation: No Homicidal Plan: No Homicidal Intention: No Insight: Poor Judgment: Poor Assessment and Plan - Assessment (1) Major depressive disorder Code(s): F32.9 - Major depressive disorder, single episode, unspecified Status : Acute - Plan Plan: Continue current treatment plan Justification for Continued Inpatient Stay: Patient would decompensate in a less restrictive setting Request Healthcare Surrogate/Guardian Advocate?: No (1) Major depressive disorder Qualifiers: Major depression recurrence: recurrent Active/Remission status: currently active Major depression episode severity: severe Psychotic features: without psychotic features Qualified Code(s): F33.2 - Major depressive disorder, recurrent severe without psychotic features
[2018-03-13] MEDS: OLANZapine 2.5 MG Tablet PO SCH (21:42)
[2018-03-14] MEDS: Megestrol Acetate Liq 400 MG/10 ML UDC PO SCH (09:26)
[2018-03-14] MEDS: Senna/Docusate Sodium 8.6/50 MG Tablet PO SCH ×2 (09:26→20:52)
[2018-03-14] MEDS: FLUoxetine 10 MG Capsule PO SCH (12:18)
--- NOTE | 2018-03-14 15:40 | P.PNPSY ---
Subjective Chief Complaint: Major Depressive Disorder Remarks: Patient seen for follow-up, chart reviewed. Discussion nursing staff reported the patient refused Prozac yesterday. Patient was found lying hospital bed noted to be superficially cooperative today stating that his weekend gone "fair " stating and walk around a bit and have been out for meals a mostly seclusive. Patient states that he continues to have occasional auditory hallucinations when asked when the last time he states "I do not remember" but he described them as "singsong". Patient stated his mood is "not happy" and that he is worried about his current living situation but unable to focus on plan to be able to assist treatment team in the securing possibility of referral to an assisted living facility. Patient when asked about suicide ideations is vague and states "I do not remember". Review of Systems All other systems reviewed negative except as stated in HPI Mental Status Examination Appearance: Appropriate, Other (In [facility]) Consciousness: Alert Orientation: Person, Place, Date/Time Speech: Slow Language: Adequate Fund of Knowledge: Inadequate Attention and Concentration: Inadequate Memory: Unremarkable Mood: Other ("ok") Affect: Sad Thought Process & Associations: Disorganized (At times) Thought Content: Hallucinations (denies today), Preoccupations (with medications ), Delusional Hallucination Type: Auditory (Vague) Delusion Type: Paranoid Suicidal Ideation: Yes (vague) Suicidal Plan: No Suicidal Intention: No Homicidal Ideation: No Homicidal Plan: No Homicidal Intention: No Insight: Poor Judgment: Poor Assessment and Plan - Assessment (1) Major depressive disorder Code(s): F32.9 - Major depressive disorder, single episode, unspecified Status : Acute - Plan Plan: Patient continues with depressed mood along with vague suicide ideations and has been refusing Prozac recently. Patient continued to be suspicious about his medications but is compliant with Zyprexa. Patient is mostly seclusive and only out for meals. We will increase olanzapine to 7.5 mg a.m./10 mg at bedtime for psychosis. Continue rest of medications. Continue to encourage patient to adhere to treatment and participating groups and activities on the unit. Discharge planning in progress. Justification for Continued Inpatient Stay: At risk for further decompensation if at lower level of care Request Healthcare Surrogate/Guardian Advocate?: No (1) Major depressive disorder Qualifiers: Major depression recurrence: recurrent Active/Remission status: currently active Major depression episode severity: severe Psychotic features: without psychotic features Qualified Code(s): F33.2 - Major depressive disorder, recurrent severe without psychotic features
[2018-03-14] MEDS: OLANZapine 10 MG Tablet PO SCH (20:52)
[2018-03-15] MEDS: Senna/Docusate Sodium 8.6/50 MG Tablet PO SCH ×2 (09:31→21:22)
[2018-03-15] MEDS: Megestrol Acetate Liq 400 MG/10 ML UDC PO SCH (10:52)
--- NOTE | 2018-03-15 15:27 | P.PNPSY ---
Subjective Chief Complaint: Major Depressive Disorder Remarks: Patient seen for follow, chart reviewed. Discussion nursing staff reported the patient was take medications last evening with no behavioral disturbances continues to be mostly seclusive to room. Patient was found lying hospital bed noted B, cooperative. Patient states that she was out for breakfast but had return back to the medical history is feeling tired. He reports having had some chest pain less evening and somewhat this morning to have started him on the right side of his chest and then moved toward the left and was reproducible upon palpation. Patient states that seem he is feeling a little jittery but not this morning. Patient reports his mood as being "the same" continues to be worried about "stuff". Patient continues report feeling hopeless but denying any suicide ideations. Today last time being last night which she states "did not last long". Patient continues to have some anxiety when speaking about discharge planning stating that he does not know what he is going to do. Review of Systems All other systems reviewed negative except as stated in HPI Mental Status Examination Appearance: Appropriate, Other (In hospital [facility]) Consciousness: Alert Orientation: Person, Place, Date/Time Speech: Slow Language: Adequate Fund of Knowledge: Inadequate Attention and Concentration: Inadequate Memory: Unremarkable Mood: Other ("ok") Affect: Sad Thought Process & Associations: Disorganized (At times) Thought Content: Hallucinations (denies today), Preoccupations (with medications ), Delusional Hallucination Type: Auditory (denies today) Delusion Type: Paranoid Suicidal Ideation: No Suicidal Plan: No Suicidal Intention: No Homicidal Ideation: No Homicidal Plan: No Homicidal Intention: No Insight: Poor Judgment: Poor Assessment and Plan - Assessment (1) Major depressive disorder Code(s): F32.9 - Major depressive disorder, single episode, unspecified Status : Acute - Plan Plan: Patient at this time continues with some disorganization and anxiety when speaking about discharge planning and where he will be living despite patient having a home to go to. Patient continues report feeling depressed with intermittent suicide ideations but did not have any suicide ideations today. We will increase fluoxetine to 20 mg p.o. daily, continue rest of medications. We will order EKG due to patient's recent report of having had chest pain less evening and some this morning. We will continue to monitor mood and behavior. Discharge planning a progress. Justification for Continued Inpatient Stay: At risk for further decompensation if at lower level of care. Request Healthcare Surrogate/Guardian Advocate?: No (1) Major depressive disorder Qualifiers: Major depression recurrence: recurrent Active/Remission status: currently active Major depression episode severity: severe Psychotic features: without psychotic features Qualified Code(s): F33.2 - Major depressive disorder, recurrent severe without psychotic features
[2018-03-15] MEDS: FLUoxetine 10 MG Capsule PO SCH (18:53)
[2018-03-15] MEDS: OLANZapine 10 MG Tablet PO SCH (21:22)
[2018-03-16] MEDS: Senna/Docusate Sodium 8.6/50 MG Tablet PO SCH ×2 (09:05→20:42)
[2018-03-16] MEDS: Megestrol Acetate Liq 400 MG/10 ML UDC PO SCH (09:07)
--- NOTE | 2018-03-16 10:33 | ECG ---
Date Performed: 03/15/2018 Time Performed: 15:31:47 PTAGE: 67 years EKG: Sinus rhythm Since the previous tracing, no significant change noted BORDERLINE ECG PREVIOUS TRACING : 02/18/2018 07.02 DOCTOR: Arleth Garsia Interpretating Date/Time 03/16/2018 10:31:28
--- NOTE | 2018-03-16 10:56 | P.PNPSY ---
Subjective Chief Complaint: Major Depressive Disorder Remarks: Patient seen for follow-up, chart reviewed. Patient continues to be noted to be isolative but off her meals, participating scarcely in groups. Patient was found lying hospital bed noted B, cooperative. Patient states that he is feeling "the same", continues report feeling worried about where she will go upon discharge, denying any auditory or visual hallucinations but did report hearing "singsong but denying any voices. Patient denies any suicide ideations today reports sleeping well last evening and agrees to participate more in groups and activities. Patient was directed to participate in group activities after interview which she agreed. Review of Systems All other systems reviewed negative except as stated in HPI Mental Status Examination Appearance: Appropriate, Other (In hospital [facility]) Consciousness: Alert Orientation: Person, Place, Date/Time Speech: Slow Language: Adequate Fund of Knowledge: Inadequate Attention and Concentration: Inadequate Memory: Unremarkable Mood: Other ("The same") Affect: Sad Thought Process & Associations: Intact, Disorganized (At times) Thought Content: Hallucinations (denies any voices but states hearing "singsong "), Preoccupations (Of where he will be discharged to), Delusional Hallucination Type: Auditory (denies today) Delusion Type: Paranoid Suicidal Ideation: No Suicidal Plan: No Suicidal Intention: No Homicidal Ideation: No Homicidal Plan: No Homicidal Intention: No Insight: Poor Judgment: Poor Assessment and Plan - Assessment (1) Major depressive disorder Code(s): F32.9 - Major depressive disorder, single episode, unspecified Status : Acute - Plan Plan: Patient continues to be isolative and attending groups when directed has been off her meals with adequate p.o. intake. Patient continues to be depressed, fluoxetine recently increased to 20 mg daily yesterday. No suicide ideations today. We will continue current treatment regimen for now, we will continue to monitor mood and behavior. Continue to encourage patient to participate in groups and activities on the unit. Discharge planning a progress Justification for Continued Inpatient Stay: At risk for further decompensation if at lower level of care. Request Healthcare Surrogate/Guardian Advocate?: No (1) Major depressive disorder Qualifiers: Major depression recurrence: recurrent Active/Remission status: currently active Major depression episode severity: severe Psychotic features: without psychotic features Qualified Code(s): F33.2 - Major depressive disorder, recurrent severe without psychotic features
[2018-03-16] MEDS: FLUoxetine 20 MG Capsule PO SCH ×2 (11:09→14:17)
[2018-03-16] MEDS: OLANZapine 10 MG Tablet PO SCH (20:42)
[2018-03-17] MEDS: Senna/Docusate Sodium 8.6/50 MG Tablet PO SCH ×2 (09:09→21:08)
[2018-03-17] MEDS: Megestrol Acetate Liq 400 MG/10 ML UDC PO SCH (09:12)
[2018-03-17] MEDS: FLUoxetine 20 MG Capsule PO SCH (10:58)
--- NOTE | 2018-03-17 12:21 | P.DIET ---
Nutritional Evaluation Type of nutrition evaluation: follow-up Nutrition consult regarding: Diet Evaluation (Poor PO Intake) Nutrition screening: Weight Loss > 10 lbs Screening comments: 02/18 MDC Poor PO Intake, Calorie Count Subjective Subjective Comments: Pt in his room when visited and he was informed that lunch had arrived and he should get out of bed and go to the dayroom for lunch. Pt responded w/"lunch"?, and "okay". Pt got out of bed and walked to the dayroom to eat his lunch. Pt reports that he is drinking the Ensure-"I drink those". Brought forth from previous note: Pt reported to Nursing that he has lost 45-lb recently. Pt's Ht estimated as 71-inches(180.34cm)-used for assessment here Objective - Diagnosis Major Depressive DO, Recurrent - Indications of Malnutrition Characteristics: Weight loss - Objective % IBW: 87 (TQO=773#) Body Weight Used for Calculations: Actual (67.5kg) Energy Needs - Lower Range (kCal/kg): 30 Energy Needs - Upper Range (kCal/kg): 35 Lower Limit kCal/kg (kCals): 2,025 Upper Limit kCal/kg (kCals): 2,363 Lower Limit Protein Factor (Grams per Kg): 1.1 Upper Limit Protein Factor (Grams per Kg): 1.4 Lower Protein Needs (Protein): 74 Upper Protein Needs (Protein): 95 Fluid Factor (ml/kg): 30 Estimated Fluid Needs (ml): 2,025 Dietitian Reviewed in Medical Record: Current diet, Curent medications, Intake & Output, Labs Diet Order: Regular, Gatorade w/ meals Oral Diet Intake Amount: Good 75-90% Objective Comments: Meds: Megace 400mg QD-pt refused, Cogentin, Catapres, Prozac, Atarax, Zyprexa Feeding - Current PO Supplement Current Supplement: Ensure Enlive Current Supplement Flavor: Vanilla Current Frequency of Supplement: Three times a day Current kCals Provided by Supplement: 350 Current Protein Provided by Supplement: 20 Assessment Assessment: Pt remains on a Regular diet. He is receiving Enlive TID for added nutrition. Pt refusing the Megace. Pt PO intake is Adequate w/ 50% or greater for meals here. Labs reviewed. Wt changes noted. Dietitian Following. Recommendations: 1.Enlive TID for added nutrition 2.Noted pt receiving Megace 400mg daily for appetite stimulation 3.Dietitian Following 4.Please weigh patient and record in [facility] Dietitian to Monitor: Lab values, Supplement acceptance, Intake & Output, Weight change, PO Intake, Medical course
--- NOTE | 2018-03-17 18:12 | P.PNPSY ---
Subjective Chief Complaint: Major Depressive Disorder Remarks: Patient seen for follow-up, chart reviewed. Discussion with nursing staff reported that the patient patient had a difficult time with sleep last evening as he stated his roommate snores very loudly, continues to report feeling hopeless along with auditory hallucinations of music. Patient was found heavily on unit noted B, cooperative. Patient states that he had attended psychotherapy group and fresh air group which she enjoyed. Patient continues report his mood as being "up and down" stating that he is feeling more down as he is worried about someone having taken over his home and using his vehicle despite multiple attempts to demonstrate the opposite. Patient continues report having auditory hallucinations of "on" and states that sometimes he does hear a voice telling him heart attack. Patient denies any suicide ideations today. Patient continued to be perseverative on the belief that he has no money and no place to live. Review of Systems All other systems reviewed negative except as stated in HPI Mental Status Examination Appearance: Appropriate, Other (In [facility]) Consciousness: Alert Orientation: Person, Place, Date/Time Speech: Slow Language: Adequate Fund of Knowledge: Inadequate Attention and Concentration: Inadequate Memory: Unremarkable Mood: Other ("up and down") Affect: Sad Thought Process & Associations: Intact, Disorganized (At times) Thought Content: Hallucinations (denies any voices but states hearing "singsong "), Preoccupations (of not having a home or identification), Delusional Hallucination Type: Auditory ("song") Delusion Type: Bizarre, Paranoid Suicidal Ideation: No Suicidal Plan: No Suicidal Intention: No Homicidal Ideation: No Homicidal Plan: No Homicidal Intention: No Insight: Poor Judgment: Poor Assessment and Plan - Assessment (1) Major depressive disorder Code(s): F32.9 - Major depressive disorder, single episode, unspecified Status : Acute - Plan Plan: Patient continues report feeling depressed with denying any suicide ideations and preservative on the delusion that someone has overtaking his home and he has no identification and unsure whether he continues to have any money and his accounts. Patient continues to feel overwhelmed when speaking of these topics and continues require encouragement to participate in groups and activities but is maintaining a marginal level hygiene. Continue current treatment. Continue to monitor mood and behavior. Treatment team continually looking for options of having patient transition to a more structured environment for support upon discharge. Justification for Continued Inpatient Stay: At risk for further decompensation if at lower level of care. Request Healthcare Surrogate/Guardian Advocate?: No (1) Major depressive disorder Qualifiers: Major depression recurrence: recurrent Active/Remission status: currently active Major depression episode severity: severe Psychotic features: without psychotic features Qualified Code(s): F33.2 - Major depressive disorder, recurrent severe without psychotic features
[2018-03-17] MEDS: OLANZapine 10 MG Tablet PO SCH (21:08)
[2018-03-18] MEDS: Senna/Docusate Sodium 8.6/50 MG Tablet PO SCH ×2 (09:04→21:43)
[2018-03-18] MEDS: Megestrol Acetate Liq 400 MG/10 ML UDC PO SCH (09:04)
[2018-03-18] MEDS: FLUoxetine 20 MG Capsule PO SCH (12:39)
--- NOTE | 2018-03-18 19:09 | P.PNPSY ---
Subjective Chief Complaint: Major Depressive Disorder Remarks: Patient seen for follow-up, chart reviewed. Discussion with nursing staff reported that the patient patient denying any suicide ideations today has been noted to be attending more groups, continues to endorse hearing music and compliant with medication. Patient was found family on unit noted B, cooperative. Patient states that he had been feeling "okay" reports having improved appetite as well as attending more groups. Patient continues report his mood as being "the same, up and down" states that he is looking forward to things he used to enjoy such as taking a walk, riding a bike. Patient continues to have perseveration and delusion that his house has been taken over by someone else and that his van has been painted different color. Review of Systems All other systems reviewed negative except as stated in HPI Mental Status Examination Appearance: Appropriate, Other (In [facility]) Consciousness: Alert Orientation: Person, Place, Date/Time Speech: Slow Language: Adequate Fund of Knowledge: Inadequate Attention and Concentration: Inadequate Memory: Unremarkable Mood: Other ("up and down") Affect: Sad Thought Process & Associations: Intact, Disorganized (At times) Thought Content: Hallucinations (denies any voices but states hearing "music"), Preoccupations (of not having a home or identification), Delusional Hallucination Type: Auditory ("song") Delusion Type: Bizarre, Paranoid Suicidal Ideation: No Suicidal Plan: No Suicidal Intention: No Homicidal Ideation: No Homicidal Plan: No Homicidal Intention: No Insight: Poor Judgment: Poor Assessment and Plan - Assessment (1) Major depressive disorder Code(s): F32.9 - Major depressive disorder, single episode, unspecified Status : Acute - Plan Plan: Patient continues to have perseveration and delusion that someone had taken over his house and his vehicle and believing he has no money. The patient continues report having depressed mood patient is noted to be more visible on the unit and participating more in groups and activities as well as improve nutritional intake. We will continue current treatment. We will continue to monitor mood and behavior. Treatment he will continue to search for possibility of having patient accepted into a structured environment as patient requires assistance for self-care. Discharge planning a progress. Justification for Continued Inpatient Stay: At risk for further decompensation if at lower level of care. Request Healthcare Surrogate/Guardian Advocate?: No (1) Major depressive disorder Qualifiers: Major depression recurrence: recurrent Active/Remission status: currently active Major depression episode severity: severe Psychotic features: without psychotic features Qualified Code(s): F33.2 - Major depressive disorder, recurrent severe without psychotic features
[2018-03-18] MEDS: OLANZapine 10 MG Tablet PO SCH (21:43)
[2018-03-19] MEDS: Senna/Docusate Sodium 8.6/50 MG Tablet PO SCH ×2 (09:12→20:30)
[2018-03-19] MEDS: Megestrol Acetate Liq 400 MG/10 ML UDC PO SCH (09:12)
[2018-03-19] MEDS: FLUoxetine 20 MG Capsule PO SCH (12:17)
--- NOTE | 2018-03-19 20:20 | P.PNPSY ---
Subjective Chief Complaint: Major Depressive Disorder Remarks: Reviewed electronic medical records and discussed case with staff. Follow-up was conducted in patient's room with nurse present. He was found lying in his bed awake. His mood is still very depressed his affect is blunted. He has attended some groups. He has been compliant with his medication. He reports no improvement in his mood. Mental Status Examination Appearance: Appropriate, Other (In [facility]) Consciousness: Alert Orientation: Person, Place, Date/Time Speech: Slow Language: Adequate Fund of Knowledge: Inadequate Attention and Concentration: Inadequate Memory: Unremarkable Mood: Other ("up and down") Affect: Sad Thought Process & Associations: Intact, Disorganized (At times) Thought Content: Hallucinations (denies any voices but states hearing "music"), Preoccupations (of not having a home or identification), Delusional Hallucination Type: Auditory ("song") Delusion Type: Bizarre, Paranoid Suicidal Ideation: No Suicidal Plan: No Suicidal Intention: No Homicidal Ideation: No Homicidal Plan: No Homicidal Intention: No Insight: Poor Judgment: Poor Assessment and Plan - Assessment (1) Major depressive disorder Code(s): F32.9 - Major depressive disorder, single episode, unspecified Status : Acute - Plan Plan: Patient will be reevaluated Wednesday by the attending psychiatrist. Continue with current treatment plan. Justification for Continued Inpatient Stay: Moving this patient to a less restrictive environment would likely result in decompensation. Request Healthcare Surrogate/Guardian Advocate?: No (1) Major depressive disorder Qualifiers: Major depression recurrence: recurrent Active/Remission status: currently active Major depression episode severity: severe Psychotic features: without psychotic features Qualified Code(s): F33.2 - Major depressive disorder, recurrent severe without psychotic features
[2018-03-19] MEDS: OLANZapine 10 MG Tablet PO SCH (20:28)
[2018-03-20] MEDS: Senna/Docusate Sodium 8.6/50 MG Tablet PO SCH ×2 (09:21→20:29)
[2018-03-20] MEDS: Megestrol Acetate Liq 400 MG/10 ML UDC PO SCH (09:22)
[2018-03-20] MEDS: FLUoxetine 20 MG Capsule PO SCH (12:32)
--- NOTE | 2018-03-20 14:24 | P.PNPSY ---
Subjective Chief Complaint: Major Depressive Disorder Remarks: Reviewed electronic medical records and discussed case with staff. Follow-up was conducted in patient's room. He was found lying the bed. He still presents as very depressed. Reports that he sleeps "on and off". States his appetite is been okay. I have asked him was trying to go to some of the group activities and interact with others as he remains seclusive to his room except for meals. Additionally, I have increased his Prozac 20 mg to 30 mg. Mental Status Examination Appearance: Appropriate, Other (In [facility]) Consciousness: Alert Orientation: Person, Place, Date/Time Speech: Slow Language: Adequate Fund of Knowledge: Inadequate Attention and Concentration: Inadequate Memory: Unremarkable Mood: Other ("up and down") Affect: Sad Thought Process & Associations: Intact, Disorganized (At times) Thought Content: Hallucinations (denies any voices but states hearing "music"), Preoccupations (of not having a home or identification), Delusional Hallucination Type: Auditory ("song") Delusion Type: Bizarre, Paranoid Suicidal Ideation: No Suicidal Plan: No Suicidal Intention: No Homicidal Ideation: No Homicidal Plan: No Homicidal Intention: No Insight: Poor Judgment: Poor Assessment and Plan - Assessment (1) Major depressive disorder Code(s): F32.9 - Major depressive disorder, single episode, unspecified Status : Acute - Plan Plan: Patient will be reevaluated tomorrow by the attending psychiatrist. He remains moderately depressed and his fluoxetine has been increased from 20 mg to 30 mg today. Justification for Continued Inpatient Stay: Moving this patient to a less restrictive environment would likely result in decompensation. Request Healthcare Surrogate/Guardian Advocate?: No (1) Major depressive disorder Qualifiers: Major depression recurrence: recurrent Active/Remission status: currently active Major depression episode severity: severe Psychotic features: without psychotic features Qualified Code(s): F33.2 - Major depressive disorder, recurrent severe without psychotic features
[2018-03-20] MEDS: OLANZapine 10 MG Tablet PO SCH (20:29)
[2018-03-21] MEDS: Senna/Docusate Sodium 8.6/50 MG Tablet PO SCH ×2 (09:22→20:54)
[2018-03-21] MEDS: Megestrol Acetate Liq 400 MG/10 ML UDC PO SCH (09:25)
[2018-03-21] MEDS: FLUoxetine 10 MG Capsule PO SCH (12:39)
--- NOTE | 2018-03-21 17:34 | P.PNPSY ---
Subjective Chief Complaint: Major Depressive Disorder Remarks: Patient seen for follow, chart reviewed. Discussion nursing staff reported the patient eating and drinking well, has a compliant with medications and seems somewhat brighter today. Patient was found lying hospital bed stating that his mood continues to be "up and down" stating that he has been "sort of better". Patient continues to endorse intermittent suicide ideations stating that last time he experiences was last night. Patient continues to be preoccupied and worried about his delusion of someone having overtaking his home and vehicle. Review of Systems All other systems reviewed negative except as stated in HPI Mental Status Examination Appearance: Appropriate, Other (In [facility]) Consciousness: Alert Orientation: Person, Place, Date/Time Speech: Slow Language: Adequate Fund of Knowledge: Inadequate Attention and Concentration: Inadequate Memory: Unremarkable Mood: Other ("up and down") Affect: Sad (Lessening) Thought Process & Associations: Intact, Disorganized (At times) Thought Content: Hallucinations (Denies today), Preoccupations (of not having a home or identification), Delusional Hallucination Type: None Delusion Type: Bizarre, Paranoid Suicidal Ideation: No Suicidal Plan: No Suicidal Intention: No Homicidal Ideation: No Homicidal Plan: No Homicidal Intention: No Insight: Poor Judgment: Poor Assessment and Plan - Assessment (1) Major depressive disorder Code(s): F32.9 - Major depressive disorder, single episode, unspecified Status : Acute - Plan Plan: Patient this time noted with slightly brighter affect, reporting less depressed mood but continues to report intermittent but vague suicide ideations. Patient denying any perceptional services today. Patient encouraged to continue treatment and to participate in groups and activities which she agreed. Patient continued with delusion of stranger having overtaken his home and property. Continue current treatment. Continue to monitor mood and behavior. Discharge planning a progress. Justification for Continued Inpatient Stay: At risk for further decompensation if at lower level of care Request Healthcare Surrogate/Guardian Advocate?: No (1) Major depressive disorder Qualifiers: Major depression recurrence: recurrent Active/Remission status: currently active Major depression episode severity: severe Psychotic features: without psychotic features Qualified Code(s): F33.2 - Major depressive disorder, recurrent severe without psychotic features
[2018-03-21] MEDS: OLANZapine 10 MG Tablet PO SCH (20:54)
[2018-03-22] MEDS: Megestrol Acetate Liq 400 MG/10 ML UDC PO SCH (08:12)
[2018-03-22] MEDS: FLUoxetine 10 MG Capsule PO SCH (08:12)
[2018-03-22] MEDS: Senna/Docusate Sodium 8.6/50 MG Tablet PO SCH ×2 (08:12→21:04)
--- NOTE | 2018-03-22 10:56 | P.PNPSY ---
Subjective Chief Complaint: Major Depressive Disorder Remarks: Patient seen for follow, chart reviewed. Discussion nursing staff reported the patient refused Prozac this morning, continues to be seclusive but is out for meals. Patient was found lying hospital bed noted to be calm and cooperative, continues to have poor motivation, requiring encouragement to participate in groups stating that his mood is "the same" stating that he is worried about his living situation continues of this perseverations delusions that he does not have his house nor his vehicle and wanted someone over took these. Patient denies any suicide ideations today but also reporting having had auditory hallucinations yesterday was a voice telling him "heart attack". Patient was encouraged to comply with treatment. Review of Systems All other systems reviewed negative except as stated in HPI Mental Status Examination Appearance: Appropriate, Other (In [facility]) Consciousness: Alert Orientation: Person, Place, Date/Time Speech: Slow Language: Adequate Fund of Knowledge: Inadequate Attention and Concentration: Inadequate Memory: Unremarkable Mood: Other ("worried") Affect: Sad (Lessening) Thought Process & Associations: Intact Thought Content: Hallucinations ("heart attack"), Preoccupations (of not having a home or identification), Delusional Hallucination Type: Auditory (voice telling him "heart attack") Delusion Type: Bizarre, Paranoid Suicidal Ideation: No Suicidal Plan: No Suicidal Intention: No Homicidal Ideation: No Homicidal Plan: No Homicidal Intention: No Insight: Poor Judgment: Poor Assessment and Plan - Assessment (1) Major depressive disorder Code(s): F32.9 - Major depressive disorder, single episode, unspecified Status : Acute - Plan Plan: Patient continues with perseveration of delusion that someone had overtaken his home in vehicle and reporting his mood surrounding this. He continues to be noted with blunted affect, poor motivation and most compliant with treatment were refused this morning but agreed to continue compliance. We will continue to encourage patient to participate in groups activities. Treatment he will continue to explore options of patient being referred to a more structured environment. Discharge planning in progress. Justification for Continued Inpatient Stay: At risk for decompensation at lower level of care. Request Healthcare Surrogate/Guardian Advocate?: No (1) Major depressive disorder Qualifiers: Major depression recurrence: recurrent Active/Remission status: currently active Major depression episode severity: severe Psychotic features: without psychotic features Qualified Code(s): F33.2 - Major depressive disorder, recurrent severe without psychotic features
[2018-03-22] MEDS: OLANZapine 10 MG Tablet PO SCH (21:05)
[2018-03-23] MEDS: Senna/Docusate Sodium 8.6/50 MG Tablet PO SCH ×2 (10:03→20:32)
[2018-03-23] MEDS: Megestrol Acetate Liq 400 MG/10 ML UDC PO SCH (10:04)
[2018-03-23] MEDS: FLUoxetine 10 MG Capsule PO SCH ×2 (11:55→12:03)
--- NOTE | 2018-03-23 14:57 | P.DIET ---
Nutritional Evaluation Type of nutrition evaluation: follow-up Nutrition consult regarding: Diet Evaluation (Poor PO Intake) Nutrition screening: Weight Loss > 10 lbs Screening comments: 02/18 [facility] Poor PO Intake, Calorie Count Subjective Subjective Comments: PO intake 75% for breakfast and 50% for lunch today. Brought forth from previous note: Pt reported to Nursing that he has lost 45-lb recently. Pt's Ht estimated as 71-inches(180.34cm)-used for assessment here Objective - Diagnosis Major Depressive DO, Recurrent - Indications of Malnutrition Characteristics: Weight loss - Objective % IBW: 87 (LKD=970#) Body Weight Used for Calculations: Actual (67.5kg) Energy Needs - Lower Range (kCal/kg): 30 Energy Needs - Upper Range (kCal/kg): 35 Lower Limit kCal/kg (kCals): 2,025 Upper Limit kCal/kg (kCals): 2,363 Lower Limit Protein Factor (Grams per Kg): 1.1 Upper Limit Protein Factor (Grams per Kg): 1.4 Lower Protein Needs (Protein): 74 Upper Protein Needs (Protein): 95 Fluid Factor (ml/kg): 30 Estimated Fluid Needs (ml): 2,025 Dietitian Reviewed in Medical Record: Current diet, Curent medications, Intake & Output, Labs Diet Order: Regular, Gatorade w/ meals Oral Diet Intake Amount: Good 75-90% Objective Comments: Meds: Megace 400mg QD-pt refused, Cogentin, Catapres, Prozac, Atarax, Zyprexa Feeding - Current PO Supplement Current Supplement: Ensure Enlive Current Supplement Flavor: Vanilla Current Frequency of Supplement: Three times a day Current kCals Provided by Supplement: 350 Current Protein Provided by Supplement: 20 Assessment Assessment: Pt remains on a Regular diet. He is receiving Enlive TID for added nutrition. Pt continues to refuse the Megace. Pt PO intake is Adequate w/ 50% or greater for meals here. Labs reviewed. A current wt is needed. Dietitian to Follow as needed Recommendations: 1. Enlive TID for added nutrition 2. Pt continues to refuse the Megace 3. A Current Wt is Needed 4. Dietitian to Follow as needed
--- NOTE | 2018-03-23 17:24 | P.PNPSY ---
Subjective Chief Complaint: Major Depressive Disorder Remarks: Patient seen for follow-up, chart reviewed. Discussion nursing staff reported the patient had small superficial lesion on the back, but has been reluctant to adhere to fluoxetine in the morning but agreed to take it later in the day. Patient was found sitting in hospital bed noted be calm and cooperative. Patient states that he is feeling "okay" reports having gone to groups, reports adequate appetite, and that his mood has been "the same" but denying any perceptual services or delusions. Patient denies any suicide ideations today. Patient reports having had some constipation recently. Review of Systems All other systems reviewed negative except as stated in HPI Mental Status Examination Appearance: Appropriate, Other (In [facility]) Consciousness: Alert Orientation: Person, Place, Date/Time Speech: Slow Language: Adequate Fund of Knowledge: Inadequate Attention and Concentration: Inadequate Memory: Unremarkable Mood: Other ("The same") Affect: Sad (Lessening) Thought Process & Associations: Intact Thought Content: Preoccupations (of not having a home or identification but lessening), Delusional Hallucination Type: None Delusion Type: Bizarre, Paranoid Suicidal Ideation: No Suicidal Plan: No Suicidal Intention: No Homicidal Ideation: No Homicidal Plan: No Homicidal Intention: No Insight: Poor Judgment: Poor Assessment and Plan - Assessment (1) Major depressive disorder Code(s): F32.9 - Major depressive disorder, single episode, unspecified Status : Acute - Plan Plan: Patient continues with delusion of someone having taken over his home but appears to be lessening in intensity. Patient denying any perceptual disturbances, continues report feeling depressed, denying suicide ideation and noted to have brighter affect today. We will continue current treatment. We will continue to monitor mood and behavior. Discharge planning a progress. Justification for Continued Inpatient Stay: At risk for further decompensation if at lower level of care Request Healthcare Surrogate/Guardian Advocate?: No (1) Major depressive disorder Qualifiers: Major depression recurrence: recurrent Active/Remission status: currently active Major depression episode severity: severe Psychotic features: without psychotic features Qualified Code(s): F33.2 - Major depressive disorder, recurrent severe without psychotic features
[2018-03-23] MEDS: OLANZapine 10 MG Tablet PO SCH (20:33)
[2018-03-24] MEDS: Senna/Docusate Sodium 8.6/50 MG Tablet PO SCH ×2 (09:58→20:11)
[2018-03-24] MEDS: Megestrol Acetate Liq 400 MG/10 ML UDC PO SCH (10:05)
[2018-03-24] MEDS: FLUoxetine 10 MG Capsule PO SCH (12:31)
--- NOTE | 2018-03-24 14:36 | P.PNPSY ---
Subjective Chief Complaint: Major Depressive Disorder Remarks: Patient seen for follow-up, chart reviewed. Discussion with nursing staff reported the patient continues to have some preoccupation with taking his fluoxetine but has been adherent. Patient was found sitting in hospital bed with nurse assisting in wound care of superficial lesion on right shoulder. Patient states he is sleeping well, eating and drinking well, reports attending groups. Patient noted to be brighter, smiling and noted to laugh during interview. Patient denies any auditory hallucinations, denies any suicide ideations today. Patient agrees to continue current treatment and to attend groups today. Patient continues with preoccupation of the delusion that there is someone has overtaking his home but noted to be less intense and not as perseverative on this. Review of Systems All other systems reviewed negative except as stated in HPI Mental Status Examination Appearance: Appropriate, Other (In [facility]) Consciousness: Alert Orientation: Person, Place, Date/Time Speech: Slow Language: Adequate Fund of Knowledge: Inadequate Attention and Concentration: Inadequate Memory: Unremarkable Mood: Other ("The same") Affect: Appropriate Thought Process & Associations: Intact Thought Content: Preoccupations (of not having a home or identification but lessening), Delusional Hallucination Type: None Delusion Type: Bizarre, Paranoid Suicidal Ideation: No Suicidal Plan: No Suicidal Intention: No Homicidal Ideation: No Homicidal Plan: No Homicidal Intention: No Insight: Poor Judgment: Poor Assessment and Plan - Assessment (1) Major depressive disorder Code(s): F32.9 - Major depressive disorder, single episode, unspecified Status : Acute - Plan Plan: Patient noted to have brighter affect, participating more in groups and having adequate p.o. intake. Patient appears to be responding well to current treatment other continues to have some perseveration on delusion of having some overtaken by a stranger. Delusions also seems to be softening now. Patient appears more receptive with participation in discharge planning. We will continue current treatment. We will continue to monitor mood and behavior. Discharge planning in progress. Justification for Continued Inpatient Stay: At risk for further decompensation if at lower level of care Request Healthcare Surrogate/Guardian Advocate?: No (1) Major depressive disorder Qualifiers: Major depression recurrence: recurrent Active/Remission status: currently active Major depression episode severity: severe Psychotic features: without psychotic features Qualified Code(s): F33.2 - Major depressive disorder, recurrent severe without psychotic features
[2018-03-24] MEDS: OLANZapine 10 MG Tablet PO SCH (20:12)
[2018-03-25] MEDS: Megestrol Acetate Liq 400 MG/10 ML UDC PO SCH (08:59)
[2018-03-25] MEDS: Senna/Docusate Sodium 8.6/50 MG Tablet PO SCH ×2 (08:59→21:04)
--- NOTE | 2018-03-25 14:52 | P.PNPSY ---
Subjective Chief Complaint: Major Depressive Disorder Remarks: Patient seen for follow, chart reviewed. Discussion nursing staff reported the patient did not go to groups today, more isolative today, but has been off her meals. Patient was found lying hospital bed noted B, cooperative. Patient states that he is feeling ""just the same", although noted with improved affect , denying suicide ideations or auditory hallucinations today. Patient states that he is feeling tired today but was encouraged to participate in groups when he just nodded. Patient continues to have preoccupation that someone has moved into his home despite multiple encouragement that patient continues to have his residence and vehicle in place. Plan to have patient move in with neighbor continues to be explored as patient will require support after discharge. Patient states that once he is discharged she plans on trying to "catch up on things" referring to his finances and his residence. Review of Systems All other systems reviewed negative except as stated in HPI Mental Status Examination Appearance: Appropriate, Other (In [facility]) Consciousness: Alert Orientation: Person, Place, Date/Time Speech: Slow Language: Adequate Fund of Knowledge: Inadequate Attention and Concentration: Inadequate Memory: Unremarkable Mood: Other ("The same") Affect: Sad Thought Process & Associations: Intact Thought Content: Preoccupations (someone having moved into his home), Delusional Hallucination Type: None Delusion Type: Bizarre, Paranoid Suicidal Ideation: No Suicidal Plan: No Suicidal Intention: No Homicidal Ideation: No Homicidal Plan: No Homicidal Intention: No Insight: Poor Judgment: Poor Assessment and Plan - Assessment (1) Major depressive disorder Code(s): F32.9 - Major depressive disorder, single episode, unspecified Status : Acute - Plan Plan: Patient continues to have preoccupation delusion that someone had moved into his home and taken his belongings but less intense now. We will continue current treatment. We will continue to plan for patient to move in with a neighbor for support prior to transitioning back to independent living. We will continue to monitor mood and behavior. Discharge planning a progress Justification for Continued Inpatient Stay: At risk of further decompensation a lower level of care. Request Healthcare Surrogate/Guardian Advocate?: No (1) Major depressive disorder Qualifiers: Major depression recurrence: recurrent Active/Remission status: currently active Major depression episode severity: severe Psychotic features: without psychotic features Qualified Code(s): F33.2 - Major depressive disorder, recurrent severe without psychotic features
[2018-03-25] MEDS: OLANZapine 10 MG Tablet PO SCH (21:04)
[2018-03-26] MEDS: Senna/Docusate Sodium 8.6/50 MG Tablet PO SCH (10:28)
[2018-03-26] MEDS: Megestrol Acetate Liq 400 MG/10 ML UDC PO SCH (10:29)
[2018-03-26] MEDS: FLUoxetine 10 MG Capsule PO SCH (11:27)
--- NOTE | 2018-03-26 12:26 | P.PNPSY ---
Subjective Chief Complaint: Major Depressive Disorder Remarks: Patient was seen and case discussed with nursing. Patient is pleasant and cooperative with exam. He is seclusive to his room. He has slow soft speech with a flat affect. Patient remains hopeless and helpless with a depressed mood. He has vague suicidal ideation without any intent or plan. He is eating and sleeping well per nursing. No outbursts Mental Status Examination Appearance: Appropriate, Other (In [facility]) Consciousness: Alert Orientation: Person, Place, Date/Time Speech: Slow Language: Adequate Fund of Knowledge: Inadequate Attention and Concentration: Inadequate Memory: Unremarkable Mood: Other ("The same") Affect: Sad Thought Process & Associations: Intact Thought Content: Preoccupations (someone having moved into his home), Delusional Hallucination Type: None Delusion Type: Bizarre, Paranoid Suicidal Ideation: No Suicidal Plan: No Suicidal Intention: No Homicidal Ideation: No Homicidal Plan: No Homicidal Intention: No Insight: Poor Judgment: Poor Assessment and Plan - Assessment (1) Major depressive disorder Code(s): F32.9 - Major depressive disorder, single episode, unspecified Status : Acute - Plan Plan: Continue current treatment plan Justification for Continued Inpatient Stay: Patient would decompensate in a less restrictive setting Request Healthcare Surrogate/Guardian Advocate?: No (1) Major depressive disorder Qualifiers: Major depression recurrence: recurrent Active/Remission status: currently active Major depression episode severity: severe Psychotic features: without psychotic features Qualified Code(s): F33.2 - Major depressive disorder, recurrent severe without psychotic features
[2018-03-26] MEDS: OLANZapine 10 MG Tablet PO SCH (21:26)
[2018-03-27] MEDS: Senna/Docusate Sodium 8.6/50 MG Tablet PO SCH ×3 (10:04→21:35)
[2018-03-27] MEDS: Megestrol Acetate Liq 400 MG/10 ML UDC PO SCH (10:04)
--- NOTE | 2018-03-27 12:28 | P.PNPSY ---
Subjective Chief Complaint: Major Depressive Disorder Remarks: Patient was seen and case discussed with nursing. Patient remains selective with medications. He remains isolative and bedbound. He says he is hearing music today and voices telling him "heart attack." Patient feels hopeless and helpless and is concerned about his future. He has suicidal ideation without intent or plan Mental Status Examination Appearance: Appropriate, Other (In [facility]) Consciousness: Alert Orientation: Person, Place, Date/Time Speech: Slow Language: Adequate Fund of Knowledge: Inadequate Attention and Concentration: Inadequate Memory: Unremarkable Mood: Other ("The same") Affect: Sad Thought Process & Associations: Intact Thought Content: Preoccupations (someone having moved into his home), Delusional Hallucination Type: None Delusion Type: Bizarre, Paranoid Suicidal Ideation: Yes (Fleeting thoughts without intent or plan) Suicidal Plan: No Suicidal Intention: No Homicidal Ideation: No Homicidal Plan: No Homicidal Intention: No Insight: Poor Judgment: Poor Assessment and Plan - Assessment (1) Major depressive disorder Code(s): F32.9 - Major depressive disorder, single episode, unspecified Status : Acute - Plan Plan: Continue current treatment plan Justification for Continued Inpatient Stay: Patient would decompensate in a less restrictive setting Request Healthcare Surrogate/Guardian Advocate?: No (1) Major depressive disorder Qualifiers: Major depression recurrence: recurrent Active/Remission status: currently active Major depression episode severity: severe Psychotic features: without psychotic features Qualified Code(s): F33.2 - Major depressive disorder, recurrent severe without psychotic features
[2018-03-27] MEDS: FLUoxetine 10 MG Capsule PO SCH (14:38)
[2018-03-27] MEDS: OLANZapine 10 MG Tablet PO SCH (21:35)
[2018-03-28] MEDS: Senna/Docusate Sodium 8.6/50 MG Tablet PO SCH ×2 (08:56→21:30)
[2018-03-28] MEDS: Megestrol Acetate Liq 400 MG/10 ML UDC PO SCH (08:57)
[2018-03-28] MEDS: FLUoxetine 10 MG Capsule PO SCH ×2 (12:40→12:41)
--- NOTE | 2018-03-28 19:04 | P.PNPSY ---
Subjective Chief Complaint: Major Depressive Disorder Remarks: Patient seen for follow up; chart reviewed. Discussion with nursing staff reported patient visible on the unit, less isolative. Patient was found lying on hospital bed, calm and cooperative. He states feeling "ok", good appetite, less constipation, has AH of "song", denies any SI. Review of Systems All other systems reviewed negative except as stated in HPI Mental Status Examination Appearance: Appropriate, Other (In [facility]) Consciousness: Alert Orientation: Person, Place, Date/Time Speech: Slow Language: Adequate Fund of Knowledge: Inadequate Attention and Concentration: Inadequate Memory: Unremarkable Mood: Other ("ok i guess") Affect: Sad (lessening) Thought Process & Associations: Intact Thought Content: Preoccupations (someone having moved into his home but lessening), Delusional Hallucination Type: None Delusion Type: Bizarre, Paranoid (lessening) Suicidal Ideation: No Suicidal Plan: No Suicidal Intention: No Homicidal Ideation: No Homicidal Plan: No Homicidal Intention: No Insight: Poor Judgment: Impulsive Assessment and Plan - Assessment (1) Major depressive disorder Code(s): F32.9 - Major depressive disorder, single episode, unspecified Status : Acute - Plan Plan: Patient with improvement in mood, continues with preoccupation of someone having moved into his home but less intense today. Denies any suicidal ideation , continues with perceptual disturbances of a song. Patient also with preoccupation with the amount of tablets he takes. Continue current treatment, continue to monitor mood and behavior. Discharge planning in progress. Justification for Continued Inpatient Stay: At risk for further decompensation at lower level of care. Request Healthcare Surrogate/Guardian Advocate?: No (1) Major depressive disorder Qualifiers: Major depression recurrence: recurrent Active/Remission status: currently active Major depression episode severity: severe Psychotic features: without psychotic features Qualified Code(s): F33.2 - Major depressive disorder, recurrent severe without psychotic features
[2018-03-28] MEDS: OLANZapine 10 MG Tablet PO SCH (21:31)
[2018-03-29] MEDS: Senna/Docusate Sodium 8.6/50 MG Tablet PO SCH ×2 (08:35→20:29)
[2018-03-29] MEDS: Megestrol Acetate Liq 400 MG/10 ML UDC PO SCH (08:35)
[2018-03-29] MEDS: FLUoxetine 10 MG Capsule PO SCH (10:17)
--- NOTE | 2018-03-29 19:56 | P.PNPSY ---
Subjective Chief Complaint: Major Depressive Disorder Remarks: Patient seen for follow, chart reviewed. No behavioral changes with patient recently. Patient was found lying hospital bed and noted B, cooperative. Patient states that he is feeling "okay" reports sleeping well, eating and drinking well, and attending groups. Patient continues to have the belief that he has lost everything and that there are other people having overtaking his home in vehicle. Patient continues to be somewhat focused on his medications but has been compliant. Patient noted be preoccupied with these thoughts and had to be redirected to go have his lunch. Review of Systems All other systems reviewed negative except as stated in HPI Mental Status Examination Appearance: Appropriate, Other (In hospital [facility]) Consciousness: Alert Orientation: Person, Place, Date/Time Speech: Slow Language: Adequate Fund of Knowledge: Inadequate Attention and Concentration: Inadequate Memory: Unremarkable Mood: Other ("ok i guess") Affect: Sad (lessening) Thought Process & Associations: Intact Thought Content: Preoccupations (someone having moved into his home but lessening), Delusional Hallucination Type: None Delusion Type: Bizarre, Paranoid (lessening) Suicidal Ideation: No Suicidal Plan: No Suicidal Intention: No Homicidal Ideation: No Homicidal Plan: No Homicidal Intention: No Insight: Poor Judgment: Impulsive Assessment and Plan - Assessment (1) Major depressive disorder Code(s): F32.9 - Major depressive disorder, single episode, unspecified Status : Acute - Plan Plan: Patient continues to have these preoccupations of perseveration on these thoughts that someone has taken over his home and that he has lost everything. Patient becomes preoccupied with these thoughts and has to be redirected. Patient to continue current treatment. Continue to monitor mood and behavior. Discharge planning in progress. Justification for Continued Inpatient Stay: At risk of further decompensation a lower level of care. Request Healthcare Surrogate/Guardian Advocate?: No (1) Major depressive disorder Qualifiers: Major depression recurrence: recurrent Active/Remission status: currently active Major depression episode severity: severe Psychotic features: without psychotic features Qualified Code(s): F33.2 - Major depressive disorder, recurrent severe without psychotic features
[2018-03-29] MEDS: OLANZapine 10 MG Tablet PO SCH (20:29)
[2018-03-30] MEDS: Senna/Docusate Sodium 8.6/50 MG Tablet PO SCH ×2 (08:38→20:53)
[2018-03-30] MEDS: Megestrol Acetate Liq 400 MG/10 ML UDC PO SCH ×2 (08:43→09:48)
[2018-03-30] MEDS: FLUoxetine 10 MG Capsule PO SCH (12:29)
--- NOTE | 2018-03-30 12:38 | P.PNPSY ---
Subjective Chief Complaint: Major Depressive Disorder Remarks: Patient seen for follow-up, chart reviewed. Discussion nursing staff reported the patient was disappointed about not having been able to be discharged yesterday. Patient was found lying hospital bed noted be preoccupied with his home and continues to have believes that someone had overtaking his vehicle in his house. Patient was advised of the need to have services resumed as he had been shut down due to his absence. He reports his mood as being "good" denying any perceptional services or delusions today. Patient states that he is unsure what he will do when he goes home. He was advised that he will have support, social/medical services also follow-up appointments if and when patient is discharged back to his home. Review of Systems All other systems reviewed negative except as stated in HPI Mental Status Examination Appearance: Appropriate, Other (In [facility]) Consciousness: Alert Orientation: Person, Place, Date/Time Speech: Slow Language: Adequate Fund of Knowledge: Inadequate Attention and Concentration: Inadequate Memory: Unremarkable Mood: Good Affect: Blunt Thought Process & Associations: Intact Thought Content: Preoccupations (someone having moved into his home but lessening), Delusional Hallucination Type: None Delusion Type: Bizarre, Paranoid (lessening) Suicidal Ideation: No Suicidal Plan: No Suicidal Intention: No Homicidal Ideation: No Homicidal Plan: No Homicidal Intention: No Insight: Poor Judgment: Impulsive Assessment and Plan - Assessment (1) Major depressive disorder Code(s): F32.9 - Major depressive disorder, single episode, unspecified Status : Acute - Plan Plan: Patient continues to have mild perseveration on the belief that someone has overtaking his home and his vehicle. We will patient to continue current treatment. [facility] is involved in assisting with safe discharge plan. Patient will also have social and medical services implemented in his home for support upon discharge. We will continue to monitor mood and behavior. Discharge planning in progress. Justification for Continued Inpatient Stay: At risk for further decompensation if at lower level of care Request Healthcare Surrogate/Guardian Advocate?: No (1) Major depressive disorder Qualifiers: Major depression recurrence: recurrent Active/Remission status: currently active Major depression episode severity: severe Psychotic features: without psychotic features Qualified Code(s): F33.2 - Major depressive disorder, recurrent severe without psychotic features
[2018-03-30] MEDS: OLANZapine 10 MG Tablet PO SCH (20:53)
[2018-03-31] MEDS: Senna/Docusate Sodium 8.6/50 MG Tablet PO SCH ×2 (08:51→21:09)
[2018-03-31] MEDS: Megestrol Acetate Liq 400 MG/10 ML UDC PO SCH (08:51)
[2018-03-31] MEDS: FLUoxetine 10 MG Capsule PO SCH (11:48)
--- NOTE | 2018-03-31 14:15 | P.PNPSY ---
Subjective Chief Complaint: Major Depressive Disorder Remarks: Patient seen for follow up; chart reviewed. Discussion with nursing staff reported patient compliant with medications, more visible. Patient was found lying on hospital bed, calm and cooperative. He states that he is feeling "good " reported have a shower today, reports faint whispers when asked about auditory hallucinations. Patient denying any SI or HI. Patient continues to be less perseverative on the delusion that someone has overtaking his house and vehicle. Review of Systems All other systems reviewed negative except as stated in HPI Mental Status Examination Appearance: Appropriate, Other (In [facility]) Consciousness: Alert Orientation: Person, Place, Date/Time Speech: Slow Language: Adequate Fund of Knowledge: Inadequate Attention and Concentration: Inadequate Memory: Unremarkable Mood: Good Affect: Blunt Thought Process & Associations: Intact Thought Content: Thought blocking, Preoccupations (someone having moved into his home but lessening), Delusional Hallucination Type: Auditory (whispers) Delusion Type: Bizarre, Paranoid (lessening) Suicidal Ideation: No Suicidal Plan: No Suicidal Intention: No Homicidal Ideation: No Homicidal Plan: No Homicidal Intention: No Insight: Poor Judgment: Impulsive Assessment and Plan - Assessment (1) Major depressive disorder Code(s): F32.9 - Major depressive disorder, single episode, unspecified Status : Acute - Plan Plan: Patient continues with improved mood, reporting racing thoughts and hallucinations of whispers, compliant with treatment, is attending groups more visible on the unit. Continue current treatment. Continue to monitor mood and behavior. Discharge planning a progress. Justification for Continued Inpatient Stay: At risk of further decompensation a lower level of care. Request Healthcare Surrogate/Guardian Advocate?: No (1) Major depressive disorder Qualifiers: Major depression recurrence: recurrent Active/Remission status: currently active Major depression episode severity: severe Psychotic features: without psychotic features Qualified Code(s): F33.2 - Major depressive disorder, recurrent severe without psychotic features
[2018-03-31 17:13] VITALS: RESP 18
[2018-03-31] MEDS: OLANZapine 10 MG Tablet PO SCH (21:09)
[2018-04-01 05:41] VITALS: BP 128/63; PULSE 74; TEMP 97.6; O2SAT 95
[2018-04-01] MEDS: Senna/Docusate Sodium 8.6/50 MG Tablet PO SCH (08:20)
[2018-04-01] MEDS: Megestrol Acetate Liq 400 MG/10 ML UDC PO SCH (08:23)
[2018-04-01] MEDS: FLUoxetine 10 MG Capsule PO SCH (10:36)
--- NOTE | 2018-04-01 16:25 | P.DSPSY ---
Psychiatry Discharge Summary Inpatient Psychiatric care?: Yes Advance Directives: No Mental Health Advance Directive: No Health Care Proxy: Yes - Admission Admission Date: February 16, 2018 18:28 - Admission Diagnosis (1) Major depressive disorder Code(s): F32.9 - Major depressive disorder, single episode, unspecified (2) Major neurocognitive disorder due to another medical condition with behavioral disturbance Code(s): F02.81 - Dementia in other diseases classified elsewhere with behavioral disturbance Brief History: Patient is a 67-year-old man, single, domiciled in [place], also security income, with a past psychiatric history of depression one previous psychiatric admission, no previous suicide attempts, no history of self- injurious behavior, with a past medical history significant for GERD, HTN, hypothyroidism, who was brought in by EMS after suicide attempt via overdose in the context of recently having loss a loved one as well as his pets which patient was transferred to the inpatient psychiatry unit after medical stabilization on the medical floor for further psychiatric evaluation and management. Patient was found sitting in hospital chair in day room of the unit noted with dysphoria, psychomotor retardation, neurovegetative symptoms of depression with limited cooperation due to current symptomatology. Patient states he is feeling "not so good" stating that he had taken Zoloft about 25 tablets as he was feeling depressed. He reports having had personal problems of a friend who recently , having been losing weight recently as well as having lost his pets as well. Patient states he has been feeling very lonely, isolated of which led to his overdose which after taking to have tablets of Zoloft expected to . Patient states that he had been previously on his medications but had stopped due to worsening of tinnitus. He reports having had decreased appetite, energy and concentration along with disturbance of sleep and having had suicide ideations for weeks. Patient this time continues report feeling depressed along with suicide ideations but denying any perceptual disturbances or delusions. Family psychiatric history: Unable to assess due to patient limited cooperation interview. Past psychiatric history: Previous psychiatric diagnoses depression, one previous psychiatric admission in 1995, no previous suicide attempts, denies self-injurious behavior. Patient reports previously on medication for depression, Zoloft but discontinued due to adverse drug reactions. Substance use history: Denies Past medical history: GERD, HTN, hypothyroidism Allergies: NKDA Social history: Single, domiciled in [place], also security benefits. Tobacco Use In Past 30 Days: No How Often Do You Have a Drink Containing Alcohol: Never Hospital Course: Patient is a 67-year-old man, single, domiciled in [place], also security income, with a past psychiatric history of depression one previous psychiatric admission, no previous suicide attempts, no history of self- injurious behavior, with a past medical history significant for GERD, HTN, hypothyroidism, who was brought in by EMS after suicide attempt via overdose in the context of recently having loss a loved one as well as his pets which patient was transferred to the inpatient psychiatry unit after medical stabilization on the medical floor for further psychiatric evaluation and management. Patient was started on olanzapine and titrated to 7.5mg daily/10mg HS, fluoxetine 30mg daily, benztropine 1mg BID which he tolerated medications well with no adverse drug reactions, continued on medications for chronic medical illnesses which he tolerated well. He was noted to initially endorse feeling depressed with auditory and visual hallucinations but as treatment progress patient noted with improved mood, with occasional episodes of auditory hallucinations but mostly of music and not distressing. He was able to engage in treatment and participate in groups and activities during admission. Patient continued to deny any suicidal or homicidal ideation, no longer endorsed any visual hallucinations but had some perseveration and anxiety over the possibility that he has lost his home and belongings. He responded well to treatment, was noted to be cooperative with staff, had good behavioral control with no evidence of any verbal or physical aggressive behavior toward others and was noted to have stable mood with treatment. Upon discharge patient reported feeling good denied any perceptual disturbances nor suicidal ideations or homicidal ideations. Patient noted to be anxious with his previous concerns regarding his home and financial accounts but was encouraged to work with DCF worker and social support services placed which he agreed with. Patient agreed to continue treatment and follow up appointments for continuity of care. Patient will be discharged to his home with plan to continue recommendations on an outpatient setting. Supportive psychotherapy provided. Suicide and violence risk assessment on day of discharge both suggest lower imminent risk, and the patient's level of function is adequate for planned level of outpatient care with the assistance of social and medical home health services. It is possible that patient may require more intense level of care with more rigid structured environment such as a long-term but agrees to attempt returning back home with services in place along with support from his and neighbor. Patient has maximized benefit from this inpatient psychiatric hospital stay and to return to psychiatric emergency room for any concerning psychiatric symptoms. Patient agrees with plan. - Discharge Discharge Date: 04/01/18 - Discharge Diagnosis (1) Major depressive disorder Code(s): F32.9 - Major depressive disorder, single episode, unspecified Status : Acute (2) Major neurocognitive disorder due to another medical condition with behavioral disturbance Code(s): F02.81 - Dementia in other diseases classified elsewhere with behavioral disturbance Status: Acute Discharge Disposition: Home - Discharge Instructions Discharge Diet: Heart Healthy Diet - Discharge Time > 30 minutes Mental Status Examination Appearance: Appropriate, Other (In [facility]) Consciousness: Alert Orientation: Person, Place, Date/Time Speech: Slow Language: Adequate Fund of Knowledge: Inadequate Attention and Concentration: Inadequate Memory: Unremarkable Mood: Good Affect: Blunt Thought Process & Associations: Intact Thought Content: Preoccupations (with his home and vehicle) Hallucination Type: None Delusion Type: None, Paranoid (mild) Suicidal Ideation: No Suicidal Plan: No Suicidal Intention: No Homicidal Ideation: No Homicidal Plan: No Homicidal Intention: No Insight: Fair Judgment: Impulsive Discharge/Advance Care Plan - Results Vital Signs: Last Vital Signs Temp 97.6 F 04/01/18 05:41 Pulse 74 04/01/18 05:41 Resp 18 04/01/18 05:41 BP 128/63 04/01/18 05:41 Pulse Ox 95 04/01/18 05:41 Lab Results: Laboratory Results TSH 3.760 uIU/mL (0.358-3.740) H 02/17/18 18:38 Free T4 0.83 ng/dL (0.76-1.46) 02/17/18 18:38 Summary of Procedures: none Imaging: ITS Impressions Abdomen X-Ray 02/18/18 00:00 CONCLUSION: Benign abdomen. Head CT 02/22/18 00:00 CONCLUSION: 1. Chronic changes mild deep white matter changes bilaterally. 2. Nothing acute. No fracture. Pending Results: None - Medications Number of antipsychotic medications at discharge: 1 - Discharge Care Plan Goals to Promote Your Health: * To prevent worsening of your condition and complications * To maintain your health at the optimal level Directions to Meet Your Goals: Take your medications as prescribed Follow your dietary instruction Follow activity as directed Keep your appointments as scheduled Take your immunizations and boosters as scheduled If your symptoms worsen call your PCP, if no PCP go to Urgent Care Center or Emergency Room For 08/03 questions related to your inpatient stay or results of tests pending at discharge, please contact Dr. John Zee MD at Smoking is Dangerous to Your Health. Avoid second hand smoking (1) Major depressive disorder Qualifiers: Major depression recurrence: recurrent Active/Remission status: currently active Major depression episode severity: severe Psychotic features: without psychotic features Qualified Code(s): F33.2 - Major depressive disorder, recurrent severe without psychotic features (1) Major depressive disorder Qualifiers: Major depression recurrence: recurrent Active/Remission status: currently active Major depression episode severity: severe Psychotic features: without psychotic features Qualified Code(s): F33.2 - Major depressive disorder, recurrent severe without psychotic features
== END 2018-04-01 13:00 | disposition home or self-care (01) ==
LOC: H4EA 18:28 → H250 02-23 12:32 → H4EA 02-23 14:01 → H260 03-03 18:15
PROVIDERS: ADMIT Student in an Organized Health Care Education/Training Program; ATTEND Student in an Organized Health Care Education/Training Program